=== PATIENT | male | born 1965 | race Caucasian/White ===

== ENCOUNTER 2020-12-22 10:15 | Outpatient (CLI) | payer MEDICARE, SELFPAY ==
[2020-12-22 12:20] LABS: Basophils % 1.1 %; Eosinophils # 0.1 10^3/uL (0.0-0.8); Eosinophils % 3.4 %; Hematocrit 42.9 % (42.0-52.0); Hemoglobin 14.3 g/dL (11.7-16.6); Lymphocytes # 1.5 10^3/uL (0.8-4.8); Lymphocytes % 38.5 %; Mean Corpuscular HGB Conc 33.3 g/dL (30.0-36.0); Mean Corpuscular Hemoglobin 33.4 pg (28.0-34.0); Mean Corpuscular Volume 100.2 fL (80-94); Mean Platelet Volume 11.1 fL (7.4-10.4); Monocytes # 0.5 10^3/uL (0.2-0.9); Monocytes % 12.1 %; Neutrophils # 1.69 10^3/uL (1.8-7.7); Neutrophils % 44.6 %; Nucleated Red Blood Cells % 0 %; Platelet Count 71 10^3/cmm (130-400); Red Blood Count 4.28 10^6/uL (4.1-5.3); Red Cell Distribution Width 14.7 % (12.1-15.1); White Blood Count 3.8 10^3/uL (4.0-10.0)
[2020-12-22 12:30] LABS: LAB Peripheral Smear Sent for Review
[2020-12-22 12:32] LABS: Alanine Aminotransferase 17 U/L (0-41); Albumin Level 3.1 g/dL (3.5-5.2); Alkaline Phosphatase 91 IU/L (40-130); Anion Gap 9.2 (5-19); Aspartate Amino Transferase 51 U/L (0-40); Blood Urea Nitrogen 9 mg/dL (6-20); Calcium 8.3 mg/dL (8.5-10.5); Carbon Dioxide 29 mmol/L (22-29); Chloride 109 mmol/L (98-107); Globulin 2.5 g/dL (1.3-4.6); Glomerular Filtration Rate 88.3 mL/min (90-130); Glucose 122 mg/dL (65-115); Lactate Dehydrogenase 190 U/L (135-225); Osmolality Calculated 296 mOsm/kg (285-295); Potassium 4.2 mmol/L (3.5-5.1); Sodium 143 mmol/L (136-145); Total Bilirubin 2.7 mg/dL (0.15-1.2); Total Protein 5.6 g/dL (6.6-8.7)
[2020-12-22 12:48] LABS: Folate Level 9.2 ng/mL (4.5-32.2); Vitamin B12 1103 pg/mL (232-1245)
--- NOTE | 2020-12-24 11:57 | ONC FU_ITS ---
Dr. Cunningham Patient Follow-Up Note Patient: Alexandr Moulton Unit #: [id number]: 1965 Dicatated By: Aj Cunningham M.D.Date of Visit:Dec 22, 2020 Onc Med Follow-up/Prog Note Chief Complaint: Thrombocytopenia and pulmnary nodules. History of Present Illness: This is a 55 year-old man with varying degrees of pancytopenia including moderately severe thrombocytopenia. On 05/09/2019 he was admitted to the hospital after presenting to the emergency room with severe pain in his right chest. He says that it felt like a pulled muscle, but it was severe enough that he couldn't hardly breathe. His evaluation in the emergency room included a CT pulmonary angiogram which showed no direct evidence of pulmonary emboli. Scattered pulmonary nodules were noted in the right upper lobe, right middle lobe, right lower lobe, and left upper lobe with reported differential including septic emboli and metastatic disease. There was a trace of right pleural effusion and there was a small amount of left pleural fluid surrounded by a thick wall, suggesting empyema. The liver contour was nodular, suggesting cirrhosis. His initial laboratory studies included CBC showing hemoglobin 15.0 g, white blood cell count 6000, and platelet count 76,000. The red cell indices were slightly macrocytic. Chem profile showed slightly elevated SGOT with borderline high bilirubin at 1.0 mg/dL. The other liver enzymes were normal. He had further evaluation with echocardiogram which showed normal left and normal right ventricular systolic function. The estimated left ventricular ejection fraction was 66%. There were no significant valve abnormalities noted. His CT abdomen/pelvis showed irregular liver surface and splenomegaly, consistent with cirrhosis. There were no acute findings. His follow-up CBC showed slightly low hemoglobin at 12.9 g with white blood cell count 3200 and platelet count 74,000. His repeat chem profile showed normal liver enzymes with bilirubin stable at 1.0 mg/dL. Albumin was a little low at 3.0 g/dL. I had seen him initially on 05/14/2019. 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 He was given empiric antibiotic coverage with Levaquin and instructions to return in 1 month, but he failed to return for follow-up. He did have a repeat chest CT done through the emergency room in June 2019. It again showed small pulmonary nodules bilaterally. His medical history is otherwise significant for hypertension and for previous back injury which resulted in permanent disability. He has longstanding history of alcohol abuse, which included up to a case of beer per day and some moonshine. He quit drinking in October 2020. INTERIM HISTORY: He had a follow-up visit with Stephanie Baird at the [facility] on 11/06/2020. His CBC at that time showed normal hemoglobin of 15.6 g with white blood cell count 5300 and platelet count 69,000. The red cell indices were slightly macrocytic. His comprehensive metabolic profile showed elevated total bilirubin at 1.9 mg/dL with mildly elevated SGOT and SGPT levels. B12 and folate levels were normal. His repeat CBC on 12/08/2020 showed hemoglobin 14.0 g, white blood cell count 3000, and platelet count 68,000. His bilirubin is 2.1 mg/dL. The SGOT remained mildly elevated. He is seen for a follow-up visit. He indicates that he stopped drinking 49 days ago. He has since then been feeling much better. His main complaint is that his feet hurt and they feel cold all the time. He also complains that they feel numb and tingly, like [id number]. His energy, though, is great. He is able to do light work. ECOG score is 1. He has good appetite and his weight is stable. He does not have fever or night sweats. He has his regular cough. He does not complain of shortness of breath or chest pain. He has no GI complaints. Bladder function has been okay, though he does note that his urine sometimes looks dark. He has chronic back pain, which is unchanged. He says his right leg is numb from his waist to his knee, but that has been going on for years. He has been having some headaches since he stopped drinking. He has not been dizzy or lightheaded. Medications: Gabapentin 1 (300 mg) Capsule Oral t.i.d. Allergies: Codeine Sulfate Vital Signs: Performed on Dec 22, 2020 11:04 Height - 67.00 in Weight - 188.8 lbs (LOW) BSA - 1.97 sq.m BMI - 29.57 Temperature - 98.0 F (LOW) Pulse - 65 /min Respiration - 17 /min BP - 139/82 mm(hg) O2 Sat - 98 % Pain - 0 Physical Examination: Constitutional - He looks pretty good generally, Eyes - Sclerae nonicteric. Conjunctivae clear, ENMT - No lesions noted in the oral cavity, Hematologic/Lymphatic - No cervical, clavicular, or axillary adenopathy, Respiratory - Lungs sound clear with some decrease in air movement bilaterally, Cardiovascular - Heart rhythm is regular. There is no murmur, gallop, or rub noted, Abdomen - Soft. Liver is not enlarged. Spleen is not palpable. There is no abdominal mass or ascites noted and there is no inguinal adenopathy, Extremities - Slight edema. Pedal pulses are palpable bilaterally, Neurologic - No focal neurologic deficits noted. Lab/Imaging: Test performed on Dec 22, 2020 11:54 Folate, Serum 9.2 ng/mL LDH (Total) 190 U/L Sodium 143 mmol/L Vitamin B12 1103 pg/mL Potassium 4.2 mmol/L Chloride 109 mmol/L CO2 29 mmol/L Anion Gap 9.2 BUN 9 mg/dL Creatinine 0.9 mg/dL Cr Clearance (Est) 114.9800 mL/min eGFR 88.3 mL/min Glucose 122 mg/dL Osmolality - Calculated 296 mOsm/kg Calcium 8.3 mg/dL Protein, Total 5.6 g/dL Albumin 3.1 g/dL Globulin 2.5 g/dL Bilirubin, Total 2.7 mg/dL ALT (SGPT) 17 U/L AST (SGOT) 51 U/L Alkaline Phosphatase 91 IU/L WBC 3.8 10 3/uL RBC 4.28 10 6/uL HGB 14.3 g/dL HCT 42.9 % MCV 100.2 fL MCH 33.4 pg MCHC 33.3 g/dL RDW 14.7 % Platelet Count 71 10 3/cmm MPV 11.1 fL Neutrophils 1.69 10 3/uL Lymphocytes 1.5 10 3/uL Monocytes 0.5 10 3/uL Eosinophils 0.1 10 3/uL Basophils 0.0 10 3/uL Neutrophil % 44.6 % Lymphocyte % 38.5 % Monocyte % 12.1 % Eosinophil % 3.4 % Basophils % 1.1 % NRBC % 0 % Problem List: 1. Patient with varying degrees of pancytopenia, but most consistently a moderately severe thrombocytopenia. This is presumed to be due to hypersplenism in association with cirrhosis of the liver. 2. He has a long history of alcohol abuse, and he has CT evidence of liver cirrhosis and associated splenomegaly. 3. He also has had CT evidence of scattered bilateral pulmonary nodules along with small left pleural effusion/thickening. Etiology is uncertain. The findings would be consistent with inflammatory disease versus malignancy. 4. Hypertension. 5. He has a history of prior back injury and back surgery, for which he has been on disability. Problems Addressed with this Encounter and Plan: 1. Patient with varying degrees of pancytopenia, but most consistently a moderately severe thrombocytopenia. This is presumed to be due to hypersplenism in association with cirrhosis of the liver. I will recheck his lab studies today and I will review his blood smear, but I do not think that any additional evaluation is going to be indicated. He will require ongoing follow-up, and I will tentatively plan to see him again in 3 months. 2. He previously had CT evidence of scattered bilateral pulmonary nodules bilaterally. He has had no follow-up since June 2019, and he does need to have a repeat chest CT. Signed By: Aj Cunningham M.D. <<Signature on File>>
== END 2020-12-22 10:16 | disposition home or self-care (01) ==
PROVIDERS: PCP Nurse Practitioner Family; Visit Provider Internal Medicine Medical Oncology
DX: D61.818 Other pancytopenia (principal); D69.6 Thrombocytopenia, unspecified; D73.1 Hypersplenism; K70.30 Alcoholic cirrhosis of liver without ascites; F10.10 Alcohol abuse, uncomplicated; R91.1 Solitary pulmonary nodule; J90 Pleural effusion, not elsewhere classified; I10 Essential (primary) hypertension; Z79.899 Other long term (current) drug therapy
CPT/HCPCS: 80053; 82607; 82746; 83615; 85025; 99214

== ENCOUNTER 2020-12-27 08:02 | Outpatient (CLI) | payer MEDICARE, SELFPAY ==
--- NOTE | 2020-12-27 08:11 | CT_ITS ---
WS: [id number] CT CHEST WITH INTRAVENOUS CONTRAST HISTORY: PULMONARY nodule TECHNIQUE: Contiguous 5 mm axial imaging performed on the thorax. Coronal and sagittal reformats are submitted. All CT scans at [facility] use at least one of these dose optimization techniq ues: automated exposure control; mA and/or kV adjustment per patient size (includes targeted exams wh ere dose is matched to clinical indication); or iterative reconstruction. CONTRAST: Omnipaque 300; 95 mL IV. DLP: 1064.13 mGy-cm. COMPARISON: 05/09/2019 Lungs and central airway: RIGHT lung is clear. Previously described multiple nodules are no longer pr esent. There is much improved aeration. There is extensive pleural thickening throughout the LEFT tho rax with scattered calcifications in the pleural thickening. There is nodularity along the surface of the pleura. All of these findings are stable since 05/09/2019 with no progression. Probably due to pr ior trauma and may be pleurodesis. Pleura: No layering pleural effusion. LEFT pleural thickening is stable Heart and pericardium: Normal size heart with no pericardial effusion. Mediastinum and andreina: No mediastinum or hilar adenopathy. Vessels: Normal size aortic and pulmonary artery. No coronary artery calcifications. Chest wall and lower neck: No soft tissue masses. Upper abdomen: Prior cholecystectomy. No bile duct dilatation. Surface of the liver is nodular sugges ting cirrhosis. Spleen is enlarged but similar to the prior study. Spleen extends over length greater than 13 cm. Small hiatal hernia. Osseous structures: There are numerous prior rib fractures with nonunion of the posterior lateral LEF T thorax. CT/CT chest w con* [id number] IMPRESSION: 1. Previously described pulmonary nodules throughout the RIGHT lung have compl etely resolved since 05/09/2019. 2. Diffuse stable LEFT pleural thickening with calcification. Most likely due to prior trauma. 3. 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 4. Prior cholecystectomy. 5. Cirrhosis with mild splenomegaly.
== END 2020-12-27 08:03 | disposition home or self-care (01) ==
PROVIDERS: PCP Nurse Practitioner Family; Visit Provider Nurse Practitioner Family
DX: R91.1 Solitary pulmonary nodule (principal); K74.60 Unspecified cirrhosis of liver; R16.1 Splenomegaly, not elsewhere classified; Z90.49 Acquired absence of other specified parts of digestive tract; S22.42XA Multiple fractures of ribs, left side, initial encounter for closed fracture; X58.XXXA Exposure to other specified factors, initial encounter
CPT/HCPCS: 71260; Q9967

== ENCOUNTER 2021-01-03 20:35 | Emergency (ER) | payer MEDICARE, SELFPAY ==
[2021-01-03 20:38] VITALS: BP 136/83; PULSE 78; RESP 22; TEMP 36.7; O2SAT 97; BMI 28.5
--- NOTE | 2021-01-03 21:44 | XRR_ITS ---
PROCEDURE INFORMATION: Exam: XR Chest Exam date and time: 01/03/2021 9:47 PM Age: 55 years old Clinical indication: Dyspnea and other: RT arm pain; Additional info: Cp TECHNIQUE: Imaging protocol: XR of the chest. Views: 1 view. COMPARISON: 1. CT chest w con* [id number] 12/27/2020 8:20 AM 2. CR Chest 2 views* [id number] 12/26/2018 3:11:15 AM FINDINGS: Lungs: Right lung remains clear. No acute infiltrates are identified. Pleural spaces: Unremarkable. No pleural effusion. No pneumothorax. Heart/Mediastinum: Heart is within normal limits of size. Bones/joints: There are multiple old left rib fractures and extensive pleural thickening on the left not significantly changed from previous. XR/XR chest 1V portable [id number] IMPRESSION: 1. Old posttraumatic changes in the left hemithorax. 2. No acute finding.
--- NOTE | 2021-01-03 21:44 | ECG_ITS ---
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 Measurements Intervals [place] Rate: 79 P: 68 SD: 126 QRS: 64 QRSD: 100 T: 45 QT: 398 QTc: 456 Interpretive Statements SINUS RHYTHM INCOMPLETE RIGHT BUNDLE BRANCH BLOCK [90+ ms QRS DURATION, TERMINAL R IN V1/V2, 40+ ms S IN I/aVL/V4/V5/V6] INTERPRETATION BASED ON A DEFAULT AGE OF 40 YEARS Compared to ECG 05/09/2019 02:40:29 Incomplete right bundle-branch block now present Sinus tachycardia no longer present Electronically Signed On 01-04-2021 19:27:08 CDT by Manny Oliveros M.D. [email or web address] now [employer]/store/NU/[id number]/[id number] f
[2021-01-04] VITALS (9 sets, daily range): BP systolic 124–158; BP diastolic 71–99; PULSE 67–77; RESP 16–23; O2SAT 96–98
--- NOTE | 2021-01-04 00:43 | W.ED.CHESTPA ---
HPI - Chest Pain General: Chief Complaint: Chest Pain Stated Complaint: cp/sob/right arm numbness Time Seen by Provider: 01/04/21 00:28 Source: patient Mode of arrival: ambulatory Limitations: no limitations History of Present Illness: HPI narrative: 55-year-old male states he has had a cough over the last 3 days. States he started having a sharp right-sided chest pain yesterday is been off and on. States seems to be worse with his cough and with palpation. He has had some dyspnea as well. Denies any dyspnea on exertion. Denies any diaphoresis. He denies nausea or vomiting. He has had no fevers. No known sick contacts. MD complaint: chest pain Associated symptoms: Reports dyspnea; Deny abdominal pain, fever(s), nausea or vomiting Review of Systems Const: Denies: fever(s), chills, body aches or change in appetite Eyes: Denies: blurry vision or eye discomfort ENMT: Denies: throat pain or dental pain Card: Reports: chest pain Resp: Reports: dyspnea and non-productive cough GI: Denies: abdominal pain, nausea, vomiting or diarrhea : Denies: dysuria Musc: Denies: neck pain or back pain Skin/Breast: Denies: rash Neuro: Denies: headache(s) Psych: Denies: depression Chuckie/Lymph: Denies: easy bruising All/Imm: Denies: urticaria Physical Exam Const: COMMON NORMALS: no acute distress, patient oriented x3 and healthy appearing HENMT: COMMON NORMALS: normocephalic and atraumatic HEAD & SCALP: normocephalic and atraumatic Eye: COMMON NORMALS: Equal, round and reactive pupils present and EOMs intact bilaterally PUPIL: Yes Equal, round and reactive pupils present Neck/C-Spine: COMMON NORMALS: full ROM and supple Chest: COMMONS NORMALS: normal inspection of the chest OTHER: point tender over right chest Resp: COMMON NORMALS: normal respiratory effort, No retractions, No use of accessory muscles and clear to auscultation bilaterally AUSCULTATION: clear to auscultation bilaterally Cardio: COMMON NORMALS: regular rate, regular rhythm and No murmurs present (Cardio) RATE: regular rate RHYTHM: regular rhythm GI: COMMON NORMALS: Normal to inspection, nondistended, normoactive bowel sounds present, Soft to palpation, non-tender and no masses PALPATION: Yes Soft to palpation Extremity: COMMON NORMALS: normal to inspection and full ROM Neuro: COMMON NORMALS: patient oriented x3, moves all extremities and no focal motor deficits Psych: COMMON NORMALS: mental status grossly normal, Normal thought process present and cooperative THOUGHT PROCESS: Normal thought process present Skin: COMMON NORMALS: no rashes or lesions noted and no wounds GENERAL SKIN EXAM: no rashes or lesions noted Course Vital Signs: Vital signs: Vital Signs Temperature 98.1 F 01/03/21 20:38 Pulse Rate 78 01/03/21 20:38 Respiratory Rate 20 H 01/04/21 03:10 Blood Pressure 136/83 01/03/21 20:38 Pulse Oximetry 98 01/04/21 03:10 MDM - Chest Pain MDM Narrative: Medical decision making narrative: Patient presents here with chest pain that is atypical in nature. He is point tender on exam and reproduces his pain is initial repeat troponins are negative. CT chest is negative as well. He does have a history of cirrhosis with no abdominal pain. His pain is resolved here. I feel he is stable for discharge. Is no signs of acute coronary syndrome. He is to follow-up his PCP and return if worsening. Lab Data: Labs: Lab Results 01/04/21 01/04/21 01/04/21 Range/Units 01:02 01:02 01:02 WBC 3.9 L (4.0-10.0) 10^3/ uL RBC 4.21 (4.1-5.3) 10^6/u L Hgb 14.1 (11.7-16.6) g/dL Hct 41.8 L (42.0-52.0) % MCV 99.3 H (80-94) fL MCH 33.5 (28.0-34.0) pg MCHC 33.7 (30.0-36.0) g/dL RDW 14.9 (12.1-15.1) % Plt Count 63 L (130-400) 10^3/c mm MPV 10.6 H (7.4-10.4) fL Neut % (Auto) 35.8 % Lymph % (Auto) 48.8 % [place] % (Auto) 11.3 % Eos % (Auto) 2.8 % Baso % (Auto) 1.0 % Neut # (Auto) 1.40 L (1.8-7.7) 10^3/u L Lymph # (Auto) 1.9 (0.8-4.8) 10^3/u L [place] # (Auto) 0.4 (0.2-0.9) 10^3/u L Eos # (Auto) 0.1 (0.0-0.8) 10^3/u L Baso # (Auto) 0.0 (0.0-0.1) 10^3/u L Nucleated RBC % (a uto) 0 % Nucleated RBCs # 0.0 /100WBC D-Dimer (0-0.59) ug/mIFE U Sodium 140 (136-145) mmol/L Potassium 4.2 (3.5-5.1) mmol/L Chloride 107 (98-107) mmol/L Carbon Dioxide 28 (22-29) mmol/L Anion Gap 9.2 (5-19) BUN 9 (6-20) mg/dL Creatinine 0.9 (0.7-1.2) mg/dL GFR Calculation 88.3 L (90-130) mL/min Glucose 96 (65-115) mg/dL Calculated Osmolal ity 289 (285-295) mOsm/k g Calcium 8.6 (8.5-10.5) mg/dL Total Bilirubin 1.8 H (0.15-1.2) mg/dL AST 43 H (0-40) U/L ALT 13 (0-41) U/L Alkaline Phosphata se 94 (40-130) IU/L Troponin T Baselin e 11 (0-15) ng/L Troponin T 120 Min alexander (0-15) ng/L Delta Troponin T (0-10) ABS# NT-Pro-B Natriuret Pep (0-125) pg/mL Total Protein 6.2 L (6.6-8.7) g/dL Albumin 3.2 L (3.5-5.2) g/dL Globulin 3.0 (1.3-4.6) g/dL Lipase (13-60) U/L 01/04/21 01/04/21 01/04/21 Range/Units 01:02 01:02 03:03 WBC (4.0-10.0) 10^3/ uL RBC (4.1-5.3) 10^6/u L Hgb (11.7-16.6) g/dL Hct (42.0-52.0) % MCV (80-94) fL MCH (28.0-34.0) pg MCHC (30.0-36.0) g/dL RDW (12.1-15.1) % Plt Count (130-400) 10^3/c mm MPV (7.4-10.4) fL Neut % (Auto) % Lymph % (Auto) % [place] % (Auto) % Eos % (Auto) % Baso % (Auto) % Neut # (Auto) (1.8-7.7) 10^3/u L Lymph # (Auto) (0.8-4.8) 10^3/u L [place] # (Auto) (0.2-0.9) 10^3/u L Eos # (Auto) (0.0-0.8) 10^3/u L Baso # (Auto) (0.0-0.1) 10^3/u L Nucleated RBC % (a uto) % Nucleated RBCs # /100WBC D-Dimer 0.34 (0-0.59) ug/mIFE U Sodium (136-145) mmol/L Potassium (3.5-5.1) mmol/L Chloride (98-107) mmol/L Carbon Dioxide (22-29) mmol/L Anion Gap (5-19) BUN (6-20) mg/dL Creatinine (0.7-1.2) mg/dL GFR Calculation (90-130) mL/min Glucose (65-115) mg/dL Calculated Osmolal ity (285-295) mOsm/k g Calcium (8.5-10.5) mg/dL Total Bilirubin (0.15-1.2) mg/dL AST (0-40) U/L ALT (0-41) U/L Alkaline Phosphata se (40-130) IU/L Troponin T Baselin e (0-15) ng/L Troponin T 120 Min alexander (0-15) ng/L Delta Troponin T (0-10) ABS# NT-Pro-B Natriuret Pep 160 H (0-125) pg/mL Total Protein (6.6-8.7) g/dL Albumin (3.5-5.2) g/dL Globulin (1.3-4.6) g/dL Lipase 11 L (13-60) U/L 01/04/21 Range/Units 03:05 WBC (4.0-10.0) 10^3/ uL RBC (4.1-5.3) 10^6/u L Hgb (11.7-16.6) g/dL Hct (42.0-52.0) % MCV (80-94) fL MCH (28.0-34.0) pg MCHC (30.0-36.0) g/dL RDW (12.1-15.1) % Plt Count (130-400) 10^3/c mm MPV (7.4-10.4) fL Neut % (Auto) % Lymph % (Auto) % [place] % (Auto) % Eos % (Auto) % Baso % (Auto) % Neut # (Auto) (1.8-7.7) 10^3/u L Lymph # (Auto) (0.8-4.8) 10^3/u L [place] # (Auto) (0.2-0.9) 10^3/u L Eos # (Auto) (0.0-0.8) 10^3/u L Baso # (Auto) (0.0-0.1) 10^3/u L Nucleated RBC % (a uto) % Nucleated RBCs # /100WBC D-Dimer (0-0.59) ug/mIFE U Sodium (136-145) mmol/L Potassium (3.5-5.1) mmol/L Chloride (98-107) mmol/L Carbon Dioxide (22-29) mmol/L Anion Gap (5-19) BUN (6-20) mg/dL Creatinine (0.7-1.2) mg/dL GFR Calculation (90-130) mL/min Glucose (65-115) mg/dL Calculated Osmolal ity (285-295) mOsm/k g Calcium (8.5-10.5) mg/dL Total Bilirubin (0.15-1.2) mg/dL AST (0-40) U/L ALT (0-41) U/L Alkaline Phosphata se (40-130) IU/L Troponin T Baselin e (0-15) ng/L Troponin T 120 Min alexander 12.25 (0-15) ng/L Delta Troponin T 1.25 (0-10) ABS# NT-Pro-B Natriuret Pep (0-125) pg/mL Total Protein (6.6-8.7) g/dL Albumin (3.5-5.2) g/dL Globulin (1.3-4.6) g/dL Lipase (13-60) U/L Imaging Data^: CXR: Radiologist's impression: [address] [address] XRay Report Signed Patient: Alexandr Moulton Unit #: [id number] : 1965 Age/Sex: 55 / M ADM Date: 01/03/21 Loc: ER Room/Bed: Attending Dr: Ordering Provider/Ordering MD: Orlin Baker MD Date of Service: 01/03/21 Procedure(s): XR chest 1V portable [id number] Accession Number(s): [id number] Report Number: [id number] PROCEDURE INFORMATION: Exam: XR Chest Exam date and time: 01/03/2021 9:47 PM Age: 55 years old Clinical indication: Dyspnea and other: RT arm pain; Additional info: Cp TECHNIQUE: Imaging protocol: XR of the chest. Views: 1 view. COMPARISON: 1. CT chest w con* [id number] 12/27/2020 8:20 AM 2. CR Chest 2 views* [id number] 12/26/2018 3:11:15 AM FINDINGS: Lungs: Right lung remains clear. No acute infiltrates are identified. Pleural spaces: Unremarkable. No pleural effusion. No pneumothorax. Heart/Mediastinum: Heart is within normal limits of size. Bones/joints: There are multiple old left rib fractures and extensive pleural thickening on the left not significantly changed from previous. XR/XR chest 1V portable [id number] IMPRESSION: 1. Old posttraumatic changes in the left hemithorax. 2. No acute finding. EKG Data^: EKG 1: Attestation: I personally reviewed and interpreted this EKG as follows: EKG interpretation date: 01/04/21 EKG interpretation time: 20:40 Interpretation: nsr hr [address] or t wave abnormalities qrs 100 qtc 432 EKG 2: Attestation: I personally reviewed and interpreted this EKG as follows: EKG interpretation date: 01/04/21 EKG interpretation time: 04:09 Interpretation: nsr hr [address] or t wave abnormalities qrs 101 qtc 443 Discharge Plan Discharge Patient Disposition: Home Clinical Impression: Chest pain Qualifiers: Chest pain type: unspecified Qualified Code(s): R07.9 - Chest pain, unspecified Condition: Stable Prescriptions: New hydrocodone-acetaminophen 5-325 mg tablet 1 tab PO Q6H PRN (Reason: pain) Qty: 14 RF: 0 Discharge Orders: Discharge ED (Routine); Ordered 01/04/21 Ordered By: Orlin Baker Referrals: Stephanie Baird FNP [Primary Care Provider] - Discharge Diet: Advance as tolerated Discharge Activity: Resume usual activity Patient Instructions: Chest Pain (ED), Opioid Safety Coding Level of Care Code ED Vp Of Customer Experience Strategy for Chg Fwd Exam Comprehensive
[2021-01-04 01:09] LABS: Eosinophils # 0.1 10^3/uL (0.0-0.8); Eosinophils % 2.8 %; Hematocrit 41.8 % (42.0-52.0); Hemoglobin 14.1 g/dL (11.7-16.6); Lymphocytes # 1.9 10^3/uL (0.8-4.8); Lymphocytes % 48.8 %; Mean Corpuscular HGB Conc 33.7 g/dL (30.0-36.0); Mean Corpuscular Hemoglobin 33.5 pg (28.0-34.0); Mean Corpuscular Volume 99.3 fL (80-94); Mean Platelet Volume 10.6 fL (7.4-10.4); Monocytes # 0.4 10^3/uL (0.2-0.9); Monocytes % 11.3 %; Neutrophils % 35.8 %; Nucleated Red Blood Cells % 0 %; Platelet Count 63 10^3/cmm (130-400); Red Blood Count 4.21 10^6/uL (4.1-5.3); Red Cell Distribution Width 14.9 % (12.1-15.1); White Blood Count 3.9 10^3/uL (4.0-10.0)
[2021-01-04 01:23] LABS: D Dimer 0.34 ug/mIFEU (0-0.59)
[2021-01-04 01:29] LABS: Alanine Aminotransferase 13 U/L (0-41); Albumin Level 3.2 g/dL (3.5-5.2); Alkaline Phosphatase 94 IU/L (40-130); Anion Gap 9.2 (5-19); Aspartate Amino Transferase 43 U/L (0-40); Blood Urea Nitrogen 9 mg/dL (6-20); Calcium 8.6 mg/dL (8.5-10.5); Carbon Dioxide 28 mmol/L (22-29); Chloride 107 mmol/L (98-107); Glomerular Filtration Rate 88.3 mL/min (90-130); Glucose 96 mg/dL (65-115); Osmolality Calculated 289 mOsm/kg (285-295); Potassium 4.2 mmol/L (3.5-5.1); Sodium 140 mmol/L (136-145); Total Bilirubin 1.8 mg/dL (0.15-1.2); Total Protein 6.2 g/dL (6.6-8.7)
[2021-01-04 01:31] LABS: Troponin(5th) Baseline 11 ng/L (0-15)
[2021-01-04 01:39] LABS: NT Pro B Type Natriuretic Pept 160 pg/mL (0-125)
[2021-01-04] MEDS: ondansetron 2 mg/ML SDV 2 mL 4 MG IVP (01:42)
[2021-01-04] MEDS: morphine 4 mg/mL SDV 1 mL IVP (01:42)
--- NOTE | 2021-01-04 02:29 | CTR_ITS ---
PROCEDURE INFORMATION: Exam: CTA Chest With Contrast Exam date and time: 01/04/2021 2:33 AM Age: 55 years old Clinical indication: Chest pressure; Prior surgery; Surgery type: Left lung aspiration. ; Patient HX: Anterior chest pain with dyspnea. ; Additional info: Cp TECHNIQUE: Imaging protocol: Computed tomographic angiography of the chest with contrast. 3D rendering (Not supervised by radiologist): MIP and/or 3D reconstructed images were created by the technologist. Radiation optimization: All CT scans at this facility use at least one of these dose optimization techniques: automated exposure control; mA and/or kV adjustment per patient size (includes targeted exams where dose is matched to clinical indication); or iterative reconstruction. Contrast material: OMNI 350; Contrast volume: 75 ml; Contrast route: INTRAVENOUS (IV); COMPARISON: CTA CHEST-PULMONARY EMB [id number] 05/09/2019, CHEST CT DATED 12/27/2020. RADIATION DOSE METRICS: Total DLP (mGy-cm): 584.34 FINDINGS: Pulmonary arteries: Normal. No pulmonary emboli. Aorta: Unremarkable. No aortic aneurysm. No aortic dissection. Lungs: Unchanged extensive pleural thickening with scattered calcifications in the left hemithorax. Stable areas of comet tail sign in the lateral left upper lobe, likely representing round atelectasis. A calcified granuloma is seen in the posteromedial left lung. No pneumothorax. Pleural spaces: See Lungs findings. Heart: Unremarkable. No cardiomegaly. No pericardial effusion. Lymph nodes: Unremarkable. No enlarged lymph nodes. Liver: The liver demonstrates nodular contour and volume redistribution, consistent with cirrhosis. A replaced left hepatic artery is incidentally noted. Gallbladder and bile ducts: The gallbladder has been surgically removed. Spleen: Enlarged spleen measuring 17.6 cm in AP dimension. Small accessory splenules are again noted in the left upper quadrant. Bones/joints: Old rib fracture deformities noted on the left. Degenerative changes of the spine and bilateral shoulder joints noted. Soft tissues: Unremarkable. CT/CT angio chest PE protcl [id number] IMPRESSION: 1. No pulmonary embolus or other acute pathology in the chest. 2. Stable diffuse left pleural thickening with calcifications and rounded atelectasis. 3. Cirrhotic liver with stigmata of portal hypertension, manifested by splenomegaly. Radiation Dose CTDIVOL = (mGy): DLP = 584.34 (mGy-cm)
[2021-01-04] MEDS: iohexol 350 mg/mL 100 mL Btl IV (02:51)
[2021-01-04] MEDS: HYDROmorphone 1 mg/mL INJ 1 mL IVP (03:10)
[2021-01-04 03:28] LABS: Lipase 11 U/L (13-60)
[2021-01-04 03:28] LABS: Troponin 5 2HR 12.25 ng/L (0-15); Troponin 5 2HR Delta 1.25 ABS# (0-10)
--- NOTE | 2021-01-04 03:44 | ECG_ITS ---
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 Measurements Intervals [place] Rate: 78 P: 51 FL: 135 QRS: 56 QRSD: 101 T: 35 QT: 410 QTc: 468 Interpretive Statements SINUS RHYTHM WITH OCCASIONAL VENTRICULAR PREMATURE COMPLEXES Compared to ECG 01/03/2021 20:40:50 Ventricular premature complex(es) now present Incomplete right bundle-branch block no longer present Electronically Signed On 01-04-2021 19:33:20 CDT by Manny Oliveros M.D. [id number]
== END 2021-01-04 04:40 | disposition home or self-care (01) ==
PROVIDERS: Emergency Provider Emergency Medicine; PCP Nurse Practitioner Family
DX: R07.9 Chest pain, unspecified (principal)
CPT/HCPCS: 36415; 71045; 71275; 80053; 83690; 83880; 84484; 85025; 85378; 93005; 96374; 96375; 99284; J1170; J2270; J2405; Q9967

== ENCOUNTER 2021-01-11 08:01 | Outpatient (CLI) | payer MEDICARE, SELFPAY ==
--- NOTE | 2021-01-11 08:08 | US_ITS ---
WS: [id number] ULTRASOUND ABDOMEN LIMITED CLINICAL INFORMATION: ELEVATED LIVER FUNCTION COMPARISON: None. FINDINGS: Exam limited by bowel gas Liver Size: Normal. Craniocaudal length: 12.9 cm. Echogenicity: Dense Surface nodularity: None. Mass (size and location): None. Gallbladder Cholecystectomy Pancreas Normal as visualized. Right kidney: Normal. Hydronephrosis: None. Size: 10.5 cm x 4.6 cm x 5.2 cm. Abdominal aorta and IVC Visualized portions are normal. Ascites: None. US/US abdomen limited [id number] IMPRESSION: Exam limited by bowel gas. 1. Diffuse fatty infiltration of the liver. 2. Cholecystectomy. 3. No hydronephrosis in right kidney.
== END 2021-01-11 08:02 | disposition home or self-care (01) ==
LOC: US 08:03
PROVIDERS: PCP Nurse Practitioner Family; Visit Provider Nurse Practitioner Family
DX: E80.6 Other disorders of bilirubin metabolism (principal); R94.5 Abnormal results of liver function studies; F10.20 Alcohol dependence, uncomplicated; K76.0 Fatty (change of) liver, not elsewhere classified
CPT/HCPCS: 76705

== ENCOUNTER 2021-01-30 22:11 | Emergency (ER) | payer MEDICARE, SELFPAY ==
[2021-01-30 22:16] VITALS: BP 164/68; PULSE 74; RESP 16; TEMP 36.9; O2SAT 98; BMI 28.5
[2021-01-30 22:24] VITALS: BP 156/94; PULSE 69; RESP 24; O2SAT 96
--- NOTE | 2021-01-30 22:28 | XRR_ITS ---
PROCEDURE INFORMATION: Exam: XR Lumbosacral Spine Exam date and time: 01/30/2021 10:31 PM Age: 55 years old Clinical indication: Low back pain; Additional info: Fall, back pain TECHNIQUE: Imaging protocol: XR of the lumbosacral spine. Views: 2 or 3 views. COMPARISON: CT abdomen pelvis w con* [id number] 05/10/2019 8:40 AM FINDINGS: Bones/joints: Multilevel degenerative disc space disease with disc space narrowing and productive degenerative endplate changes throughout the spine. Soft tissues: Unremarkable. Vasculature: Aortic atherosclerotic calcifications. XR/XR lumbar spine 2-3V* [id number] IMPRESSION: 1. Negative for fracture or dislocation. 2. Multilevel degenerative disc space disease with disc space narrowing and productive degenerative endplate changes throughout the spine. 3. Aortic atherosclerotic calcifications.
--- NOTE | 2021-01-30 22:29 | W.ED.FALL ---
HPI - Fall General: Chief Complaint: Fall Stated Complaint: foot pain Time Seen by Provider: 01/30/21 22:15 History of Present Illness: HPI Narrative: Says he has a history of his leg just spasming which he is being treated currently by Dr. Pollard. Said he has been placed Neurontin which not help helping. Patient states he is walking on steps this evening his legs spasmed and he come down on his buttocks and now he has low back pain. Has a history of prior lumbar back surgery. MD complaint: fall Onset (ago): minute(s) Fall from: standing and down stairs (#) Fall witnessed: yes, by family Place fall occurred: home Loss of consciousness: None Prolonged down time: no Symptoms prior to fall: other (Legs and intermittent spasm) Context: tripped/slipped Location of injury: back Severity: mild Severity scale (1-10): 4 Quality: aching Associated symptoms-after fall: Reports no associated symptoms; Denies abdominal pain, chest pain or headache(s) Review of Systems Const: Denies: fever(s), chills or body aches Eyes: Denies: change in vision or blurry vision ENMT: Denies: throat pain or nasal congestion Card: Denies: chest pain or dyspnea on exertion Resp: Denies: dyspnea, productive cough or non-productive cough GI: Denies: abdominal pain, nausea or vomiting : Denies: difficulty urinating Musc: Reports: back pain; Denies: extremity pain Skin/Breast: Denies: rash Neuro: Denies: headache(s) Psych: Denies: anxiety or depression Chuckie/Lymph: Denies: easy bruising Physical Exam Const: COMMON NORMALS: no acute distress, average body habitus and patient oriented x3 HENMT: COMMON NORMALS: normocephalic HEAD & SCALP: normal to inspection and normocephalic FACE & SINUS: normal facial exam Eye: COMMON NORMALS: conjunctivae normal GENERAL EYE: appearance normal, both eyes and all related structures CONJUNCTIVA: Yes conjunctivae normal Neck/C-Spine: COMMON NORMALS: no JVD Chest: COMMONS NORMALS: normal inspection of the chest Resp: COMMON NORMALS: normal respiratory effort Cardio: COMMON NORMALS: no JVD GI: COMMON NORMALS: Normal to inspection, nondistended, normoactive bowel sounds present Back/Pelvis: LUMBAR SPINE/LOWER BACK: Yes lumbar spinal tenderness Neuro: COMMON NORMALS: patient oriented x3 OTHER: Both legs jerk intermittently at the same time Course Vital Signs: Vital signs: Vital Signs Temperature 98.4 F 01/30/21 22:16 Pulse Rate 74 01/30/21 22:16 Respiratory Rate 16 01/30/21 22:16 Blood Pressure 164/68 01/30/21 22:16 Pulse Oximetry 98 01/30/21 22:16 Discharge Plan Discharge Prescriptions: No Action hydrocodone-acetaminophen 5-325 mg tablet 1 tab PO Q6H PRN (Reason: pain) Qty: 14 RF: 0 Coding Level of Care Code ED Tool Grinding Machine Operator for Morteza Mi
[2021-01-30] MEDS: orphenadrine 30 mg/mL Inj 2 mL 60 MG IVP (22:47)
[2021-01-30] MEDS: CELEcoxib 200 mg Capsule 400 MG PO (23:11)
[2021-01-30 23:26] VITALS: BP 128/57; PULSE 72; RESP 22; TEMP 36.4; O2SAT 96
== END 2021-01-30 23:30 | disposition home or self-care (01) ==
PROVIDERS: Emergency Provider Nurse Practitioner Family; PCP Nurse Practitioner Family
DX: R25.2 Cramp and spasm (principal)
CPT/HCPCS: 72100; 96374; 99283; J2360

== ENCOUNTER 2021-05-21 12:50 | Outpatient (CLI) | payer MEDICARE, SELFPAY ==
--- NOTE | 2021-05-21 13:00 | MR_ITS ---
WS: [id number] MRI LUMBAR SPINE NONCONTRAST TECHNIQUE: Sagittal T1, T2 and STIR imaging. Axial T1 and T2 imaging. CLINICAL INFORMATION: CHRONIC LOW BACK PAIN COMPARISON: None. FINDINGS: Mild lumbar curve. No acute compression. Disc space narrowing worse at L2-3 L3-4 L4-5 and L5-S1 with endplate degenerative changes. Slight anterolisthesis L5 on S1. Endplate edema at L2-L3. Subchondral cystic change L3-4. Prior postoperative changes L5-S1 hemilaminectomy. L1-L2: Normal. L2-L3: Mild disc bulging and osteophytic ridging. Left foraminal protrusion with moderate left forami nal narrowing. Right foramen is patent. Mild facet arthropathy. L3-L4: Mild disc bulging and osteophytic ridging. Small left foraminal protrusion with mild left fora christine narrowing. Right foramen is patent. Mild facet arthropathy. L4-L5: Mild disc osteophyte complex with endplate ridging. Small right foraminal protrusion with mild right foraminal narrowing. Left foramen is patent. Mild facet arthropathy. L5-S1: Prior postoperative changes right hemilaminectomy. Mild disc osteophyte complex with endplate ridging. Moderate's right foraminal narrowing. Mild facet arthropathy. Slight narrowing of the right subarticular recess. Visualized pelvic bony structures: Normal. Paravertebral soft tissues: Normal. MR/MR lumbar spine wo con* [id number] IMPRESSION: 1. Mild lumbar curve. No acute compression. Prior postoperative changes L5-S1. 2. Moderate right L5-S1 foraminal narrowing. 3. Right foraminal protrusion L4-5 with mild right foraminal narrowing. 4. Moderate left L2-3 and mild left L3-4 foraminal narrowing. 5. Disc space narrowing L2-L5 with endplate degenerative changes described abo ve.
== END 2021-05-21 12:51 | disposition home or self-care (01) ==
PROVIDERS: PCP Nurse Practitioner Family; Visit Provider Nurse Practitioner Family
DX: M54.5 Low back pain (principal); G62.9 Polyneuropathy, unspecified
CPT/HCPCS: 72148

== ENCOUNTER 2021-05-28 09:27 | Outpatient (CLI) | payer MEDICARE, SELFPAY ==
--- NOTE | 2021-05-28 09:38 | XR_ITS ---
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 Findings: No compression fractures are seen. There is a minimal 0.4 cm subluxation of L5 on S1. There is degen erative disc narrowing at all levels from L2-L3 through L5-S1. Osteoarthritic spurring from L2 throug h L5 is moderate. There is limitation of motion on flexion and extension but no change in subluxation. XR/XR lumbar spine f/e only [id number] Impression: 1. Osteoarthritis and degenerative disc disease from L2-L3 through L5-S1. 2. Subluxation is 0.4 cm of L5 on S1. 3. Limitation of motion and no change in subluxation on flexion and extension.
== END 2021-05-28 09:28 | disposition home or self-care (01) ==
PROVIDERS: PCP Nurse Practitioner Family; Visit Provider Nurse Practitioner
DX: M96.1 Postlaminectomy syndrome, not elsewhere classified (principal); M47.816 Spondylosis without myelopathy or radiculopathy, lumbar region; M51.36 Other intervertebral disc degeneration, lumbar region; M51.37 Other intervertebral disc degeneration, lumbosacral region
CPT/HCPCS: 72120

== ENCOUNTER 2022-09-03 20:38 | Emergency (ER) | payer MEDICARE, SELFPAY ==
[2022-09-03 20:42] VITALS: BP 163/94; PULSE 89; RESP 16; TEMP 36.7; O2SAT 98
--- NOTE | 2022-09-03 20:48 | W.ED.EXTPRO ---
HPI - Extremity Problem General: Chief complaint: Extremity Problem,Nontraumatic Stated complaint: Right arm and shoulder pain Time Seen by Provider: 09/03/22 20:48 History of Present Illness: Mr. Moulton is a 57-year-old gentleman with history of back surgeries presenting to the emergency department due to arm pain. Onset of symptoms is atraumatic without known specific provoking event approximately 2 months ago and has progressively worsened. Pain now includes entire right arm which feels numb and weak. He also endorses some radiation of the right leg. Intensity symptoms is severe and worse with any palpation or range of motion. No other specific changes in health, exacerbating, or alleviating factors identified. Onset (ago): month(s) Location: right and upper extremity Quality: stabbing, aching and sharp Radiation: distal Relieving factors: nothing Exacerbating factors: range of motion and palpation Associated symptoms: Reports no associated symptoms Review of Systems General: Reports: 10 or more systems reviewed and unremarkable except in HPI and below PFSH ED PFSH: Medical History (Updated 09/10/22 @ 06:49 by Saran Lyons MD) Cirrhosis of liver Surgical History (Updated 09/10/22 @ 06:49 by Saran Lyons MD) No significant past surgical history Physical Exam Const: COMMON NORMALS: alert GENERAL APPEARANCE: cooperative and well developed HENMT: COMMON NORMALS: normocephalic and atraumatic HEAD & SCALP: normocephalic and atraumatic Eye: COMMON NORMALS: conjunctivae normal CONJUNCTIVA: Yes conjunctivae normal SCLERA: sclerae normal Neck/C-Spine: COMMON NORMALS: supple GENERAL: Yes trachea midline OTHER: Significant tenderness to palpation of the right trapezius with some evidence of muscle spasm. Resp: COMMON NORMALS: normal respiratory effort EFFORT & INSPECTION: Yes able to speak in complete sentences Cardio: COMMON NORMALS: regular rate and regular rhythm RATE: regular rate RHYTHM: regular rhythm GI: COMMON NORMALS: Soft to palpation PALPATION: Yes Soft to palpation and No Tenderness to palpation present (GI) PERCUSSION: normal to percussion Extremity: NARRATIVE EXTREMITY EXAM: Tenderness to palpation of the anterior and superior right shoulder. Distal CMS intact with limitation in range of motion secondary to pain. No overlying skin lesions. GENERAL: Yes normal exam except as noted and No edema Neuro: COMMON NORMALS: moves all extremities SENSORIUM/ORIENTATION: Yes alert and No Orientation impaired Psych: COMMON NORMALS: mental status grossly normal and Normal thought process present THOUGHT PROCESS: Normal thought process present Course Vital Signs: Vital signs: Vital Signs Temperature 98.1 F 09/03/22 20:42 Pulse Rate 65 09/04/22 00:54 Respiratory Rate 18 09/04/22 00:54 Blood Pressure 136/85 09/04/22 00:54 Pulse Oximetry 97 09/04/22 00:54 Oxygen Delivery Me thod 09/03/22 20:42 MDM - Extremity (Nontraumatic) Medical Decision Making 57-year-old gentleman presenting with arm pain that has been progressive for the past few months. Exam as above. Given radiation to the chest admit that further evaluation is necessary. EKG shows sinus rhythm with incomplete right bundle-branch block, no STEMI. X-rays negative for acute fracture. CT imaging with degenerative changes without acute fracture identified. Upon reassessment after treatment patient feels improved. Given laboratory findings as well as physical exam findings I do not believe that the patient or his inpatient admission at this time. I will plan to have him follow-up with orthopedics and primary care. The results of ED evaluation were discussed with the patient including prescriptions and/or symptomatic cares (if applicable) including appropriate and responsible use, followup plan, and return precautions. The patient verbalized understanding and felt safe for discharge. Lab Data 09/03/22 21:25 09/03/22 21:25 Radiology Impressions Chest X-Ray 09/03/22 21:06 IMPRESSION: 1. 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 2. No acute findings. Humerus X-Ray 09/03/22 21:07 IMPRESSION: No acute findings. Cervical Spine CT 09/03/22 22:12 IMPRESSION: 1. No fracture or acute finding. 2. Progressive degenerative changes at multiple levels as described. Chest CT 09/03/22 22:12 IMPRESSION: 1. Stable chest findings. 2. Stable chronic left pleural thickening with subjacent regions of rounded atelectasis. No acute pulmonary disease identified. 3. Stable splenomegaly with cirrhotic liver morphology and findings of portal hypertension. Head CT 09/03/22 22:12 IMPRESSION: No acute intracranial abnormality. Laboratory Results WBC 2.3 10^3/uL (4.0-10.0) L 09/03/22 21:25 RBC 4.07 10^6/uL (4.1-5.3) L 09/03/22: Hgb 12.4 g/dL (11.7-16.6) 09/03/22: Hct 38.2 % (42.0-52.0) L 09/03/22: MCV 93.9 fl (80-94) 09/03/22: MCH 30.5 pg (28.0-34.0) 09/03/22: MCHC 32.5 g/dL (30.0-36.0) 09/03/22: RDW 15.6 % (12.1-15.1) H 09/03/22: Plt Count 50 10^3/cmm (130-400) L 09/03/22: MPV 10.5 fL (7.4-10.4) H 09/03/22: Neut % (Auto) 45.8 % 09/03/22: Lymph % (Auto) 42.2 % 09/03/22: [place] % (Auto) 9.8 % 09/03/22: Eos % (Auto) 1.8 % 09/03/22: Baso % (Auto) 0.4 % 09/03/22 Neut # (Auto) 1.03 10^3/uL (1.8-7.7) L 09/03/22: Lymph # (Auto) 1.0 10^3/uL (0.8-4.8) 09/03/22: [place] # (Auto) 0.2 10^3/uL (0.2-0.9) 09/03/22: Eos # (Auto) 0.0 10^3/uL (0.0-0.8) 09/03/22: Baso # (Auto) 0.0 10^3/uL (0.0-0.1) 09/03/22: Nucleated RBC % (auto) 0 % 09/03/22: Nucleated RBCs # 0.0 /100WBC 09/03/22: Sodium 144 mmol/L (136-145) 09/03/22: Potassium 3.7 mmol/L (3.5-5.1) 09/03/22 21:25 Chloride 112 mmol/L (98-107) H 09/03/22 21:25 Carbon Dioxide 23 mmol/L (22-29) 09/03/22 21:25 Anion Gap 12.7 (5-19) 09/03/22 21:25 BUN 7 mg/dL (6-20) 09/03/22 21:25 Creatinine 0.8 mg/dL (0.7-1.2) 09/03/22 21:25 GFR Calculation 100.4 mL/min (90-130) 09/03/22 21:25 Glucose 120 mg/dL (65-115) H 09/03/22 21:25 Calculated Osmolality 297 mOsm/kg (285-295) H 09/03/22 21:25 Calcium 8.3 mg/dL (8.5-10.5) L 09/03/22 21:25 Total Bilirubin 1.7 mg/dL (0.15-1.2) H 09/03/22 21:25 AST 38 U/L (0-40) 09/03/22 21:25 ALT 14 U/L (0-41) 09/03/22 21:25 Alkaline Phosphatase 71 U/L (40-130) 09/03/22 21:25 Troponin T Baseline 9 ng/L (0-15) 09/03/22 21:25 Troponin T 120 Minute 9.51 ng/L (0-15) 09/03/22 23:18 Delta Troponin T 0.51 ABS# (0-10) 09/03/22 23:18 C-Reactive Protein 3.0 mg/L (0.0-4.9) 09/03/22 21:25 NT-Pro-B Natriuret Pep 149 pg/mL (0-125) H 09/03/22 21:25 Total Protein 5.7 g/dL (6.6-8.7) L 09/03/22 21:25 Albumin 3.4 g/dL (3.5-5.2) L 09/03/22 21:25 Globulin 2.3 g/dL (1.3-4.6) 09/03/22 21:25 Discharge Plan Discharge Patient Disposition: Home Clinical Impression: Arm and leg pain, Paresthesia and pain of right extremity, Leukopenia, Thrombocytopenia, Elevated bilirubin, Cirrhosis of liver, Degenerative disc disease Condition: Stable Prescriptions: New oxycodone 5 mg tablet 5 mg PO Q4H PRN (Reason: pain) Qty: 10 0RF cyclobenzaprine 10 mg tablet 10 mg PO TID PRN (Reason: muscle spasm) Qty: 30 0RF No Action hydrocodone-acetaminophen 5-325 mg tablet 1 tab PO Q6H PRN (Reason: pain) Qty: 14 0RF Celebrex 100 mg capsule 100 mg PO BID Qty: 20 0RF Discharge Orders: Discharge ED (Routine); Ordered 09/04/22 Ordered By: Saran Lyons Referrals: Stephanie Baird, RELIEF MASTER [Primary Care Provider] - Discharge Diet: Usual diet Discharge Activity: Increase activity as tolerated Patient Instructions: Cirrhosis of the Liver (ED), Paresthesia (ED), Cervical Radiculopathy (ED), Muscle Spasm (ED), Opioid Safety, Pain Management Activity Restrictions/Additional Instructions: Thank you for visiting the emergency department. You were seen and evaluated for arm pain, neck pain, and sensory changes. The exact cause of your symptoms is unclear though it does not appear to need inpatient management at this time. I will prescribe steroids, muscle relaxers, and oxycodone. Please use these cautiously and follow-up precautions regarding opioid use. You may use ghja-fby-lyhrpnq medications such as acetaminophen and ibuprofen for pain however please do not exceed the daily recommended dosage as listed on the packaging and please keep in mind that many namebrand medications contain the same active ingredients. Please avoid these medications if previously instructed to do so by another physician due to other underlying medical condition. I will message case management for follow-up with orthopedics. Additionally I recommend follow-up with your primary care provider for consideration of referral to pain management. Return to the emergency department for anything that you are concerned about and feel needs emergency department evaluation. 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
--- NOTE | 2022-09-03 21:06 | XRR_ITS ---
PROCEDURE INFORMATION: Exam: XR Chest Exam date and time: 09/03/2022 9:10 PM Age: 57 years old Clinical indication: Pain; Right-sided; Additional info: Cp, R arm pain TECHNIQUE: Imaging protocol: Radiologic exam of the chest. Views: 1 view. COMPARISON: CR (CHEST, ) 01/03/2021 9:44 PM FINDINGS: Lungs: Stable fibrosis in the peripheral left lung and left base. Calcified granuloma in the medial left lung. The right lung is clear. Pleural spaces: Stable left lateral pleural thickening and scarring. No pneumothorax. Heart/Mediastinum: Unremarkable. No cardiomegaly. Bones/joints: Stable posterior left rib fractures. XR/XR chest 1V portable [id number] IMPRESSION: 1. 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 2. No acute findings.
--- NOTE | 2022-09-03 21:07 | XRR_ITS ---
PROCEDURE INFORMATION: Exam: XR Right Humerus Exam date and time: 09/03/2022 9:10 PM Age: 57 years old Clinical indication: Pain; Upper arm; Right; Additional info: Arm pain, no injury, 2 months TECHNIQUE: Imaging protocol: Radiologic exam of the Right humerus. Views: 2 or more views. COMPARISON: CR (CHEST, ) 01/03/2021 9:44 PM FINDINGS: Bones/joints: Normal. Soft tissues: Normal. XR/[place] [id number] IMPRESSION: No acute findings.
--- NOTE | 2022-09-03 21:07 | ECG_ITS ---
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 Measurements Intervals [place] Rate: 68 P: 69 AR: 131 QRS: 79 QRSD: 104 T: 54 QT: 426 QTc: 456 Interpretive Statements SINUS RHYTHM INCOMPLETE RIGHT BUNDLE BRANCH BLOCK [90+ ms QRS DURATION, TERMINAL R IN V1/V2, 40+ ms S IN I/aVL/V4/V5/V6] Compared to ECG 01/04/2021 04:09:46 Incomplete right bundle-branch block now present Ventricular premature complex(es) no longer present Electronically Signed On 09-04-2022 8:15:10 JEWEL HOLE ROUGH OPENER by Manny Oliveros M.D. [id number]
[2022-09-03] MEDS: fentaNYL 50 mcg/mL INJ 2mL IVP (21:32)
[2022-09-03] MEDS: orphenadrine 30 mg/mL Inj 2 mL 60 MG IM (21:32)
[2022-09-03 21:41] LABS: Basophils % 0.4 %; Eosinophils % 1.8 %; Hematocrit 38.2 % (42.0-52.0); Hemoglobin 12.4 g/dL (11.7-16.6); Lymphocytes % 42.2 %; Mean Corpuscular HGB Conc 32.5 g/dL (30.0-36.0); Mean Corpuscular Hemoglobin 30.5 pg (28.0-34.0); Mean Corpuscular Volume 93.9 fl (80-94); Mean Platelet Volume 10.5 fL (7.4-10.4); Monocytes # 0.2 10^3/uL (0.2-0.9); Monocytes % 9.8 %; Neutrophils # 1.03 10^3/uL (1.8-7.7); Neutrophils % 45.8 %; Nucleated Red Blood Cells % 0 %; Platelet Count 50 10^3/cmm (130-400); Red Blood Count 4.07 10^6/uL (4.1-5.3); Red Cell Distribution Width 15.6 % (12.1-15.1); White Blood Count 2.3 10^3/uL (4.0-10.0)
[2022-09-03 22:00] VITALS: BP 136/85; PULSE 67; RESP 18; O2SAT 97
[2022-09-03] MEDS: acetaminophen 1,000 MG/100 ML PIGGYBACK 400 MG IV (22:04)
[2022-09-03] MEDS: diazePAM 2 mg Tablet PO (22:04)
[2022-09-03] MEDS: ketorolac 30 mg/mL INJ 15 MG IVP (22:04)
[2022-09-03 22:11] LABS: Troponin(5th) Baseline 9 ng/L (0-15)
--- NOTE | 2022-09-03 22:12 | CTR_ITS ---
PROCEDURE INFORMATION: Exam: CT Head Without Contrast Exam date and time: 09/03/2022 10:20 PM Age: 57 years old Clinical indication: Weakness, extremity; Right; Patient HX: Worsening general weakness with neck pain that radiates into RT upper extremity. ; Additional info: RT arm pain and weakness, 2 months TECHNIQUE: Imaging protocol: Computed tomography of the head without contrast. Radiation optimization: All CT scans at this facility use at least one of these dose optimization techniques: automated exposure control; mA and/or kV adjustment per patient size (includes targeted exams where dose is matched to clinical indication); or iterative reconstruction. COMPARISON: CT head wo con* [id number] 12/26/2018 4:37 AM RADIATION DOSE METRICS: Total DLP (mGy-cm): 1008.88 FINDINGS: Brain: Mild cortical volume loss. Mild hypodensities in supratentorial periventricular and subcortical white matter, consistent with microangiopathy. No intracranial hemorrhage. Cerebral ventricles: No ventriculomegaly. Paranasal sinuses: Mucosal thickening in the anterior ethmoid air cells. The other sinuses are clear. No air-fluid level. Mastoid air cells: Visualized mastoid air cells are well aerated. Orbital cavities: Prior cataract surgery. Bones/joints: Unremarkable. No acute fracture. Soft tissues: Unremarkable. Vasculature: No hyperdense artery. CT/CT head wo con* [id number] IMPRESSION: No acute intracranial abnormality.
--- NOTE | 2022-09-03 22:12 | CTR_ITS ---
PROCEDURE INFORMATION: Exam: CT Chest With Contrast; Diagnostic Exam date and time: 09/03/2022 10:28 PM Age: 57 years old Clinical indication: Chest pressure; Patient HX: C/O chest pain; Additional info: R arm pain, sensory changes, cp TECHNIQUE: Imaging protocol: Diagnostic computed tomography of the chest with contrast. Radiation optimization: All CT scans at this facility use at least one of these dose optimization techniques: automated exposure control; mA and/or kV adjustment per patient size (includes targeted exams where dose is matched to clinical indication); or iterative reconstruction. Contrast material: OMNI 350; Contrast volume: 100 ml; Contrast route: INTRAVENOUS (IV); COMPARISON: 1. CT chest w con* [id number] 12/27/2020 8:20 AM 2. CR (CHEST, ) 09/03/2022 9:10 PM RADIATION DOSE METRICS: Total DLP (mGy-cm): 458.76 FINDINGS: Thyroid: Unchanged coarse calcifications right thyroid lobe. Trachea: Minimal tracheal debris, likely mucus. Lungs: See Pleural spaces finding. Pleural spaces: Left lung pleural and parenchymal fibrosis with associated calcifications has a stable CT appearance. Chronic deformities of the left-sided ribs are unchanged. Regions of presumed rounded atelectasis in the subpleural left upper lobe have an overall similar appearance. Calcified granuloma superior segment left lower lobe, unchanged. No new pulmonary consolidation or mass. Heart: Unremarkable. No cardiomegaly. No pericardial effusion. Lymph nodes: Unremarkable. No enlarged lymph nodes. Vasculature: Probable varices medial to the spleen. Liver: Cirrhotic morphology of the liver partially imaged. Gallbladder and bile ducts: Cholecystectomy changes are stable. Spleen: Splenomegaly with 18.5 cm spleen, similar to previous. Intraperitoneal space: There is minimal haziness of the mesentery adjacent to the celiac, possibly due to trace ascites, incompletely assessed. Bones/joints: See Pleural spaces finding. Soft tissues: Unremarkable. CT/CT chest w con* [id number] IMPRESSION: 1. Stable chest findings. 2. Stable chronic left pleural thickening with subjacent regions of rounded atelectasis. No acute pulmonary disease identified. 3. Stable splenomegaly with cirrhotic liver morphology and findings of portal hypertension.
--- NOTE | 2022-09-03 22:12 | CTR_ITS ---
PROCEDURE INFORMATION: Exam: CT Cervical Spine Without Contrast Exam date and time: 09/03/2022 10:22 PM Age: 57 years old Clinical indication: Patient HX: Worsening general weakness with neck pain that radiates into RT upper extremity. ; Additional info: R arm and R sided neck pain TECHNIQUE: Imaging protocol: Computed tomography of the cervical spine without contrast. Radiation optimization: All CT scans at this facility use at least one of these dose optimization techniques: automated exposure control; mA and/or kV adjustment per patient size (includes targeted exams where dose is matched to clinical indication); or iterative reconstruction. COMPARISON: CT cervical spin wo con* [id number] 12/26/2018 4:40 AM RADIATION DOSE METRICS: Total DLP (mGy-cm): 162.67 FINDINGS: Bones/joints: The vertebral body stature is intact. No fracture. Trace anterior degenerative subluxation of C4 on C5 and trace retrograde subluxation of C5 on C6. Progressive disc space narrowing and degenerative endplate changes at C5-C6. Progressive degenerative facets on the right at C4-C5, and on the left at C7-T1. Trace posterior disc bulge at C4-C5 without significant central canal stenosis. Mild posterior disc bulge with posterior endplate spurring at C5-C6 with mild central canal stenosis. No significant foraminal stenosis identified. Lungs: Lung apices are normal. Soft tissues: Unremarkable. CT/CT cervical spin wo con* [id number] IMPRESSION: 1. No fracture or acute finding. 2. Progressive degenerative changes at multiple levels as described.
[2022-09-03 22:21] LABS: Alanine Aminotransferase 14 U/L (0-41); Albumin Level 3.4 g/dL (3.5-5.2); Alkaline Phosphatase 71 U/L (40-130); Anion Gap 12.7 (5-19); Aspartate Amino Transferase 38 U/L (0-40); Blood Urea Nitrogen 7 mg/dL (6-20); Calcium 8.3 mg/dL (8.5-10.5); Carbon Dioxide 23 mmol/L (22-29); Chloride 112 mmol/L (98-107); Globulin 2.3 g/dL (1.3-4.6); Glomerular Filtration Rate 100.4 mL/min (90-130); Glucose 120 mg/dL (65-115); NT Pro B Type Natriuretic Pept 149 pg/mL (0-125); Osmolality Calculated 297 mOsm/kg (285-295); Potassium 3.7 mmol/L (3.5-5.1); Sodium 144 mmol/L (136-145); Total Bilirubin 1.7 mg/dL (0.15-1.2); Total Protein 5.7 g/dL (6.6-8.7)
[2022-09-03] MEDS: iohexol 350 mg/mL 500 mL Btl (per mL) IV (22:44)
[2022-09-03 23:16] VITALS: BP 133/79; PULSE 69; RESP 18; O2SAT 97
--- NOTE | 2022-09-03 23:26 | ECG_ITS ---
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 Measurements Intervals [place] Rate: 66 P: 63 HI: 139 QRS: 74 QRSD: 99 T: 52 QT: 418 QTc: 439 Interpretive Statements SINUS RHYTHM INCOMPLETE RIGHT BUNDLE BRANCH BLOCK [90+ ms QRS DURATION, TERMINAL R IN V1/V2, 40+ ms S IN I/aVL/V4/V5/V6] Compared to ECG 09/03/2022 22:08:34 No significant changes Electronically Signed On 09-04-2022 8:12:04 PANEL CUTTER by Manny Oliveros M.D. [id number]
[2022-09-03 23:43] LABS: Troponin 5 2HR 9.51 ng/L (0-15)
[2022-09-03 23:53] LABS: Troponin 5 2HR Delta 0.51 ABS# (0-10)
[2022-09-04] MEDS: cyclobenzaprine 10 mg Tablet PO (00:08)
[2022-09-04] MEDS: HYDROmorphone 1 mg/mL INJ 1 mL 0.5 MG IVP (00:09)
[2022-09-04 00:16] VITALS: BP 138/88; PULSE 66; RESP 18; O2SAT 97
[2022-09-04 00:54] VITALS: BP 136/85; PULSE 65; RESP 18; O2SAT 97
--- NOTE | 2022-09-04 09:22 | DCPLANNER ---
Addendum entered by Yandy Rizzo 09/27/22 13:15: Patient had a follow up appointment scheduled with ortho - patient did attend appointment. Addendum entered by Yandy Rizzo 09/05/22 12:43: Patient has a follow up appointment scheduled for August at 1:[address] Austin at ortho. Clinic will call patient with appointment information. Original Note: resolution manager had message to schedule a follow up appointment for patient with ortho. resolution manager sent patients information to the front office staff at ortho. Patients information will be printed and reviewed. Clinic will call patient with appointment information.
== END 2022-09-04 00:56 | disposition home or self-care (01) ==
PROVIDERS: Emergency Provider Emergency Medicine; PCP Nurse Practitioner Family
DX: R20.2 Paresthesia of skin (principal); M79.601 Pain in right arm; D72.819 Decreased white blood cell count, unspecified; D69.6 Thrombocytopenia, unspecified; R17 Unspecified jaundice; K74.60 Unspecified cirrhosis of liver; M50.30 Other cervical disc degeneration, unspecified cervical region; M79.604 Pain in right leg
CPT/HCPCS: 70450; 71045; 71260; 72125; 73060; 80053; 83880; 84484; 85025; 86140; 93005; 96365; 96372; 96375; 99285; J0131; J1170; J1885; J2360; J3010; Q9967

== ENCOUNTER → 2022-09-12 13:08 | Outpatient (BNVA) | payer MEDICARE, SELFPAY | PROVIDERS: PCP Nurse Practitioner Family; Referring Provider Emergency Medicine; Visit Provider Orthopaedic Surgery | DX: M47.812 Spondylosis without myelopathy or radiculopathy, cervical region (principal) | CPT/HCPCS: 72050; 99204 ==

== ENCOUNTER 2022-09-26 11:03 | Outpatient (CLI) | payer MEDICARE, SELFPAY ==
--- NOTE | 2022-09-26 | MR_ITS ---
WS: [id number] MRI CERVICAL SPINE NONCONTRAST TECHNIQUE: Sagittal T1, T2 and STIR imaging. Axial T2, gradient, and fiesta imaging. CLINICAL INFORMATION: DEGENERATIVE DISCS COMPARISON: CT cervical September 03, 2022 FINDINGS: Straightening of the normal cervical lordosis. Cord signal is normal. Fluid in the RIGHT C4-C5 facet with periarticular edema compatible with synovitis C2-C3: Normal. C3-C4: Disc osteophyte complex with endplate ridging. Mild facet arthropathy. Mild RIGHT greater than LEFT bony foraminal narrowing. Tiny shallow central protrusion with slight contact of the cervical c ord. Mild central canal stenosis. C4-C5: Tiny central disc osteophyte protrusion. Slight indentation on the cervical cord with moderate central canal stenosis. Mild facet arthropathy. RIGHT facet effusion with synovitis and a small amou nt of periarticular edema. Mild RIGHT greater than LEFT bony foraminal narrowing. C5-C6: Disc osteophyte complex with indentation on cervical cord. Moderate central canal stenosis. Mo derate LEFT greater than RIGHT bony foraminal narrowing. Mild facet arthropathy. C6-C7: Disc osteophyte complex with endplate ridging. Spinal canal is patent. Mild LEFT greater than RIGHT bony foraminal narrowing. C7-T1: Normal. Visualized brain stem structures: Normal. Prevertebral soft tissues: Normal. MR/MR cervical spin wo con* [id number] IMPRESSION: 1. Straightening of the normal cervical lordosis. Cord signal is normal. 2. Small disc osteophyte protrusions with mild central canal stenosis C3-C4. M oderate central canal stenosis C4-C5 and C5-C6 with slight indentation on cervi khushi cord. Indentation on the RIGHT ventral cervical cord at C4-C5. 3. Mild to moderate bony foraminal narrowing worse at RIGHT C4-C5, moderate LE FT C5-C6, and mild LEFT C6-C7.
== END 2022-09-26 11:04 | disposition home or self-care (01) ==
LOC: RAD 11:05
PROVIDERS: PCP Nurse Practitioner Family; Visit Provider Anesthesiology Pain Medicine
DX: M54.2 Cervicalgia (principal); M25.78 Osteophyte, vertebrae; M48.02 Spinal stenosis, cervical region
CPT/HCPCS: 72141

== ENCOUNTER → 2022-10-03 13:24 | Outpatient (BNVA) | payer MEDICARE, SELFPAY | PROVIDERS: PCP Nurse Practitioner Family; Visit Provider Orthopaedic Surgery | DX: M47.812 Spondylosis without myelopathy or radiculopathy, cervical region (principal) | CPT/HCPCS: 99214 ==

== ENCOUNTER → 2022-11-18 10:39 | Outpatient (BNVA) | payer MEDICARE, SELFPAY | PROVIDERS: PCP Nurse Practitioner Family; Referring Provider Orthopaedic Surgery; Visit Provider Anesthesiology Pain Medicine | DX: M54.2 Cervicalgia (principal); M79.601 Pain in right arm; M79.602 Pain in left arm | CPT/HCPCS: 99204 ==

== ENCOUNTER → 2022-11-27 13:30 | Outpatient (BNVA) | payer MEDICARE, SELFPAY | PROVIDERS: PCP Nurse Practitioner Family; Visit Provider Anesthesiology Pain Medicine | DX: M47.816 Spondylosis without myelopathy or radiculopathy, lumbar region (principal); M47.812 Spondylosis without myelopathy or radiculopathy, cervical region | CPT/HCPCS: 64490; J1030; J3490 ==

== ENCOUNTER → 2022-12-11 10:56 | Outpatient (BNVA) | payer MEDICARE, SELFPAY | PROVIDERS: PCP Nurse Practitioner Family; Visit Provider Anesthesiology Pain Medicine | DX: M48.02 Spinal stenosis, cervical region (principal); M54.2 Cervicalgia | CPT/HCPCS: 99214 ==

== ENCOUNTER → 2023-02-04 09:55 | Outpatient (BNVA) | payer MEDICARE, SELFPAY | PROVIDERS: PCP Nurse Practitioner Family; Visit Provider Psychiatry & Neurology Neurology | DX: R42 Dizziness and giddiness (principal) | CPT/HCPCS: 36415; 83735 ==

== ENCOUNTER → 2023-02-04 09:55 | Outpatient (BNVA) | payer MEDICARE, SELFPAY | PROVIDERS: PCP Nurse Practitioner Family; Visit Provider Psychiatry & Neurology Neurology | DX: R42 Dizziness and giddiness; I65.23 Occlusion and stenosis of bilateral carotid arteries; F10.11 Alcohol abuse, in remission | CPT/HCPCS: 36415; 83735; 99203 ==

== ENCOUNTER 2023-02-19 08:04 | Outpatient (CLI) | payer MEDICARE, SELFPAY ==
--- NOTE | 2023-02-19 08:15 | USCV_ITS ---
Alexandr Moulton Age: 57 Gender: M : 1965 Exam Date: 02/19/2023 08:24 Ordering Phys: Huang Oliva MD Technologist: CT Exam [place] [facility] [place] Indication: dizziness Risk Factors: Previous Vascular Surgery: Right Brachial BP: / Left Brachial BP: / Right Left Velocity (cm/s) Spectral Plaque Velocity (cm/s) Spectral Plaque Syst/Diast Broadening Syst/Diast Broadening 106.90/26.50 Prox CCA 94.70 / 28.10 107.50/26.90 Mid CCA 85.70 / 28.00 77.00/ 26.00 Distal CCA 87.30 / 24.90 62.10/ 19.00 Prox ICA 56.00 / 18.40 70.90/ 28.00 Mid ICA 75.20 / 24.10 95.90/ 36.40 Distal ICA 65.80 / 19.10 87.80 ECA 83.40 0.89 ICA/CCA 0.79 Antegrade Vertebral Antegrade 59.50/ 17.60 cm/s 52.10/ 17.10 cm/s Tri Subclavian Tri 99.20 158.5 0 CONCLUSIONS Right ICA stenosis <50%. Moderate atheromatous plaque right carotid bulb/ICA. Left ICA stenosis <50%. Moderate atheromatous plaque left carotid bulb/ICA. Normal antegrade Doppler flow noted in the right vertebral artery. Normal antegrade Doppler flow noted in the left vertebral artery. Ray Rhodes MD (Electronically Signed) Final Date: 19 February 2023 10:45 S
--- NOTE | 2023-02-19 08:45 | USCV_ITS ---
Alexandr Moulton Age: 57 Gender: M : 1965 Exam Date: 02/19/2023 08:42 Ordering Phys: Huang Oliva MD Technologist: CT Exam Location: [facility] – [place]_ Indication: DIZZINESS,GIDDINESS BP: 130 / 68 HR: 69 Rhythm: Sinus Technical Quality: Adequate MEASUREMENTS (Male / Female) Normal Values 2D ECHO LV Diastolic Diameter PLAX 4.3 cm 4.2 - 5.9 / 3.9 - 5.3 cm LV Systolic Diameter PLAX 2.9 cm LV Chamber Size 4.7 cm IVS Diastolic Thickness 1.1 cm 0.6 - 1.0 / 0.6 - 0.9 cm IVS Systolic Thickness 1.8 cm LVPW Diastolic Thickness 1.1 cm 0.6 - 1.0 / 0.6 - 0.9 cm LVPW Systolic Thickness 1.3 cm LVOT Diameter 2.1 cm LV Ejection Fraction 2D Teich 60.8 % LV Ejection Fraction MOD 2C 57.8 % LV Ejection Fraction 2C AL 58.6 % LA Diameter 4.4 cm LA Width 3.7 cm LA Height 6.1 cm RA Width 4.4 cm RA Height 5.7 cm Aorta at Sinotubular Diameter 2.3 cm IVC Diameter 1.2 cm M-MODE Aortic Annulus Diameter 2.9 cm LA Ao Ratio MM 1.5 MV E Point Septal Separation 0.7 cm DOPPLER AV Peak Velocity 155.0 cm/s LVOT Peak Velocity 148.0 cm/s AV Area Cont Eq vti 3.1 cm squared AV Area Cont Eq pk 3.3 cm squared MV Peak Velocity 120.0 cm/s MV Area PHT 4.6 cm squared Mitral E to A Ratio 1.3 MV E' Velocity 61.0 cm/s Mitral E to MV E' Ratio 10.9 Mitral E to LV E' Lateral Ratio 10.1 Mitral E to LV E' Septal Ratio 11.9 TR Peak Velocity 117.3 cm/s TR Peak Gradient 5.5 mmHg TV Peak E Velocity 97.0 cm/s Right Atrial Pressure 3.0 mmHg Pulmonary Artery Systolic Pressu 8.5 mmHg PV Peak Velocity 126.0 cm/s FINDINGS Left Ventricle Normal left ventricular size, systolic function and wall thickness, with no regional wall motion abnormalities. Left ventricular ejection fraction is estimated at 65 %. Normal diastolic function. Right Ventricle Normal right ventricular size and systolic function. Right ventricular systolic pressure 8.5 mmHg. Right Atrium Normal right atrial size. Left Atrium Normal left atrial size. Mitral Valve Structurally normal mitral valve. Mild mitral annular calcification. No mitral valve stenosis. No mitral valve regurgitation. Aortic Valve Structurally normal trileaflet aortic valve. No aortic valve stenosis. No aortic valve regurgitation. Tricuspid Valve Structurally normal tricuspid valve. No tricuspid valve stenosis. Trace tricuspid valve regurgitation. Pulmonic Valve Structurally normal pulmonic valve. No pulmonary valve stenosis. Trace pulmonary valve regurgitation. Pericardium No pericardial effusion. Aorta Normal size aortic root and proximal ascending aorta. IVC Normal IVC dimension with >50% respiratory change of the inferior vena cava. CONCLUSIONS 1. Normal left ventricular size, systolic function and wall thickness, with no regional wall motion abnormalities. Left ventricular ejection fraction is estimated at 65 %. Normal diastolic function. 2. Normal right ventricular size and systolic function. 3. No change when compared to study dated 05/09/2019. Blanca Marcus MD (Electronically Signed) Final Date: 24 February 2023 16:51 S
--- NOTE | 2023-02-19 09:30 | MR_ITS ---
WS: [id number] MRI HEAD WITHOUT CONTRAST TECHNIQUE: Sagittal T1, T2 axial, T2 axial FLAIR, axial and coronal T1 images, axial susceptibility w eighted imaging, axial diffusion weighted images, and coronal T2 images were obtained. CLINICAL INFORMATION: R42 - Dizziness and giddiness COMPARISON: CT September 03, 2022 FINDINGS: No evidence of restricted diffusion to suggest acute ischemia. Ventricular system and basal cisterns are patent. Mild supratentorial white matter changes likely due to small vessel changes in patient t his age. Normal posterior fossa. Normal vascular flow voids at the skull base. No extra-axial fluid c ollections. No evidence of mass or mass effect. Mild mucosal thickening in the paranasal sinuses and LEFT sphenoid sinus. Mild mucosal thickening in the mastoid tips bilaterally. Normal posterior nasoph arynx. No hemosiderin on susceptibly weighted images. Normal optic chiasm and pituitary infundibulum. Tempor al lobes and hippocampal formations are normal in appearance. MR/MR head wo con* [id number] IMPRESSION: 1. No evidence of restricted diffusion to suggest acute ischemia. 2. Mild small vessel changes. No significant parenchymal volume loss. 3. Mild mucosal thickening in the paranasal sinuses and LEFT sphenoid sinus. T race mucosal thickening in the mastoid air cells. 4. No hemosiderin on the susceptibly weighted images. 5. No other suspicious findings.
== END 2023-02-19 08:05 | disposition home or self-care (01) ==
PROVIDERS: PCP Nurse Practitioner Family; Visit Provider Psychiatry & Neurology Neurology
DX: R42 Dizziness and giddiness (principal); I65.23 Occlusion and stenosis of bilateral carotid arteries; J34.3 Hypertrophy of nasal turbinates
CPT/HCPCS: 36415; 70551; 83735; 93306; 93880

== ENCOUNTER → 2023-03-18 14:27 | Outpatient (BNVA) | payer MEDICARE, SELFPAY | PROVIDERS: PCP Nurse Practitioner Family; Visit Provider Psychiatry & Neurology Neurology | DX: R27.0 Ataxia, unspecified (principal); I65.23 Occlusion and stenosis of bilateral carotid arteries; F10.11 Alcohol abuse, in remission; M47.892 Other spondylosis, cervical region | CPT/HCPCS: 99212 ==

== ENCOUNTER → 2023-11-20 11:21 | Outpatient (BNVA) | payer MEDICARE, SELFPAY | PROVIDERS: PCP Nurse Practitioner Family; Visit Provider Psychiatry & Neurology Neurology | DX: R27.0 Ataxia, unspecified (principal); I65.23 Occlusion and stenosis of bilateral carotid arteries | CPT/HCPCS: 99212 ==

== ENCOUNTER 2024-08-06 15:03 | Outpatient (CLI) | payer MEDICARE, SELFPAY ==
--- NOTE | 2024-08-06 15:17 | XR_ITS ---
WS: [id number] Exam: [place] [id number] Date/Time of Exam: 08/06/2024 3:30 PM Reason For Exam: PAIN IN RIGHT SHOULDER No acute fracture. Degenerative change of the AC joint and glenohumeral joint. XR/[place] [id number] IMPRESSION: 1. No acute fracture.
--- NOTE | 2024-08-06 15:17 | XR_ITS ---
WS: [id number] Exam: XR shoulder RT min 2V* [id number] Date/Time of Exam: 08/06/2024 3:30 PM Reason For Exam: PAIN IN RIGHT SHULDER No acute fracture or dislocation. Degenerative change of the AC joint and glenohumeral joint. Subcort ical cyst formation in the humeral head and greater tuberosity. Normal soft tissues. XR/XR shoulder RT min 2V* [id number] IMPRESSION: 1. Moderate degenerative change. No fracture.
== END 2024-08-06 15:04 | disposition home or self-care (01) ==
LOC: RAD 15:12
PROVIDERS: PCP Nurse Practitioner Family; Visit Provider Anesthesiology Pain Medicine
DX: M19.011 Primary osteoarthritis, right shoulder (principal); M85.411 Solitary bone cyst, right shoulder
CPT/HCPCS: 73000; 73030

== ENCOUNTER 2024-10-12 14:32 | Inpatient (IN) | payer MEDICARE, SELFPAY ==
[2024-10-12] VITALS (17 sets, daily range): BP systolic 128–174; BP diastolic 72–95; PULSE 106–134; RESP 17–39; TEMP 36.8–37.1; O2SAT 91–99; BMI 27.8; BMI 28.9
--- NOTE | 2024-10-12 15:34 | XRR_ITS ---
PROCEDURE INFORMATION: Exam: XR Chest Exam date and time: 10/12/2024 3:57 PM Age: 59 years old Clinical indication: Cough and dyspnea; Additional info: Dyspnea/cough TECHNIQUE: Imaging protocol: Radiologic exam of the chest. Views: 1 view. COMPARISON: CT chest w con* [id number] 09/03/2022 10:28 PM FINDINGS: Airway: Airways are patent. Lungs: Stable left lung pleural thickening and calcified pleural plaques. Large consolidation in the right upper lobe. Remainder of the lungs are clear. Pleural spaces: There is no evidence of pneumothorax. No right pleural effusion. Heart/Mediastinum: No cardiomegaly. Bones/joints: There are healed left rib fractures. No acute skeletal abnormality or aggressive osseous lesion. Soft tissues: No acute soft tissue findings. XR/XR chest 1V portable [id number] IMPRESSION: 1. Stable left lung pleural thickening and calcified pleural plaques. The presence of a trace effusion is in the differential diagnosis. 2. Large consolidation in the right upper lobe. Most consistent with severe pneumonia.
--- NOTE | 2024-10-12 15:34 | ECG_ITS ---
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 Measurements Intervals [place] Rate: 122 P: 76 ND: 121 QRS: 78 QRSD: 103 T: 62 QT: 315 QTc: 450 Interpretive Statements SINUS TACHYCARDIA Compared to ECG 09/03/2022 23:26:43 Sinus rhythm no longer present Incomplete right bundle-branch block no longer present Electronically Signed On 10-14-2024 17:54:18 MANAGER LOGISTIC by Manny Oliveros M.D. [id number] [id number]
--- NOTE | 2024-10-12 15:42 | W.ED.GENADLT ---
HPI - General Adult General: Chief complaint: General Medical Stated complaint: weakness Time Seen by Provider: 10/12/24 15:13 History of Present Illness: 59-year-old male presents to the emergency room altered with shortness of breath. When I first came to see the patient he was in the room we hooked him up to an O2 sat monitor he is 86% on room air he is tachypneic and tachycardic. Turned him on oxygen at 4 L were able to get his sats into the mid 90s. He he is somewhat altered he will tell me he does not have any chest or abdominal pain he does tell me he has shortness of breath he admits to being irregular heavy drinker but alludes to having quit but cannot tell me exactly when. He denies any chest pain. He does state he has had a bit of a productive cough. Associated symptoms: Reports dyspnea; Deny chest pain Related Data Home Medications ?Medication ?Instructions ?Recorded ?Confirmed gabapentin 600 mg tablet 600 mg PO TID 09/12/22 10/12/24 hydrocodone 10 mg-acetaminophen 1 tab PO Q4H 10/12/24 10/12/24 325 mg tablet rosuvastatin 10 mg tablet 10 mg PO DAILY 10/12/24 10/12/24 Previous Rx's ?Medication ?Instructions ?Recorded thiamine HCl (vitamin B1) 100 mg 100 mg PO DAILY #90 tabs 02/04/23 tablet Allergies Allergy/AdvReac Type Severity Reaction Status Date / Time codeine Allergy Unknown Verified 10/12/24 14:42 Review of Systems Const: Denies: fever(s) or chills Card: Denies: chest pain Resp: Reports: dyspnea GI: Denies: abdominal pain Musc: Denies: neck pain or back pain PFS ED PFSH: Medical History (Updated 10/13/24 @ 07:26 by Callum Grayson DO) Cirrhosis of liver Surgical History No significant past surgical history Social History (Updated 10/12/24 @ 17:44 by Piotr Shin MD) Smoking and tobacco/nicotine status: current every day tobacco/nicotine user e-cigarettes Alcohol intake: current Substance/Drug Use: never Physical Exam Const: GENERAL APPEARANCE: cooperative ORIENTATION/CONSCIOUSNESS: Yes awake, Yes oriented to person, Yes oriented to place and Yes oriented to time HENMT: COMMON NORMALS: normocephalic, atraumatic and hearing grossly normal bilaterally HEAD & SCALP: normocephalic and atraumatic Resp: AUSCULTATION: rhonchi and wheezes Cardio: COMMON NORMALS: regular rhythm and No murmurs present (Cardio) RATE: tachycardic RHYTHM: regular rhythm GI: COMMON NORMALS: Soft to palpation and No hepatosplenomegaly present AUSCULTATION: Yes normoactive bowel sounds PALPATION: Yes Soft to palpation, No Tenderness to palpation present (GI), No Guarding due to palpation present (GI) and Yes No hepatosplenomegaly present Extremity: COMMON NORMALS: normal to inspection, capillary refill normal, no clubbing, cyanosis or edema, no calf tenderness and no pedal edema Neuro: SENSORIUM/ORIENTATION: Yes oriented to person, Yes oriented to place and Yes oriented to time Skin: COMMON NORMALS: no rashes or lesions noted GENERAL SKIN EXAM: no rashes or lesions noted Course Vital Signs: Vital signs: Vital Signs Temperature 98.6 F 10/13/24 04:00 Pulse Rate 102 H 10/13/24 06:00 Respiratory Rate 12 10/13/24 05:00 Blood Pressure 161/81 10/13/24 05:00 Pulse Oximetry 97 10/13/24 05:00 Oxygen Delivery Me thod Nasal Cannula 10/13/24 05:00 Oxygen Flow Rate 3 10/13/24 05:00 Fraction of Inspir ed Oxygen 35 10/12/24 23:33 MDM - General Adult Medical Decision Making Extensive pneumonia particular in the right upper lobe. CTA of the chest does not show any bronchial plugging or obstruction there is no evidence of PE although it is somewhat limited evaluation per the report due to motion artifact. Started on IV antibiotics discussed with hospitalist orders written for admission. Patient is requiring up to 4 L of oxygen at times Differential Diagnosis Pneumonia PE pulmonary mass Medical Records I reviewed the patient's medical records. Lab Data I reviewed the patient's lab results. 10/13/24 03:22 10/13/24 03:22 Radiology Impressions Chest X-Ray 10/12/24 15:34 IMPRESSION: 1. Stable left lung pleural thickening and calcified pleural plaques. The presence of a trace effusion is in the differential diagnosis. 2. Large consolidation in the right upper lobe. Most consistent with severe pneumonia. Chest CTA 10/12/24 16:16 IMPRESSION: 1. No evidence of acute pulmonary emboli, with the caveat that the segmental and subsegmental branches are slightly obscured by motion artifact. 2. Enlarged 1.5 cm subcarinal lymph node. Most probably reactive. 3. Cirrhosis and mildly decompensated portal hypertension. 4. Acute/chronic bronchitis or reactive airways disease. 5. Large consolidation with air bronchograms and small pneumatoceles in the right upper lobe. Consistent with severe right upper lobe pneumonia. 6. Patchy/ground-glass consolidations and multiple tree-in-bud nodules throughout the right middle lobe, right lower lobe, and left lung. Consistent with multifocal pneumonia. 7. Incidental findings as above. Gallbladder Ultrasound 10/12/24 16:40 IMPRESSION: Cirrhosis and mildly decompensated portal hypertension. Head CT 10/12/24 20:01 IMPRESSION: No acute intracranial abnormality. Laboratory Results WBC 18.99 10^3/uL (3.29-11.43) H 10/12/24 15:42 RBC 4.68 10^6/uL (3.85-5.65) 10/12/24 15:42 Hgb 9.90 g/dL (11.27-16.99) L 10/12/24 15:42 Hct 34.9 % (37-53) L 10/12/24 15:42 MCV 74.6 fl (82-101) L 10/12/24 15:42 MCH 21.2 pg (27-33) L 10/12/24 15:42 MCHC 28.4 g/dL (30-55) L 10/12/24 15:42 RDW 20.8 % (12.1-15.1) H 10/12/24 15:42 Plt Count 88 10^3/cmm (157-399) L 10/12/24 15:42 MPV 9.4 fL (7.4-10.4) 10/12/24 15:42 Neut % (Auto) 86.6 % 10/12/24 15:42 Lymph % (Auto) 4.7 % 10/12/24 15:42 Saunders % (Auto) 5.7 % 10/12/24 15:42 Eos % (Auto) 0.0 % 10/12/24 15:42 Baso % (Auto) 0.5 % 10/12/24 15:42 Neut # (Auto) 16.43 10^3/uL (1.8-7.7) H 10/12/24 15:42 Lymph # (Auto) 0.9 10^3/uL (0.8-4.8) 10/12/24 15:42 Saunders # (Auto) 1.1 10^3/uL (0.2-0.9) H 10/12/24 15:42 Eos # (Auto) 0.0 10^3/uL (0.0-0.8) 10/12/24 15:42 Baso # (Auto) 0.1 10^3/uL (0.0-0.1) 10/12/24 15:42 Nucleated RBC % (auto) 0.8 % 10/12/24 15:42 Nucleated RBCs # 0.2 /100WBC 10/12/24 15:42 PT 18.70 SECONDS (12.1-14.9) H 10/12/24 15:42 INR 1.46 (0.8-1.2) H 10/12/24 15:42 APTT 40.1 SECONDS (23.9-36.7) H 10/12/24 15:42 D-Dimer 2.97 ug/mLFEU (0-0.59) H 10/12/24 15:42 Specimen Type Arterial 10/12/24 15:33 Sample Site Radial, right 10/12/24 15:33 ABG pH 7.44 (7.35-7.45) 10/12/24 15:33 ABG pCO2 38.7 mmHg (35-45) 10/12/24 15:33 ABG pO2 54.7 mmHg (80.0-100.0) L 10/12/24 15:33 ABG PO2/FiO2 Ratio 260 10/12/24 15:33 ABG HCO3 26.1 mmol/L (22-26) H 10/12/24 15:33 ABG O2 Saturation 88.6 10/12/24 15:33 ABG Base Excess 1.9 mmol/L (-2.0-2.0) 10/12/24 15:33 Johnathon Test Pos 10/12/24 15:33 A-a O2 Gradient 6.3 mmHg (5-10) 10/12/24 15:33 Hematocrit 29.6 % (42-52) L 10/12/24 15:33 Hgb O2 Saturation 86.2 % (95-100) L 10/12/24 15:33 Carboxyhemoglobin 1.6 %THgb (0.4-20.1) 10/12/24 15:33 Methemoglobin 1.1 % (0.4-1.5) 10/12/24 15:33 Total Hemoglobin 9.7 g/dL (14-18) L 10/12/24 15:33 Sodium 142.0 mmol/L (131-143) 10/12/24 15:33 Potassium 3.4 mmol/L (3.5-5.0) L 10/12/24 15:33 Glucose 94.0 mg/dL (70-115) 10/12/24 15:33 Ionized Calcium 1.2 mmol/L (1.1-1.4) 10/12/24 15:33 O2 Delivery Device Room air 10/12/24 15:33 FiO2 21.0 % 10/12/24 15:33 Mica Builder ID [place] 10/12/24 15:33 Sodium 142 mmol/L (136-145) 10/12/24 15:42 Potassium 3.8 mmol/L (3.5-5.1) 10/12/24 15:42 Chloride 103 mmol/L (98-107) 10/12/24 15:42 Carbon Dioxide 25 mmol/L (22-29) 10/12/24 15:42 Anion Gap 17.8 (5-19) 10/12/24 15:42 BUN 24 mg/dL (6-20) H 10/12/24 15:42 Creatinine 1.2 mg/dL (0.7-1.2) 10/12/24 15:42 GFR Calculation 62.4 mL/min (90-130) L 10/12/24 15:42 Glucose 98 mg/dL (65-115) 10/12/24 15:42 Estimat Average Glucose 108 10/12/24 03:22 Hemoglobin A1c 5.4 % (4.0-6.0) 10/12/24 03:22 Calculated Osmolality 298 mOsm/kg (285-295) H 10/12/24 15:42 Lactic Acid 5.0 mmol/L (0.5-2.2) H* 10/12/24 15:42 Calcium 8.8 mg/dL (8.5-10.5) 10/12/24 15:42 Total Bilirubin 4.1 mg/dL (0.15-1.2) H 10/12/24 15:42 AST 85 U/L (0-40) H 10/12/24 15:42 ALT 18 U/L (0-41) 10/12/24 15:42 Alkaline Phosphatase 171 U/L (40-130) H 10/12/24 15:42 Ammonia 31 umol/L (16-60) 10/12/24 15:42 Troponin T Baseline 41 ng/L (0-15) H 10/12/24 15:42 Total Protein 6.1 g/dL (6.6-8.7) L 10/12/24 15:42 Albumin 2.5 g/dL (3.5-5.2) L 10/12/24 15:42 Globulin 3.6 g/dL (1.3-4.6) 10/12/24 15:42 Folate 4.8 ng/mL (4.5-32.2) 10/12/24 15:42 Ethyl Alcohol < 10 mg/dL (0-10) 10/12/24 15:42 Hepatitis A IgM Ab Non-reactive (Nonreactive) 10/12/24 15:42 Hep Bs Antigen Non-reactive (Nonreactive) 10/12/24 15:42 Hep B Core IgM Ab Non-reactive (Nonreactive) 10/12/24 15:42 Hepatitis C Antibody Reactive (Nonreactive) H 10/12/24 15:42 HIV 1&2 Ab & HIV 1 Ag Non-reactive (Non-Reactiv) 10/12/24 15:42 HIV 1&2 Antibody Non-reactive (Non-Reactiv) 10/12/24 15:42 Influenza A (PCR) Positive (Negative) 10/12/24 14:45 Influenza Type B (PCR) Negative (Negative) 10/12/24 14:45 RSV (PCR) Negative (Negative) 10/12/24 14:45 SARS-CoV-2 (PCR) Negative (Negative) 10/12/24 14:45 All radiology interpretation(s) finalized by discharge Discharge Plan Discharge Patient Disposition: Admitted As Inpatient Admit Provider: Piotr Shin Clinical Impression: Acute hypoxic respiratory failure, Pneumonia, Sepsis, Anemia, Cirrhosis of liver Condition: Stable Coding Level of Care Code ED Medical Education Coordinator for Morteza Mi
[2024-10-12 15:44] LABS: ABG PCO2 38.7 mmHg (35-45); ABG PH Result 7.44 (7.35-7.45); Alveolar-Arterial Oxygen Gradi 6.3 mmHg (5-10); Arterial Blood Gas Hematocrit 29.6 % (42-52); Base Excess ABG 1.9 mmol/L (-2.0-2.0); Blood Gas Allen Test Pos; Blood Gas Operator Identificat WALCI; Blood Gas Sample Site Radial, right; Blood Gas Sample Type Arterial; Carboxyhemoglobin 1.6 %THgb (0.4-20.1); HCO3 ABG 26.1 mmol/L (22-26); HGB O2 Sat 86.2 % (95-100); Ionized Calcium Level - ABG 1.2 mmol/L (1.1-1.4); Methemoglobin 1.1 % (0.4-1.5); Oxygen Device ROOM AIR; Oxygen Saturation ABG 88.6; PO2 ABG 54.7 mmHg (80.0-100.0); PO2 FiO2 Ratio Arterial Blood 260; Potassium Level - ABG 3.4 mmol/L (3.5-5.0); Total Hemoglobin 9.7 g/dL (14-18)
[2024-10-12] MEDS: ondansetron 2 mg/ML SDV 2 mL 4 MG IVP (15:52)
[2024-10-12] MEDS: ipratropium-albuterol 3 mL Neb INHALATION ×3 (16:05→23:30)
[2024-10-12 16:08] LABS: Basophils # 0.1 10^3/uL (0.0-0.1); Basophils % 0.5 %; Hematocrit 34.9 % (37-53); Lymphocytes # 0.9 10^3/uL (0.8-4.8); Lymphocytes % 4.7 %; Mean Corpuscular HGB Conc 28.4 g/dL (30-55); Mean Corpuscular Hemoglobin 21.2 pg (27-33); Mean Corpuscular Volume 74.6 fl (82-101); Mean Platelet Volume 9.4 fL (7.4-10.4); Monocytes # 1.1 10^3/uL (0.2-0.9); Monocytes % 5.7 %; Neutrophils # 16.43 10^3/uL (1.8-7.7); Neutrophils % 86.6 %; Nucleated Red Blood Cells # 0.2 /100WBC; Nucleated Red Blood Cells % 0.8 %; Platelet Count 88 10^3/cmm (157-399); Red Blood Count 4.68 10^6/uL (3.85-5.65); Red Cell Distribution Width 20.8 % (12.1-15.1); White Blood Count 18.99 10^3/uL (3.29-11.43)
--- NOTE | 2024-10-12 16:16 | CTR_ITS ---
PROCEDURE INFORMATION: Exam: CTA Chest With Contrast Exam date and time: 10/12/2024 4:30 PM Age: 59 years old Clinical indication: Dyspnea; Additional info: Hypoxia/tachycardia TECHNIQUE: Imaging protocol: Computed tomographic angiography of the chest with contrast. Exam focused on the arteries. 3D rendering (Not supervised by radiologist): MIP and/or 3D reconstructed images were created by the technologist. Radiation optimization: All CT scans at this facility use at least one of these dose optimization techniques: automated exposure control; mA and/or kV adjustment per patient size (includes targeted exams where dose is matched to clinical indication); or iterative reconstruction. Contrast material: OMNIPAQUE 350; Contrast volume: 73 ml; Contrast route: INTRAVENOUS (IV); COMPARISON: CT angio chest PE protcl [id number] 01/04/2021 2:47 AM RADIATION DOSE METRICS: Total DLP (mGy-cm): 420.21 FINDINGS: Limitations: Motion artifact does moderately limit the sensitivity of this examination. Pulmonary arteries: The pulmonary arteries are normal in course and caliber. No evidence of acute pulmonary emboli, with the caveat that the segmental and subsegmental branches are slightly obscured by motion artifact. Aorta: Aorta is normal in course and caliber. No acute pathology in the aorta. Veins: Perisplenic varices. Thyroid: Punctate calcifications in the right thyroid lobe, stable. Trachea: Airways are patent. Lungs: Stable diffuse left lung pleural thickening and volume loss with scattered calcified pleural plaques. Left lung calcified granuloma is benign. Bilateral bronchial wall thickening. Large consolidation with air bronchograms and small pneumatoceles in the right upper lobe. Patchy/ground-glass consolidations and multiple tree-in-bud nodules throughout the right middle lobe, right lower lobe, and left lung. Pleural spaces: There are no pleural effusions present. There is no evidence of pneumothorax. Heart: No cardiomegaly. Trace and likely physiologic pericardial effusion. No filling defects in the left atrial appendage. Coronary arteries: There is mild atherosclerotic calcification of the coronary arteries. Lymph nodes: Enlarged 1.5 cm subcarinal lymph node. No other adenopathy. Diaphragm: Small hiatal hernia. Liver: Liver has a nodular contour and there is relative hypertrophy of the caudate lobe, consistent with cirrhosis. Spleen: Partially seen severe splenomegaly. Intraperitoneal space: Trace upper abdominal ascites. Bones/joints: There are healed left rib fractures. Mild multilevel degenerative changes of the spine. No acute skeletal abnormality or aggressive osseous lesion. Soft tissues: No acute soft tissue findings. CT/CT angio chest PE protcl [id number] IMPRESSION: 1. No evidence of acute pulmonary emboli, with the caveat that the segmental and subsegmental branches are slightly obscured by motion artifact. 2. Enlarged 1.5 cm subcarinal lymph node. Most probably reactive. 3. Cirrhosis and mildly decompensated portal hypertension. 4. Acute/chronic bronchitis or reactive airways disease. 5. Large consolidation with air bronchograms and small pneumatoceles in the right upper lobe. Consistent with severe right upper lobe pneumonia. 6. Patchy/ground-glass consolidations and multiple tree-in-bud nodules throughout the right middle lobe, right lower lobe, and left lung. Consistent with multifocal pneumonia. 7. Incidental findings as above.
[2024-10-12 16:20] LABS: INR 1.46 (0.8-1.2)
[2024-10-12 16:21] LABS: Partial Thromboplastin Time 40.1 SECONDS (23.9-36.7)
[2024-10-12 16:23] LABS: D Dimer 2.97 ug/mLFEU (0-0.59)
[2024-10-12 16:30] LABS: Troponin(5th) Baseline 41 ng/L (0-15)
[2024-10-12 16:34] LABS: Ammonia 31 umol/L (16-60)
[2024-10-12 16:36] LABS: Alanine Aminotransferase 18 U/L (0-41); Albumin Level 2.5 g/dL (3.5-5.2); Alcohol Level < 10 mg/dL (0-10); Alkaline Phosphatase 171 U/L (40-130); Anion Gap 17.8 (5-19); Aspartate Amino Transferase 85 U/L (0-40); Blood Urea Nitrogen 24 mg/dL (6-20); Calcium 8.8 mg/dL (8.5-10.5); Carbon Dioxide 25 mmol/L (22-29); Chloride 103 mmol/L (98-107); Globulin 3.6 g/dL (1.3-4.6); Glomerular Filtration Rate 62.4 mL/min (90-130); Glucose 98 mg/dL (65-115); Osmolality Calculated 298 mOsm/kg (285-295); Potassium 3.8 mmol/L (3.5-5.1); Sodium 142 mmol/L (136-145); Total Bilirubin 4.1 mg/dL (0.15-1.2); Total Protein 6.1 g/dL (6.6-8.7)
[2024-10-12 16:38] LABS: Slide Review Slide Review Perform
[2024-10-12] MEDS: SODIUM CHLORIDE 0.9% 2422.17 ML IV (16:40)
--- NOTE | 2024-10-12 16:40 | USR_ITS ---
PROCEDURE INFORMATION: Exam: US Abdomen, Limited; Right Upper Quadrant Exam date and time: 10/12/2024 4:49 PM Age: 59 years old Clinical indication: Abnormal findings; Abnormal lab test; Abnormal function test of other organs/systems; Additional info: Elevated t bili TECHNIQUE: Imaging protocol: Real time ultrasound of the abdomen with image documentation. Limited exam focused on the right upper quadrant. COMPARISON: US abdomen limited [id number] 01/11/2021 8:15 AM FINDINGS: Limitations: Limited examination due to artifact from bowel gas. Liver: Liver has a nodular contour and there is relative hypertrophy of the caudate lobe, consistent with cirrhosis. Liver measures 10 cm. Gallbladder: Cholecystectomy. Biliary ducts: CBD is obscured by overlying bowel gas. Pancreas: Pancreas is obscured by bowel gas. Right kidney: Normal. No mass. No hydronephrosis. Right kidney measures 11.4 cm. Portal venous: Main portal vein is obscured by overlying bowel gas. Intraperitoneal space: Low volume upper abdominal ascites. US/US gall bladder [id number] IMPRESSION: Cirrhosis and mildly decompensated portal hypertension.
[2024-10-12] MEDS: iohexol 350 mg/mL 500 mL Btl (per mL) IV (16:41)
[2024-10-12 16:44] LABS: Influenza A POSITIVE (Negative); Influenza B NEGATIVE (Negative); Respiratory Syncytial Virus Ce NEGATIVE (Negative); SARS-CoV-2 PCR NEGATIVE (Negative)
[2024-10-12] MEDS: piperacillin-tazobactam 3.375 GM in sodium chloride 0.9% (plus) 50 ML IV (16:49)
[2024-10-12] MEDS: VANCOMYCIN ADD-Vantage 1,000 MG in 0.9% NaCl ADD-Vantage 250 ML 250 MG IV ×2 (16:50→21:48)
[2024-10-12 17:33] LABS: Bilirubin Urine 1+ (Negative); Blood Urine 2+ (Negative); Glucose Urine UA Negative (Normal); Ketones Urine Negative (Negative); Leukocyte Esterase Urine Negative (Negative); Nitrate Urine Negative (Negative); Protein Urine 2+ (Negative); Urine Appearance Clear (CLEAR); Urine Color Dark Yellow (Yellow)
--- NOTE | 2024-10-12 17:34 | ECG_ITS ---
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
--- NOTE | 2024-10-12 17:34 | P.HP_ITS ---
Providers/Chief Complaint 2 Admitting Physician: Piotr Shin MD Primary Care Provider: Stephanie Baird Chief Complaint: weakness History of Present Illness Alexandr Moulton is a 59 year old male history of alcoholism, history of pancytopenia, history of liver cirrhosis, splenomegaly, history of pulmonary nodules, history of small left pleural effusion/thickening, hypertension, history of cervical spondylosis, history of smoking, history of bilateral carotid artery stenosis, who presents to [facility] due to shortness of breath, cough, altered mental status. Currently patient is alert to person, to place, not to time he can follow commands but has episodes of confusion, altered mentation, tries to take off his oxygen,. Patient reports shortness of breath, trouble catching his breath, does report bloody cough, no falls, no injuries, does report alcoholism, but does not remember the last time he drank alcohol, does report smoking, does report fatigue, malaise does report fevers. He tells me he lives in [place] with his . His is also sick. On arrival to the emergency room, he was 86% on room air, tachypneic tachycardic placed on 4 L and is now on mid 90s. During my examination he is tachycardic, heart rates into the 130s sinus tachycardia tachypneic respiratory 20-30, mild respiratory distress nasal flaring intercostal retractions suprasternal retractions, nasal flaring, actively coughing, actively wheezing. Workup in the emergency room showed evidence of sepsis white blood cell count 18.99 lactic acid, 5.0, evidence of liver failure, bili 4.1, alk phos 171, AST 85, albumin 2.5, INR 1.46, hemoglobin 9.9, MCV 74.6, platelet count 88, influenza A positive, CT of the chest showing right upper lobe consolidation, right middle and lower lobe and left lung patchy groundglass consolidation multiple tree-in-bud nodules concerning for multifocal pneumonia, severe right upper lobe pneumonia. Patient denies a history of fungal infection and is from [facility] originally. 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 Cunningham for his anemia, thrombocytopenia pulmonary nodules but did not like Dr. Cunningham so stopped following up with him, he has never seen a manager military, she tells me that about a week ago, Alexandr had a GI bug, after that resolved in 24 hours, he started developing sinus symptoms, congestion, cough, shortness of breath which progressed, she also started getting sick, yesterday evening Alexandr had significant episodes of shortness of breath, episodes of confusion, which progressively worsened, she reports that he has not consumed any alcohol for the last 4 years, he does vape, no drug use Review of Systems 2 Const: Reports: fever(s), chills, fatigue and malaise Card: Denies: chest pain Resp: Reports: dyspnea, productive cough and non-productive cough GI: Reports: coffee ground emesis; Denies: abdominal pain, nausea or vomiting Medications/Allergies Home Medications ?Medication ?Instructions ?Recorded ?Confirmed ?Last Taken ?Type gabapentin 600 mg tablet 600 mg PO TID 09/12/2210/12 Unknown History thiamine HCl (vitamin B1) 100 mg 100 mg PO DAILY #90 t abs 02/04/23 10/12/24 Unknown Rx tablet hydrocodone 10 mg-acetaminophen 1 tab PO Q4H 10/12/24 10/12/24 Unknown History 325 mg tablet rosuvastatin 10 mg tablet 10 mg PO DAILY 10/12/2409/25 Unknown History Allergies Allergy/AdvReac Type Severity Reaction Status Date / Time codeine Allergy Unknown Verified 10/12/24 14:42 PFSH Acute 2 PFSH: Medical History (Updated 10/12/24 @ 18:02 by Piotr Shin MD) Cirrhosis of liver Surgical History No significant past surgical history Social History (Updated 10/12/24 @ 17:44 by Piotr Shin MD) Smoking and tobacco/nicotine status: current every day tobacco/nicotine user e- cigarettes Alcohol intake: current Substance/Drug Use: never Vitals/I&O/Wt Last Vital Signs Temp 98.3 F 10/12/24 14:37 Pulse 126 H 10/12/24 16:59 Resp 18 10/12/24 16:01 BP 164/95 10/12/24 16:59 Pulse Ox 92 10/12/24 16:59 O2 Del Method Nasal Cannula 10/12/24 16:59 O2 Flow Rate 2 10/12/24 16:59 10/12/24 10/12/24 10/12/24 06:59 14:59 22:59 Intake Total 50 / 50 Balance 50 / 50 Weight last 48 hrs Weight 80.739 kg Physical Exam 2 Const: COMMON NORMALS: no acute distress EXAM LIMITATIONS: altered mental status ORIENTATION/CONSCIOUSNESS: Yes awake, Yes oriented to person and Yes confused; not oriented to place and not oriented to time Eye: COMMON NORMALS: Equal, round and reactive pupils present Neck/C-Spine: COMMON NORMALS: full ROM and no lymphadenopathy Lymph: LYMPHATIC: no lymphadenopathy noted Resp: OTHER: Tachypnea, wheezing and crackles in all lung french, nasal flaring, intercostal retractions, suprasternal retractions, nasal flaring Cardio: COMMON NORMALS: regular rhythm, S1 normal heart sound present and S2 normal heart sound present RATE: regular rate RHYTHM: regular rhythm H EART SOUNDS: S1 normal heart sound present and S2 normal heart sound present GI: COMMON NORMALS: Normal to inspection, nondistended, normoactive bowel sounds present, Soft to palpation and non-tender : COMMON NORMALS: Yes no CVA tenderness Extremity: COMMON NORMALS: no pedal edema Neuro: OTHER: Can follow neurologic testing at times however easily is confused moves bilateral upper lower extremities, able to track, cranial nerves II to XII grossly intact Sepsis: Is patient septic: Yes Focused sepsis exam performed: Yes F ocused sepsis exam: cap refill greater than 2 seconds, no mottling Date exam was performed: 10/12/24 Time exam was performed: 17:55 Data 10/12/24 15:42 10/12/24 15:42 Micro: Microbiology 10/12/24 15:46 Blood Culture - Preliminary Blood SPECIMEN COLLECTED 10/12/24 15:42 Blood Culture - Preliminary Blood SPECIMEN COLLECTED A&P Assessment and plan (1) Acute hypoxic respiratory failure: (2) Pneumonia: (3) Atypical pneumonia: (4) Sepsis: (5) Anemia: (6) Thrombocytopenia: (7) UTI (urinary tract infection): (8) Acute encephalopathy: (9) Lactic acidosis: (10) Elevated INR: (11) Cirrhosis of liver: Plan Acute hypoxic respiratory failure -Multifactorial -Likely from underlying pneumonia -With influenza A -Concerns for COPD exacerbation although no formal diagnosis Plan -Monitor respiratory status closely in ICU -Vancomycin -Zosyn -Tamiflu -Solu-Medrol -DuoNeb -Budesonide -Will consider BiPAP based on clinical progress Sepsis -Sepsis features met given evidence of acute respiratory failure, acute respiratory distress, lactic acid 5.0, white blood cell count 18,000 Acute encephalopathy -Toxic and metabolic -Likely from sepsis, pneumonia, influenza -CT head -Neurochecks -NIH -Aspiration precautions Concerns for atypical infection -CT of the chest shows 2. Enlarged 1.5 cm subcarinal lymph node. Most probably reactive. 5. Large consolidation with air bronchograms and small pneumatoceles in the right upper lobe. Consistent with severe right upper lobe pneumonia. 6. Patchy/ground-glass consolidations and multiple tree-in-bud nodules throughout the right middle lobe, right lower lobe, and left lung. Consistent with multifocal pneumonia. -Is from [facility], used to work in the [employer] field -Has a history of pulmonary nodules, etiology unclear, used to follow-up with Dr. Cunningham -Reported hemoptysis -No reported consumption of raw milk Plan -Do workup for atypical infection -Fungal studies -LDH, beta 1 3 glucan -Aspergillosis -QuantiFERON gold -3 AFB smears -Sputum studies Acute on chronic liver failure -History of liver cirrhosis -Gallbladder ultrasound shows cirrhosis, mildly decompensated portal hypertension - reports no alcoholism in the last 4 years -CT scan shows evidence of liver cirrhosis, portal hypertension, splenomegaly -Albumin 2.5 -Creatinine 1.2 -T. bili 4.1, -AST 85 -Alk phos 171 -Ammonia 31 acute hep -hiv Acute anemia -Low MCV -Evidence of iron deficiency anemia -Check iron, ferritin -Hemoccult stool Acute on chronic thrombocytopenia -Likely sec to liver failure -Monitor Lactic acidosis -Likely from sepsis NSTEMI -Serial EKGs, serial troponins, telemetry monitoring Urinary tract infection, antibiotics as above Elevated INR, likely from liver failure Full code Lovenox for DVT prophylaxis PDMP PDMP Reviewed: Not Reviewed Attestations 2 Medical Necessity Statement*: Patient requires hospitalization, inpatient, greater than 2 midnights, for sepsis, pneumonia, influenza A, acute hypoxic respiratory failure, liver cirrhosis, liver failure, UTI, NSTEMI, lactic acidosis Diagnoses Acute hypoxic respiratory failure J96.01 Pneumonia J18.9 Atypical pneumonia J18.9 Sepsis A41.9 Anemia D64.9 Thrombocytopenia D69.6 UTI (urinary tract infection) N39.0 Acute encephalopathy G93.40 Lactic acidosis E87.20 Elevated INR R79.1 Cirrhosis of liver K74.60
[2024-10-12 17:38] LABS: Add Urine Microscopic? YES; Specific Gravity, Urine 1.057 (1.005-1.030); UA Manual Slide Review YES; UA Slide Review UA Slide Review Perf
[2024-10-12 17:43] LABS: RBC Urine 25-40 /hpf (0-2); Squamous Epithelial Cell Urine 0-4 /hpf (0-5); WBC Urine 0-4 /hpf (0-5)
[2024-10-12 17:45] LABS: Add Urine Culture? Yes; Bacteria Urine TRACE /hpf; Hyaline Casts Urine 0-4 /lpf; Mucus Urine TRACE /hpf; Oval Fat Bodies Urine 2+ /hpf
[2024-10-12 17:58] LABS: Reflex Lactate Order REFLEX LACTIC ORDERD
[2024-10-12 18:09] LABS: C Reactive Protein 165.8 mg/L (0.0-4.9); Lactate Dehydrogenase 400 U/L (135-225)
[2024-10-12 18:11] LABS: Troponin 5 2HR 40.33 ng/L (0-15)
[2024-10-12 18:15] LABS: Procalcitonin 1.33 ng/mL (0-0.5)
[2024-10-12 18:16] LABS: Troponin 5 2HR Delta -0.67 ABS# (0-10)
[2024-10-12 18:51] LABS: HIV 1 & 2 Antibody Non-Reactive (Non-Reactiv); HIV 1 & 2 Antigen Non-Reactive (Non-Reactiv)
[2024-10-12 19:11] LABS: Erythrocyte Sedimentation Rate 13 mm/hr (0-10)
[2024-10-12 19:32] LABS: Lactic Acid level (Lactate) 3.4 mmol/L (0.5-2.2)
--- NOTE | 2024-10-12 20:01 | CTR_ITS ---
PROCEDURE INFORMATION: Exam: CT Head Without Contrast Exam date and time: 10/12/2024 10:05 PM Age: 59 years old Clinical indication: Altered mental status/memory loss; Additional info: AMS TECHNIQUE: Imaging protocol: Computed tomography of the head without contrast. Radiation optimization: All CT scans at this facility use at least one of these dose optimization techniques: automated exposure control; mA and/or kV adjustment per patient size (includes targeted exams where dose is matched to clinical indication); or iterative reconstruction. COMPARISON: MR head wo con* [id number] 02/19/2023 9:53 AM RADIATION DOSE METRICS: Total DLP (mGy-cm): 1033.18 FINDINGS: Brain: Normal. No hemorrhage. Unremarkable white matter. No mass effect. Cerebral ventricles: No ventriculomegaly. Paranasal sinuses: Paranasal sinus opacifications. Mastoid air cells: Visualized mastoid air cells are well aerated. Bones: Unremarkable. No acute fracture. Soft tissues: Unremarkable. CT/CT head wo con* [id number] IMPRESSION: No acute intracranial abnormality.
[2024-10-12] MEDS: enoxaparin 40 mg/0.4 mL Syringe SUBCUT (20:12)
[2024-10-12] MEDS: methylPREDNISolone sod succ 125 mg/2 mL INJ IVP (20:12)
[2024-10-12] MEDS: sucralfate 1 gm/10 mL Oral Liq UDC PO (20:12)
[2024-10-12] MEDS: oseltamivir phosphate 75 mg Capsule PO (20:13)
[2024-10-12] MEDS: pantoprazole 40 mg SDV IVP (20:13)
[2024-10-12] MEDS: thiamine 100 mg/mL 2mL SDV IM (20:13)
[2024-10-12] MEDS: budesonide 0.5 mg/2 mL Neb 0.25 MG INHALATION (20:20)
--- NOTE | 2024-10-12 20:26 | PHA.VACGOAL ---
Vancomycin Goal - Goal Vancomycin Goal:: 15-20 mg/L Vancomycin Indication:: Pneumonia - Therapy Current therapy:: Pip/Tazo Day of therpy:: Day []of [] . Actual body weight (kg): 178 lb - Data Labs: WBC 18.99 10^3/uL (3.29-11.43) H 10/12/24 15:42 RBC 4.68 10^6/uL (3.85-5.65) 10/12/24 15:42 Hgb 9.90 g/dL (11.27-16.99) L 10/12/24 15:42 Hct 34.9 % (37-53) L 10/12/24 15:42 MCV 74.6 fl (82-101) L 10/12/24 15:42 MCH 21.2 pg (27-33) L 10/12/24 15:42 MCHC 28.4 g/dL (30-55) L 10/12/24 15:42 RDW 20.8 % (12.1-15.1) H 10/12/24 15:42 Sodium 142 mmol/L (136-145) 10/12/24 15:42 Potassium 3.8 mmol/L (3.5-5.1) 10/12/24 15:42 Chloride 103 mmol/L (98-107) 10/12/24 15:42 Carbon Dioxide 25 mmol/L (22-29) 10/12/24 15:42 Anion Gap 17.8 (5-19) 10/12/24 15:42 BUN 24 mg/dL (6-20) H 10/12/24 15:42 Creatinine 1.2 mg/dL (0.7-1.2) 10/12/24 15:42 GFR Calculation 62.4 mL/min (90-130) L 10/12/24 15:42 Treatment plan:: new consult Regimen:: 1000 MG IN ER; GIVE 1000MG AGAIN NOW 1000 MG Q12H
[2024-10-12] MEDS: morphine 4 mg/mL SDV 1 mL 2 MG IVP (20:38)
[2024-10-12 21:09] LABS: Hepatitis A Antibody IgM Non-Reactive (Nonreactive); Hepatitis B Core IgM Non-Reactive (Nonreactive); Hepatitis B Surface Antigen Non-Reactive (Nonreactive); Hepatitis C Virus Antibody Reactive (Nonreactive)
--- NOTE | 2024-10-12 22:39 | PC.NURSE ---
patient reports peripheral neuropathy to feet/lower legs
[2024-10-13] VITALS (40 sets, daily range): BP systolic 137–161; BP diastolic 69–85; PULSE 68–119; RESP 12–30; TEMP 36.6–37.1; O2SAT 94–100
[2024-10-13] MEDS: piperacillin-tazobactam 3.375 GM in sodium chloride 0.9% (plus) 50 ML IV ×3 (00:05→16:34)
[2024-10-13 00:38] LABS: Ferritin 166 ng/mL (30-400); Iron 17 ug/dL (59-158); Lipase 6 U/L (13-60); NT Pro B Type Natriuretic Pept 3621 pg/mL (0-125); Percent Saturation 7.9 % (20-50); Thyroid Stimulating Hormone 0.12 uIU/mL (0.27-4.20); Total Bilirubin 3.5 mg/dL (0.15-1.2); Total Iron Binding Capacity 213 mcg/dl; Unsaturated Iron Binding 196 ug/dL (112-347)
[2024-10-13 00:53] LABS: Vitamin B12 > 2000 pg/mL (232-1245)
[2024-10-13 00:58] LABS: Troponin 5 6HR 41.71 ng/L (0-15); Troponin 5 6HR Delta 0.71 ng/L (0-12)
[2024-10-13 01:27] LABS: Folate Level 4.8 ng/mL (4.5-32.2)
[2024-10-13 04:18] LABS: Basophils % 0.2 %; Hematocrit 29.2 % (37-53); Lymphocytes % 11.9 %; Mean Corpuscular HGB Conc 27.7 g/dL (30-55); Mean Corpuscular Hemoglobin 21.1 pg (27-33); Monocytes # 0.4 10^3/uL (0.2-0.9); Monocytes % 4.6 %; Neutrophils # 6.97 10^3/uL (1.8-7.7); Neutrophils % 80.6 %; Nucleated Red Blood Cells # 0.1 /100WBC; Nucleated Red Blood Cells % 1.2 %; Platelet Count 58 10^3/cmm (157-399); Red Blood Count 3.84 10^6/uL (3.85-5.65); Red Cell Distribution Width 20.6 % (12.1-15.1); White Blood Count 8.65 10^3/uL (3.29-11.43)
[2024-10-13 04:33] LABS: INR 1.52 (0.8-1.2)
[2024-10-13 04:37] LABS: Lactate (Lactic Acid level) 2.2 mmol/L (0.5-2.2)
[2024-10-13] MEDS: ipratropium-albuterol 3 mL Neb INHALATION ×6 (04:39→23:41)
[2024-10-13 04:41] LABS: Alanine Aminotransferase 16 U/L (0-41); Alkaline Phosphatase 113 U/L (40-130); Anion Gap 15.7 (5-19); Aspartate Amino Transferase 78 U/L (0-40); Blood Urea Nitrogen 24 mg/dL (6-20); C Reactive Protein 163.6 mg/L (0.0-4.9); Calcium 7.6 mg/dL (8.5-10.5); Carbon Dioxide 23 mmol/L (22-29); Chloride 107 mmol/L (98-107); Creatinine Clr Calc Pharmacy 84.3294; Glucose 104 mg/dL (65-115); Magnesium 2.6 mg/dL (1.7-2.3); Osmolality Calculated 298 mOsm/kg (285-295); Phosphorus 2.7 mg/dL (2.5-4.5); Potassium 3.7 mmol/L (3.5-5.1); Sodium 142 mmol/L (136-145); Total Bilirubin 3.9 mg/dL (0.15-1.2)
[2024-10-13] MEDS: VANCOMYCIN ADD-Vantage 1,000 MG in 0.9% NaCl ADD-Vantage 250 ML 250 MG IV ×2 (04:49→16:37)
[2024-10-13 04:51] LABS: NT Pro B Type Natriuretic Pept 5449 pg/mL (0-125); Procalcitonin 1.41 ng/mL (0-0.5)
[2024-10-13 04:55] LABS: Slide Review Slide Review Perform
[2024-10-13 07:16] LABS: Estmated Average Glucose 108; Hemoglobin A1C 5.4 % (4.0-6.0)
[2024-10-13] MEDS: budesonide 0.5 mg/2 mL Neb 0.25 MG INHALATION ×2 (07:44→19:59)
--- NOTE | 2024-10-13 08:14 | USCV_ITS ---
Alexandr Moulton Age: 59 Gender: M : 1965 Exam Date: 10/13/2024 09:23 Ordering Phys: Piotr Shin MD Technologist: Alonso Zapata [place] [facility] [place]: chf BP: 123 / 74 HR: 90 Rhythm: Sinus Technical Quality: Adequate MEASUREMENTS (Male / Female) Normal Values 2D ECHO LVOT Diameter 1.9 cm LV Ejection Fraction MOD 4C 59.1 % LV Ejection Fraction MOD 2C 75.8 % LV Ejection Fraction 2C AL 77.1 % LA Diameter 4.1 cm RA Systolic Volume 4C AL 34.1 ml RA Systolic Volume 4C MOD 33.7 ml Aorta at Sinotubular Diameter 3.1 cm M-MODE LA Ao Ratio MM 1.3 AV Cusp Separation MM 2.3 cm DOPPLER AV Peak Velocity 149.0 cm/s LVOT Peak Velocity 107.0 cm/s AV Area Cont Eq vti 2.3 cm squared AV Area Cont Eq pk 2.1 cm squared MV Peak Velocity 122.0 cm/s MV Area PHT 5.1 cm squared Mitral E to A Ratio 1.0 TR Peak Velocity 143.0 cm/s TR Peak Gradient 8.2 mmHg TV Peak E Velocity 91.0 cm/s PV Peak Velocity 107.0 cm/s FINDINGS Left Ventricle Normal left ventricular size, systolic function and wall thickness, with no regional wall motion abnormalities. Left ventricular ejection fraction is estimated at 60 %.Grade I/IV diastolic dysfunction (abnormal relaxation filling pattern), normal to mildly elevated filling pressures. Right Ventricle The right ventricle is normal in size and function. Right Atrium The right atrium is normal in size. Left Atrium The left atrium is normal in size. Mitral Valve Mildly thickened mitral valve. Moderate mitral annular calcification. No mitral valve stenosis. Mild mitral valve regurgitation. Aortic Valve Structurally normal aortic valve without significant sclerosis or stenosis. There is no aortic regurgitation. Tricuspid Valve Trace tricuspid valve regurgitation. Trace tricuspid valve regurgitation. Pulmonic Valve Structurally normal pulmonic valve without significant stenosis. There is no pulmonic regurgitation. Pericardium Normal pericardium without effusion. Aorta Normal ascending aorta dimension. IVC The inferior vena cava appears normal. CONCLUSIONS Normal left ventricular size, systolic function and wall thickness, with no regional wall motion abnormalities. Left ventricular ejection fraction is estimated at 60 %.Grade I/IV diastolic dysfunction (abnormal relaxation filling pattern), normal to mildly elevated filling pressures. Mildly thickened mitral valve. Moderate mitral annular calcification. No mitral valve stenosis. Mild mitral valve regurgitation. There is no pericardial effusion. Right atrial pressure is around 5 mm of mercury. Ernie Ritter MD (Electronically Signed) Final Date: 14 October 2024 14:08 S
[2024-10-13] MEDS: sucralfate 1 gm/10 mL Oral Liq UDC PO ×2 (09:26→19:45)
[2024-10-13] MEDS: oseltamivir phosphate 75 mg Capsule PO ×2 (09:26→18:11)
[2024-10-13] MEDS: thiamine 100 mg Tablet PO (09:26)
[2024-10-13] MEDS: acetaminophen 325 mg Tablet 650 MG PO (09:27)
[2024-10-13] MEDS: folic acid 1 mg Tablet PO (09:27)
[2024-10-13] MEDS: multivitamin therapeutic Tablet 1 TAB PO (09:27)
[2024-10-13] MEDS: atorvastatin 40 mg Tablet PO (09:27)
[2024-10-13] MEDS: pantoprazole 40 mg SDV IVP ×2 (09:31→19:45)
[2024-10-13] MEDS: methylPREDNISolone sod succ 40 mg/mL INJ IVP ×2 (09:31→16:34)
[2024-10-13 10:35] LABS: Bacillus cereus group Not Detected (NOT DETECT); Bacillus subtillis group Not Detected (NOT DETECT); Corynebacterium Not Detected (NOT DETECT); Cutibacterium acnes (P.acnes) Not Detected (NOT DETECT); Enterococcus Not Detected (NOT DETECT); Enterococcus faecalis Not Detected (NOT DETECT); Enterococcus faecium Not Detected (NOT DETECT); Lactobacillus species Not Detected (NOT DETECT); Listeria Not Detected (NOT DETECT); Listeria monocytogenes Not Detected (NOT DETECT); Micrococcus Not Detected (NOT DETECT); Pan Candida Not Detected (NOT DETECT); Pan Gram-Negative Not Detected (NOT DETECT); Staphylococcus epidermidis Not Detected (NOT DETECT); Staphylococcus lugdunensis Not Detected (NOT DETECT); Staphylococcus species Not Detected (NOT DETECT); Streptococcus agalactiae Not Detected (NOT DETECT); Streptococcus anginosus group Not Detected (NOT DETECT); Streptococcus pyogenes Not Detected (NOT DETECT); Streptococcus species Detected (NOT DETECT)
[2024-10-13 10:43] LABS: Streptococcus pneumoniae Detected (NOT DETECT)
--- NOTE | 2024-10-13 17:28 | P.PN_ITS ---
Subjective 2 Subjective: Patient was seen this morning, currently on BiPAP, can follow commands, does report shortness of breath, afebrile overnight, hypertensive, discussed with patient his respiratory failure, his pneumonia, our plans on doing a workup for atypical infections given his history of liver failure, his CT scan findings Vitals/I&O/Wt Last Vital Signs Temp 97.8 F 10/13/24 16:00 Pulse 94 10/13/24 15:11 Resp 21 H 10/13/24 15:01 BP 161/81 10/13/24 05:00 Pulse Ox 99 10/13/24 15:02 O2 Del Method BiPAP 10/13/24 15:01 O2 Flow Rate 3 10/13/24 05:00 FiO2 28 10/13/24 15:02 10/13/24 10/13/24 10/13/24 06:59 14:59 22:59 Intake Total 550 / 3272.17 50 / 50 Output Total 325 / 325 Balance 550 / 3272.17 -275 / -275 Weight last 48 hrs Weight 84.414 kg Weight 83.733 kg Weight 80.739 kg Physical Exam 2 Const: COMMON NORMALS: no acute distress ORIENTATION/CONSCIOUSNESS: Yes awake, Yes oriented to person and Yes oriented to place; not oriented to time Resp: COMMON NORMALS: normal respiratory effort, No retractions and No use of accessory muscles AUSCULTATION: crackles and wheezes OTHER: Tachypnea Cardio: COMMON NORMALS: regular rhythm, S1 normal heart sound present and S2 normal heart sound present RATE: tachycardic RHYTHM: regular rhythm H EART SOUNDS: S1 normal heart sound present and S2 normal heart sound present GI: COMMON NORMALS: Normal to inspection, nondistended, normoactive bowel sounds present and non-tender Extremity: COMMON NORMALS: no pedal edema Neuro: SENSORIUM/ORIENTATION: Yes oriented to person, Yes oriented to place and No oriented to time Psych: COMMON NORMALS: mental status grossly normal Urinary Catheter Management: Boyd: Cath Placed During This Visit: yes Urinary Catheter Date of Insertion: 10/13/24 Urinary Catheter Time of Insertion: 11:40 Data 10/13/24 03:22 10/13/24 03:22 Micro: Microbiology 10/12/24 15:46 Blood Culture - Preliminary Blood NEGATIVE TO DATE 10/12/24 06:05 Gram Stain - Final Sputum - Expectorated Sputum 10/12/24 15:42 Blood Culture - Preliminary Blood Streptococcus pneumoniae 10/12/24 17:26 Urine Culture - Preliminary Urine,Clean Catch A&P Assessment and plan (1) Acute hypoxic respiratory failure: (2) Pneumonia: (3) Atypical pneumonia: (4) Sepsis: (5) Anemia: (6) Thrombocytopenia: (7) UTI (urinary tract infection): (8) Acute encephalopathy: (9) Lactic acidosis: (10) Elevated INR: (11) Cirrhosis of liver: Plan Acute hypoxic respiratory failure -Multifactorial -Likely from underlying pneumonia -With influenza A -Concerns for COPD exacerbation although no formal diagnosis Plan -Monitor respiratory status closely in ICU -Continue BiPAP -Vancomycin -Zosyn -Tamiflu -Solu-Medrol -DuoNeb -Budesonide Strep pneumonia bacteremia -Repeat blood cultures -Continue IV Zosyn Sepsis -Sepsis features met given evidence of acute respiratory failure, acute respiratory distress, lactic acid 5.0, white blood cell count 18,000 Acute encephalopathy, resolving -Toxic and metabolic -Likely from sepsis, pneumonia, influenza -CT head no acute findings -Neurochecks -NIH -Aspiration precautions Concerns for atypical infection -CT of the chest shows 2. Enlarged 1.5 cm subcarinal lymph node. Most probably reactive. 5. Large consolidation with air bronchograms and small pneumatoceles in the right upper lobe. Consistent with severe right upper lobe pneumonia. 6. Patchy/ground-glass consolidations and multiple tree-in-bud nodules throughout the right middle lobe, right lower lobe, and left lung. Consistent with multifocal pneumonia. 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 Cunningham -Reported hemoptysis -No reported consumption of raw milk Plan -Do workup for atypical infection -Fungal studies -LDH, beta 1 3 glucan -Aspergillosis -QuantiFERON gold -3 AFB smears -Sputum studies Acute on chronic liver failure -History of liver cirrhosis -Gallbladder ultrasound shows cirrhosis, mildly decompensated portal hypertension - reports no alcoholism in the last 4 years -CT scan shows evidence of liver cirrhosis, portal hypertension, splenomegaly -Albumin 2.5 -Creatinine 1.2 -T. bili 4.1, -AST 85 -Alk phos 171 -Ammonia 31 acute hep, hepatitis C panel positive, awaiting on PCR -hiv Acute anemia -Low MCV -Evidence of iron deficiency anemia -Check iron, ferritin -Hemoccult stool Acute on chronic thrombocytopenia -Likely sec to liver failure -Monitor Lactic acidosis -Likely from sepsis NSTEMI -Serial EKGs, serial troponins, telemetry monitoring Urinary tract infection, antibiotics as above Elevated INR, likely from liver failure Full code Lovenox for DVT prophylaxis PDMP PDMP Reviewed: Not Reviewed Attestations 2 Medical Necessity Statement*: Patient requires hospitalization for acute respiratory failure secondary to pneumonia and streptococcal bacteremia, acute on chronic liver failure, acute anemia, acute thrombocytopenia Diagnoses Acute hypoxic respiratory failure J96.01 Pneumonia J18.9 Atypical pneumonia J18.9 Sepsis A41.9 Anemia D64.9 Thrombocytopenia D69.6 UTI (urinary tract infection) N39.0 Acute encephalopathy G93.40 Lactic acidosis E87.20 Elevated INR R79.1 Cirrhosis of liver K74.60
[2024-10-13] MEDS: enoxaparin 40 mg/0.4 mL Syringe SUBCUT (19:45)
--- NOTE | 2024-10-13 19:51 | PC.NURSE ---
Shift summary: Pt prefers to rest in bed thought the day. Offers to assist him out of bed in am and at lunch refused. He did agree to s it in chair for diner. He is able to bear weight. he tends to hunch over and shuffle feet. When reminds to stand straight he takes much surer steps. he did not tolerated sitting up long, he wanted to go back to bed as soon as he finished his last bite of dinner. he was encouraged to continue to sit up in chair. He used the BiPap at 28% [id number] about 1000, then had 3lpm/NC. e went back on BiPap during quiet time. Off again for dinner. He was started on clear liquid diet. He gulped his liquids, sputtered and coughed. He was encouraged to slow down and breath between bites or sips. He used urinal once in am. Narayanan ordered, pt agreed, narayanan inserted. He had 260 ml of dark yellow urine output in narayanan. No Bm noted this shift. He did report pain all over, acetaminophen admin once this shift. His called for update, update provided.
[2024-10-14] VITALS (42 sets, daily range): BP systolic 137–153; BP diastolic 71–83; PULSE 60–110; RESP 16–39; TEMP 36.8–37.1; O2SAT 92–100
[2024-10-14] MEDS: methylPREDNISolone sod succ 40 mg/mL INJ IVP ×2 (00:16→09:08)
[2024-10-14] MEDS: piperacillin-tazobactam 3.375 GM in sodium chloride 0.9% (plus) 50 ML IV ×4 (00:16→23:45)
[2024-10-14 02:17] LABS: Basophils % 0.1 %; Hematocrit 28.5 % (37-53); Lymphocytes # 1.3 10^3/uL (0.8-4.8); Lymphocytes % 14.8 %; Mean Corpuscular HGB Conc 29.5 g/dL (30-55); Mean Corpuscular Hemoglobin 20.9 pg (27-33); Mean Corpuscular Volume 71.1 fl (82-101); Mean Platelet Volume 9.3 fL (7.4-10.4); Monocytes # 0.5 10^3/uL (0.2-0.9); Monocytes % 5.7 %; Neutrophils # 6.37 10^3/uL (1.8-7.7); Neutrophils % 75.7 %; Nucleated Red Blood Cells # 0.1 /100WBC; Nucleated Red Blood Cells % 0.8 %; Platelet Count 77 10^3/cmm (157-399); Red Blood Count 4.01 10^6/uL (3.85-5.65); White Blood Count 8.42 10^3/uL (3.29-11.43)
[2024-10-14 02:39] LABS: Lactate (Lactic Acid level) 1.9 mmol/L (0.5-2.2)
[2024-10-14 02:40] LABS: Alanine Aminotransferase 21 U/L (0-41); Alkaline Phosphatase 119 U/L (40-130); Anion Gap 13.3 (5-19); Carbon Dioxide 25 mmol/L (22-29); Chloride 105 mmol/L (98-107); Globulin 3.1 g/dL (1.3-4.6); Sodium 140 mmol/L (136-145)
[2024-10-14 02:47] LABS: INR 1.49 (0.8-1.2)
[2024-10-14 02:49] LABS: NT Pro B Type Natriuretic Pept 4420 pg/mL (0-125); Procalcitonin 0.92 ng/mL (0-0.5)
[2024-10-14 02:59] LABS: Blood Urea Nitrogen 35 mg/dL (6-20); Calcium 7.7 mg/dL (8.5-10.5); Creatinine Clr Calc Pharmacy 76.9485
[2024-10-14 03:00] LABS: Aspartate Amino Transferase 105 U/L (0-40); Glucose 151 mg/dL (65-115); Osmolality Calculated 301 mOsm/kg (285-295); Phosphorus 1.7 mg/dL (2.5-4.5); Potassium 3.3 mmol/L (3.5-5.1); Total Bilirubin 3.7 mg/dL (0.15-1.2)
[2024-10-14 03:01] LABS: Albumin Level 2.3 g/dL (3.5-5.2); C Reactive Protein 137.6 mg/L (0.0-4.9); Total Protein 5.4 g/dL (6.6-8.7)
[2024-10-14] MEDS: ipratropium-albuterol 3 mL Neb INHALATION ×6 (03:03→23:06)
[2024-10-14] MEDS: VANCOMYCIN ADD-Vantage 1,000 MG in 0.9% NaCl ADD-Vantage 250 ML 250 MG IV ×2 (05:05→18:31)
[2024-10-14] MEDS: acetaminophen 325 mg Tablet 650 MG PO ×3 (06:40→22:11)
--- NOTE | 2024-10-14 07:25 | PC.NURSE ---
Pt up to bedside chair this am.. He is agreeable to sitting up for all meals per pt.
[2024-10-14] MEDS: budesonide 0.5 mg/2 mL Neb 0.25 MG INHALATION ×2 (08:30→20:25)
[2024-10-14] MEDS: sucralfate 1 gm/10 mL Oral Liq UDC PO ×2 (09:05→20:02)
[2024-10-14] MEDS: pantoprazole 40 mg SDV IVP ×2 (09:06→20:02)
[2024-10-14] MEDS: multivitamin therapeutic Tablet 1 TAB PO (09:07)
[2024-10-14] MEDS: thiamine 100 mg Tablet PO (09:07)
[2024-10-14] MEDS: oseltamivir phosphate 75 mg Capsule PO ×2 (09:07→18:30)
[2024-10-14] MEDS: folic acid 1 mg Tablet PO (09:08)
[2024-10-14] MEDS: atorvastatin 40 mg Tablet PO (09:08)
[2024-10-14] MEDS: ondansetron 2 mg/ML SDV 2 mL 4 MG IVP (09:11)
--- NOTE | 2024-10-14 12:00 | PC.NURSE ---
Pt sent back to bed around 1030. He is now declining to getting out of bed for lunch.
[2024-10-14 12:20] LABS: HEP C RNA Viral Load Quant 4380000 IU/mL (NOT DETECTED); HEP C RNA Viral Load Quant 6.64 Log IU/mL (NOT DETECTED)
--- NOTE | 2024-10-14 15:21 | PC.NURSE ---
Pt provided discharge instructions on follow up appt, care notes on medications and disease processes, BP log and HTN education sheet. Pt declined to review care notes with nurse, stated he would read at home. Pt able to demonstrate how to use sliding scale with success. Pt wanted to go to front o hospital to wait for his ride. Pt taken to front entrance via W/C.
[2024-10-14] MEDS: gabapentin 300 mg Capsule 600 MG PO ×2 (15:49→20:02)
--- NOTE | 2024-10-14 16:20 | PC.NURSE ---
Occupational therapy here. Pt up to chair.
--- NOTE | 2024-10-14 16:32 | PM.PN ---
Subjective Subjective: Patient was examined this morning, nursing staff at bedside does complain of nausea, vomiting he is alert to person, to place, not to time he can follow commands complains of shortness of breath, no chest pain I did detailed discussion with him about his streptococcal pneumonia bacteremia with influenza with respiratory failure, his deconditioning, workup for atypical infections, will have speech therapy see him Vitals/I&O/Wt Last Vital Signs Temp 98.7 F 10/14/24 08:00 Pulse 87 10/14/24 15:47 Resp 18 10/14/24 15:47 BP 149/77 10/14/24 10:00 Pulse Ox 98 10/14/24 15:47 O2 Del Method Nasal Cannula 10/14/24 15:47 O2 Flow Rate 3 10/14/24 15:47 FiO2 28 10/14/24 15:46 10/14/24 10/14/24 10/14/24 06:59 14:59 22:59 Intake Total 300 / 650 50 / 50 Output Total 650 / 975 Balance -350 / -325 50 / 50 Weight last 48 hrs Weight 84.414 kg Weight 83.733 kg Physical Exam Const: COMMON NORMALS: no acute distress and patient oriented x3 Resp: COMMON NORMALS: normal respiratory effort, No retractions and No use of accessory muscles AUSCULTATION: crackles and wheezes Cardio: COMMON NORMALS: regular rate, regular rhythm, S1 normal heart sound present and S2 normal heart sound present RATE: regular rate RHYTHM: regular rhythm HEART SOUNDS: S1 normal heart sound present and S2 normal heart sound present GI: COMMON NORMALS: Normal to inspection, nondistended, normoactive bowel sounds present and non-tender Extremity: COMMON NORMALS: no pedal edema Neuro: COMMON NORMALS: patient oriented x3 Psych: COMMON NORMALS: mental status grossly normal Urinary Catheter Management: Boyd: Cath Placed During This Visit: yes Reason for Continuing Indwelling Catheter: Accurate Measurement of Urinary Output in Critically Ill Patients Urinary Catheter Date of Insertion: 10/13/24 Urinary Catheter Time of Insertion: 11:40 Data 10/14/24 01:58 10/14/24 01:58 Micro: Microbiology 10/12/24 06:05 Gram Stain - Final Sputum - Expectorated Sputum Sputum Culture - Preliminary 10/12/24 17:26 Urine Culture - Final Urine,Clean Catch 10/14/24 01:58 Blood Culture - Preliminary Blood SPECIMEN COLLECTED 10/14/24 01:58 Blood Culture - Preliminary Blood SPECIMEN COLLECTED 10/12/24 15:46 Blood Culture - Preliminary Blood NEGATIVE TO DATE 10/12/24 15:42 Blood Culture - Preliminary Blood Streptococcus pneumoniae A&P Assessment and plan (1) Acute hypoxic respiratory failure: (2) Pneumonia: (3) Atypical pneumonia: (4) Sepsis: (5) Anemia: (6) Thrombocytopenia: (7) UTI (urinary tract infection): (8) Acute encephalopathy: (9) Lactic acidosis: (10) Elevated INR: (11) Cirrhosis of liver: Plan Acute hypoxic respiratory failure -Multifactorial -Likely from underlying pneumonia -With influenza A -Concerns for COPD exacerbation although no formal diagnosis Plan -Monitor respiratory status closely in ICU -Continue BiPAP -Vancomycin -Zosyn -Tamiflu -Solu-Medrol -DuoNeb -Budesonide -Concern for aspiration, given right upper lobe pneumonia, speech therapy to see dysphagia level 4 diet, modified barium swallow Strep pneumonia bacteremia -Repeat blood cultures pending -Continue IV Zosyn Sepsis, resolving -Sepsis features met given evidence of acute respiratory failure, acute respiratory distress, lactic acid 5.0, white blood cell count 18,000 Acute encephalopathy, resolving -Toxic and metabolic -Likely from sepsis, pneumonia, influenza -CT head no acute findings -Neurochecks -NIH -Aspiration precautions Concerns for atypical infection -CT of the chest shows 2. Enlarged 1.5 cm subcarinal lymph node. Most probably reactive. 5. Large consolidation with air bronchograms and small pneumatoceles in the right upper lobe. Consistent with severe right upper lobe pneumonia. 6. Patchy/ground-glass consolidations and multiple tree-in-bud nodules throughout the right middle lobe, right lower lobe, and left lung. Consistent with multifocal pneumonia. -Is from [facility], used to work in the [employer] field -Has a history of pulmonary nodules, etiology unclear, used to follow-up with Dr. Cunningham -Reported hemoptysis -No reported consumption of raw milk Plan -Do workup for atypical infection -Fungal studies -LDH, beta 1 3 glucan -Aspergillosis -QuantiFERON gold -3 AFB smears -Sputum studies Acute on chronic liver failure -History of liver cirrhosis -Gallbladder ultrasound shows cirrhosis, mildly decompensated portal hypertension - reports no alcoholism in the last 4 years -CT scan shows evidence of liver cirrhosis, portal hypertension, splenomegaly -Albumin 2.5 -Creatinine 1.2 -T. bili 4.1, -AST 85 -Alk phos 171 -Ammonia 31 acute hep, hepatitis C panel positive, awaiting on PCR -hiv Acute anemia -Low MCV -Evidence of iron deficiency anemia -Iron 17, ferritin 166 -Hemoccult stool Acute on chronic thrombocytopenia -Likely sec to liver failure -Monitor Lactic acidosis -Likely from sepsis NSTEMI -Serial EKGs, serial troponins, telemetry monitoring Urinary tract infection, antibiotics as above Elevated INR, likely from liver failure Acute deconditioning, PT OT Full code Lovenox for DVT prophylaxis PDMP PDMP Reviewed: Not Reviewed Attestations Medical Necessity Statement*: Patient requires hospitalization, streptococcal pneumonia bacteremia, with pneumonia, influenza A, acute on chronic liver failure, acute anemia, acute thrombocytopenia Diagnoses Acute hypoxic respiratory failure J96.01 Pneumonia J18.9 Atypical pneumonia J18.9 Sepsis A41.9 Anemia D64.9 Thrombocytopenia D69.6 UTI (urinary tract infection) N39.0 Acute encephalopathy G93.40 Lactic acidosis E87.20 Elevated INR R79.1 Cirrhosis of liver K74.60
[2024-10-14 17:58] LABS: Vancomycin Trough 13.6 ug/mL (10-15)
--- NOTE | 2024-10-14 18:00 | PC.NURSE ---
Report called to CSU and given to Aliza Nascimento. Pt to transfer after eating his meal. Vanc admin delayed due to accidental discharge that delayed vanc trough.
--- NOTE | 2024-10-14 18:45 | PC.NURSE ---
Pt transferred to Room 101 [facility]. All belongings with pt. Transferred via W/C, then assisted into bed. vanc and Zosyn infusing. Pt's wallet retrieved from [employer].
--- NOTE | 2024-10-14 19:00 | PC.NURSE ---
Pt's wallet: Retrieved from ICU pyxis. Pt decided to keep wallet at bedside. Nurse and pt counted out his money and verified the $67, and all his cards are present. Pt signed receipt of belongings.
[2024-10-14] MEDS: morphine 4 mg/mL SDV 1 mL 2 MG IVP (23:45)
[2024-10-15] VITALS (16 sets, daily range): BP systolic 135–167; BP diastolic 73–83; PULSE 64–93; RESP 17–31; TEMP 36.8–37.3; O2SAT 93–98
[2024-10-15 03:14] LABS: Hematocrit 25.2 % (37-53); Lymphocytes % 18.2 %; Mean Corpuscular HGB Conc 29.8 g/dL (30-55); Mean Corpuscular Hemoglobin 21.4 pg (27-33); Monocytes # 0.4 10^3/uL (0.2-0.9); Monocytes % 6.9 %; Neutrophils # 3.86 10^3/uL (1.8-7.7); Neutrophils % 71.7 %; Nucleated Red Blood Cells % 0.7 %; Platelet Count 43 10^3/cmm (157-399); Red Cell Distribution Width 20.2 % (12.1-15.1); White Blood Count 5.38 10^3/uL (3.29-11.43)
[2024-10-15 03:50] LABS: C Reactive Protein 60.7 mg/L (0.0-4.9)
[2024-10-15 03:55] LABS: NT Pro B Type Natriuretic Pept 3090 pg/mL (0-125); Procalcitonin 0.62 ng/mL (0-0.5)
[2024-10-15 04:06] LABS: Anion Gap 13.8 (5-19); Blood Urea Nitrogen 35 mg/dL (6-20); Calcium 7.6 mg/dL (8.5-10.5); Carbon Dioxide 23 mmol/L (22-29); Chloride 104 mmol/L (98-107); Creatinine Clr Calc Pharmacy 84.6434; Glucose 147 mg/dL (65-115); Osmolality Calculated 295 mOsm/kg (285-295); Potassium 3.8 mmol/L (3.5-5.1); Sodium 137 mmol/L (136-145)
[2024-10-15] MEDS: VANCOMYCIN ADD-Vantage 1,000 MG in 0.9% NaCl ADD-Vantage 250 ML 250 MG IV (04:24)
[2024-10-15] MEDS: ipratropium-albuterol 3 mL Neb INHALATION ×6 (04:55→23:38)
[2024-10-15] MEDS: budesonide 0.5 mg/2 mL Neb 0.25 MG INHALATION ×2 (08:18→19:49)
[2024-10-15] MEDS: sucralfate 1 gm/10 mL Oral Liq UDC PO ×2 (08:31→20:18)
[2024-10-15] MEDS: piperacillin-tazobactam 3.375 GM in sodium chloride 0.9% (plus) 50 ML IV (08:32)
[2024-10-15] MEDS: gabapentin 300 mg Capsule 600 MG PO ×3 (08:32→20:31)
[2024-10-15] MEDS: atorvastatin 40 mg Tablet PO (08:32)
[2024-10-15] MEDS: predniSONE 20 mg Tablet 40 MG PO (08:33)
[2024-10-15] MEDS: thiamine 100 mg Tablet PO (08:33)
[2024-10-15] MEDS: multivitamin therapeutic Tablet 1 TAB PO (08:33)
[2024-10-15] MEDS: pantoprazole 40 mg SDV IVP ×2 (08:33→20:20)
[2024-10-15] MEDS: folic acid 1 mg Tablet PO (08:33)
[2024-10-15] MEDS: oseltamivir phosphate 75 mg Capsule PO ×2 (08:33→17:15)
--- NOTE | 2024-10-15 10:09 | PC.NURSE ---
off unit for modified barium swallow test ushered via bed and then transfer to [facility].
[2024-10-15] MEDS: morphine 4 mg/mL SDV 1 mL 2 MG IVP ×3 (12:16→20:46)
--- NOTE | 2024-10-15 15:26 | P.PN_ITS ---
Subjective 2 Subjective: Patient was seen this morning, complaining of cough, shortness of breath, weakness, he is alert awake and follow commands, no nausea, no vomiting denies dysphagia, no odynophagia Vitals/I&O/Wt Last Vital Signs Temp 99.2 F 10/15/24 08:00 Pulse 86 10/15/24 11:59 Resp 18 10/15/24 12:16 BP 167/79 10/15/24 08:00 Pulse Ox 96 10/15/24 12:16 O2 Del Method Nasal Cannula 10/15/24 11:59 O2 Flow Rate 2 10/15/24 11:59 FiO2 21 10/15/24 04:55 10/15/24 10/15/24 10/15/24 06:59 14:59 22:59 Intake Total 700 / 1570 270.208 / 270.208 Output Total 600 / 1450 Balance 100 / 120 270.208 / 270.208 Weight last 48 hrs Weight 85.593 kg Physical Exam 2 Const: COMMON NORMALS: no acute distress and patient oriented x3 Resp: COMMON NORMALS: normal respiratory effort, No retractions and No use of accessory muscles AUSCULTATION: crackles and wheezes Cardio: COMMON NORMALS: regular rate, regular rhythm, S1 normal heart sound present and S2 normal heart sound present RATE: regular rate RHYTHM: r egular rhythm HEART SOUNDS: S1 normal heart sound present and S2 normal heart sound present GI: COMMON NORMALS: Normal to inspection, nondistended, normoactive bowel sounds present and non-tender Extremity: COMMON NORMALS: no pedal edema Neuro: COMMON NORMALS: patient oriented x3 Psych: COMMON NORMALS: mental status grossly normal Urinary Catheter Management: Boyd: Cath Placed During This Visit: yes Reason for Continuing Indwelling Catheter: Accurate Measurement of Urinary Output in Critically Ill Patients Urinary Catheter Date of Insertion: 10/13/24 Urinary Catheter Time of Insertion: 11:40 Data 10/15/24 03:05 10/15/24 03:05 Micro: Microbiology 10/12/24 06:05 Mycobacterial Smear - Preliminary Sputum - Expectorated Sputum 10/12/24 15:42 Blood Culture - Final Blood Streptococcus pneumoniae 10/12/24 15:46 Blood Culture - Final Blood Streptococcus pneumoniae 10/12/24 06:05 Gram Stain - Final Sputum - Expectorated Sputum Sputum Culture - Preliminary Yeast species 10/14/24 01:58 Blood Culture - Preliminary Blood NEGATIVE TO DATE 10/14/24 01:58 Blood Culture - Preliminary Blood NEGATIVE TO DATE A&P Assessment and plan (1) Acute hypoxic respiratory failure: (2) Pneumonia: (3) Atypical pneumonia: (4) Sepsis: (5) Anemia: (6) Thrombocytopenia: (7) UTI (urinary tract infection): (8) Acute encephalopathy: (9) Lactic acidosis: (10) Elevated INR: (11) Cirrhosis of liver: Plan Acute hypoxic respiratory failure -Multifactorial -Likely from underlying pneumonia -With influenza A -Concerns for COPD exacerbation although no formal diagnosis Plan -Monitor respiratory status closely in ICU -Continue BiPAP -Vancomycin discontinued -Zosyn de-escalated to Rocephin -Tamiflu day 3 of 5 -Solu-Medrol, de-escalated to prednisone -DuoNeb -Budesonide -Concern for aspiration, given right upper lobe pneumonia, speech therapy to see dysphagia level 4 diet, modified barium swallow today Strep pneumonia bacteremia -Repeat blood cultures pending -Transition to Rocephin Sepsis, resolving -Sepsis features met given evidence of acute respiratory failure, acute respiratory distress, lactic acid 5.0, white blood cell count 18,000 Acute encephalopathy, resolving -Toxic and metabolic -Likely from sepsis, pneumonia, influenza -CT head no acute findings -Neurochecks -NIH -Aspiration precautions Concerns for atypical infection -CT of the chest shows 2. Enlarged 1.5 cm subcarinal lymph node. Most probably reactive. 5. Large consolidation with air bronchograms and small pneumatoceles in the right upper lobe. Consistent with severe right upper lobe pneumonia. 6. Patchy/ground-glass consolidations and multiple tree-in-bud nodules throughout the right middle lobe, right lower lobe, and left lung. Consistent with multifocal pneumonia. -Is from [facility], used to work in the [employer] field -Has a history of pulmonary nodules, etiology unclear, used to follow-up with Dr. Cunningham -Reported hemoptysis -No reported consumption of raw milk Plan -Do workup for atypical infection -Fungal studies -LDH, beta 1 3 glucan -Aspergillosis -QuantiFERON gold -3 AFB smears -Sputum studies Acute on chronic liver failure -History of liver cirrhosis -Gallbladder ultrasound shows cirrhosis, mildly decompensated portal hypertension - reports no alcoholism in the last 4 years -CT scan shows evidence of liver cirrhosis, portal hypertension, splenomegaly -Albumin 2.5 -Creatinine 1.2 -T. bili 4.1, -AST 85 -Alk phos 171 -Ammonia 31 acute hep, hepatitis C panel positive, awaiting on PCR -hiv Acute anemia -Low MCV -Evidence of iron deficiency anemia -Iron 17, ferritin 166 -Hemoccult stool ? Hemoglobin down to 7.5 transfuse 1 unit PRBC Acute on chronic thrombocytopenia -Likely sec to liver failure -Monitor Lactic acidosis -Likely from sepsis NSTEMI -Serial EKGs, serial troponins, telemetry monitoring Urinary tract infection, antibiotics as above Elevated INR, likely from liver failure Acute deconditioning, PT OT Full code Lovenox for DVT prophylaxis Patient requires hospitalization for streptococcal bacteremia. IV antibiotics, pneumonia, modified barium swallow, transfuse 1 unit PRBC PDMP PDMP Reviewed: Not Reviewed Attestations 2 Medical Necessity Statement*: Patient requires hospitalization, for acute hypoxic respiratory failure secondary to streptococcal pneumonia with streptococcal pneumonia bacteremia, acute anemia requiring transfusion PRBC Diagnoses Acute hypoxic respiratory failure J96.01 Pneumonia J18.9 Atypical pneumonia J18.9 Sepsis A41.9 Anemia D64.9 Thrombocytopenia D69.6 UTI (urinary tract infection) N39.0 Acute encephalopathy G93.40 Lactic acidosis E87.20 Elevated INR R79.1 Cirrhosis of liver K74.60
[2024-10-15] MEDS: LORazepam 2 mg Tablet PO (15:40)
[2024-10-15] MEDS: HYDROcodone-acetaminophen 10-325 mg Tablet 1 TAB PO (15:40)
[2024-10-15 16:17] LABS: Basophils % 0.2 %; Hematocrit 25.8 % (37-53); Lymphocytes # 0.9 10^3/uL (0.8-4.8); Lymphocytes % 15.8 %; Mean Corpuscular HGB Conc 29.5 g/dL (30-55); Mean Corpuscular Hemoglobin 21.1 pg (27-33); Mean Corpuscular Volume 71.7 fl (82-101); Mean Platelet Volume 8.8 fL (7.4-10.4); Monocytes # 0.4 10^3/uL (0.2-0.9); Neutrophils # 4.22 10^3/uL (1.8-7.7); Neutrophils % 72.5 %; Nucleated Red Blood Cells # 0.1 /100WBC; Nucleated Red Blood Cells % 0.9 %; Platelet Count 41 10^3/cmm (157-399); Red Cell Distribution Width 19.9 % (12.1-15.1); White Blood Count 5.82 10^3/uL (3.29-11.43)
--- NOTE | 2024-10-15 16:33 | FL_ITS ---
WS: [id number] Exam: FL barium swallow modifd [id number] Date/Time of Exam: 10/15/2024 10:16 AM Reason For Exam: Oral dysphagia Fluoroscopy time: 1min [id number] minutes # of spot films: 0 Modified barium swallow test is performed in conjunction with the speech therapy service. The patient had difficulty chewing and swallowing solid barium mixture foodstuffs. The patient tolerated liquid and pudding consistency barium mixture foodstuffs without difficulty. The patient swallowed a barium tablet without complication. No penetration or aspiration was observed. FL/FL barium swallow modifd [id number] IMPRESSION: 1. The patient could not tolerate solid barium mixture foodstuffs. The patient tolerated liquid and pudding consistency barium foodstuffs without difficulty. 2. No aspiration or penetration was identified. A separate report and recommendations will follow from the speech therapy servi ce.
[2024-10-15 18:55] LABS: Aspergillus AG,EIA,Serum NOT DETECTED; Aspergillus Galactomannan Inde <0.50
[2024-10-15] MEDS: cefTRIAXone 1,000 mg SDV 1000 MG IVP (20:20)
[2024-10-16] VITALS (18 sets, daily range): BP systolic 127–160; BP diastolic 68–82; PULSE 69–122; RESP 15–19; TEMP 36.6–37; O2SAT 90–100
[2024-10-16] MEDS: sodium chloride 0.9% (100 ml) 100 ML (04:26)
[2024-10-16 07:25] LABS: Basophils % 0.1 %; Hematocrit 31.2 % (37-53); Lymphocytes # 1.7 10^3/uL (0.8-4.8); Lymphocytes % 23.1 %; Mean Corpuscular HGB Conc 30.1 g/dL (30-55); Mean Corpuscular Hemoglobin 22.3 pg (27-33); Mean Corpuscular Volume 73.9 fl (82-101); Monocytes # 0.7 10^3/uL (0.2-0.9); Monocytes % 9.1 %; Neutrophils # 4.55 10^3/uL (1.8-7.7); Neutrophils % 63.8 %; Nucleated Red Blood Cells # 0.1 /100WBC; Nucleated Red Blood Cells % 0.8 %; Platelet Count 48 10^3/cmm (157-399); Red Blood Count 4.22 10^6/uL (3.85-5.65); Red Cell Distribution Width 21.2 % (12.1-15.1); White Blood Count 7.14 10^3/uL (3.29-11.43)
[2024-10-16] MEDS: ipratropium-albuterol 3 mL Neb INHALATION ×3 (07:41→15:42)
[2024-10-16] MEDS: budesonide 0.5 mg/2 mL Neb 0.25 MG INHALATION (07:41)
[2024-10-16 07:56] LABS: Anion Gap 8.3 (5-19); Blood Urea Nitrogen 27 mg/dL (6-20); C Reactive Protein 33.5 mg/L (0.0-4.9); Calcium 7.5 mg/dL (8.5-10.5); Carbon Dioxide 25 mmol/L (22-29); Chloride 107 mmol/L (98-107); Creatinine Clr Calc Pharmacy 95.4423; Glucose 99 mg/dL (65-115); Osmolality Calculated 287 mOsm/kg (285-295); Potassium 4.3 mmol/L (3.5-5.1); Sodium 136 mmol/L (136-145)
[2024-10-16 09:02] LABS: NT Pro B Type Natriuretic Pept 1706 pg/mL (0-125); Procalcitonin 0.44 ng/mL (0-0.5)
[2024-10-16] MEDS: sucralfate 1 gm/10 mL Oral Liq UDC PO ×2 (09:14→21:23)
[2024-10-16] MEDS: pantoprazole 40 mg SDV IVP ×2 (09:14→21:23)
[2024-10-16] MEDS: atorvastatin 40 mg Tablet PO (09:15)
[2024-10-16] MEDS: gabapentin 300 mg Capsule 600 MG PO ×3 (09:15→21:23)
[2024-10-16] MEDS: oseltamivir phosphate 75 mg Capsule PO ×2 (09:15→17:49)
[2024-10-16] MEDS: folic acid 1 mg Tablet PO (09:15)
[2024-10-16] MEDS: predniSONE 20 mg Tablet 40 MG PO (09:15)
[2024-10-16] MEDS: multivitamin therapeutic Tablet 1 TAB PO (09:16)
[2024-10-16] MEDS: thiamine 100 mg Tablet PO (09:16)
--- NOTE | 2024-10-16 16:45 | P.PN_ITS ---
Subjective 2 Subjective: Patient was seen this morning, he is alert to person, to place, not to time, he follows all commands reports feeling fatigue and weak, no nausea, vomiting, Vitals/I&O/Wt Last Vital Signs Temp 98.6 F 10/16/24 12:00 Pulse 81 10/16/24 15:43 Resp 18 10/16/24 15:43 BP 128/68 10/16/24 12:00 Pulse Ox 92 10/16/24 15:43 O2 Del Method Room Air 10/16/24 15:43 O2 Flow Rate 3 10/16/24 07:42 FiO2 21 10/15/24 04:55 10/16/24 10/16/24 10/16/24 06:59 14:59 22:59 Intake Total 350 / 620.208 240 / 240 Output Total 1700 / 1700 Balance -1350 / -1079.792 240 / 240 Weight last 48 hrs Weight 87.135 kg Weight 85.593 kg Physical Exam 2 Const: COMMON NORMALS: no acute distress and patient oriented x3 Resp: COMMON NORMALS: normal respiratory effort, No retractions, No use of accessory muscles and clear to auscultation bilaterally AUSCULTATION: clear to auscultation bilaterally Cardio: COMMON NORMALS: regular rate, regular rhythm, S1 normal heart sound present and S2 normal heart sound present RATE: regular rate RHYTHM: r egular rhythm HEART SOUNDS: S1 normal heart sound present and S2 normal heart sound present GI: COMMON NORMALS: Normal to inspection, nondistended, normoactive bowel sounds present and non-tender Extremity: COMMON NORMALS: no pedal edema Neuro: COMMON NORMALS: patient oriented x3 Psych: COMMON NORMALS: mental status grossly normal Urinary Catheter Management: Boyd: Cath Placed During This Visit: yes Reason for Continuing Indwelling Catheter: Acute Urinary Retention or Obstruction Urinary Catheter Date of Insertion: 10/13/24 Urinary Catheter Time of Insertion: 11:40 Data 10/16/24 06:52 10/16/24 06:52 Micro: Microbiology 10/12/24 06:05 Mycobacterial Smear - Preliminary Sputum - Expectorated Sputum 10/12/24 15:42 Blood Culture - Final Blood Streptococcus pneumoniae 10/12/24 15:46 Blood Culture - Final Blood Streptococcus pneumoniae A&P Assessment and plan (1) Acute hypoxic respiratory failure: (2) Pneumonia: (3) Atypical pneumonia: (4) Sepsis: (5) Anemia: (6) Thrombocytopenia: (7) UTI (urinary tract infection): (8) Acute encephalopathy: (9) Lactic acidosis: (10) Elevated INR: (11) Cirrhosis of liver: Plan Acute hypoxic respiratory failure -Multifactorial -Likely from underlying pneumonia -With influenza A -Concerns for COPD exacerbation although no formal diagnosis Plan -Monitor respiratory status closely in ICU -Continue BiPAP -Vancomycin discontinued -Zosyn de-escalated to Rocephin -Tamiflu day 3 of 5 -Solu-Medrol, de-escalated to prednisone -DuoNeb -Budesonide -Concern for aspiration, given right upper lobe pneumonia, speech therapy to see dysphagia level 4 diet, modified barium swallow no significant aspiration, advance diet as tolerated Strep pneumonia bacteremia -Repeat blood cultures pending -Transition to Rocephin Sepsis, resolving -Sepsis features met given evidence of acute respiratory failure, acute respiratory distress, lactic acid 5.0, white blood cell count 18,000 Acute encephalopathy, resolving -Toxic and metabolic -Likely from sepsis, pneumonia, influenza -CT head no acute findings -Neurochecks -NIH -Aspiration precautions Concerns for atypical infection -CT of the chest shows 2. Enlarged 1.5 cm subcarinal lymph node. Most probably reactive. 5. Large consolidation with air bronchograms and small pneumatoceles in the right upper lobe. Consistent with severe right upper lobe pneumonia. 6. Patchy/ground-glass consolidations and multiple tree-in-bud nodules throughout the right middle lobe, right lower lobe, and left lung. Consistent with multifocal pneumonia. 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 Cunningham -Reported hemoptysis -No reported consumption of raw milk Plan -Do workup for atypical infection -Fungal studies -LDH, beta 1 3 glucan -Aspergillosis -QuantiFERON gold -3 AFB smears -Sputum studies Acute on chronic liver failure -History of liver cirrhosis -Gallbladder ultrasound shows cirrhosis, mildly decompensated portal hypertension - reports no alcoholism in the last 4 years -CT scan shows evidence of liver cirrhosis, portal hypertension, splenomegaly -Albumin 2.5 -Creatinine 1.2 -T. bili 4.1, -AST 85 -Alk phos 171 -Ammonia 31 acute hep, hepatitis C panel positive, awaiting on PCR -hiv Acute anemia, hemoglobin up to 9.4 -Low MCV -Evidence of iron deficiency anemia -Iron 17, ferritin 166 -Hemoccult stool ? Hemoglobin down to 7.5 transfuse 1 unit PRBC - Acute on chronic thrombocytopenia -Likely sec to liver failure -Monitor Lactic acidosis -Likely from sepsis NSTEMI -Serial EKGs, serial troponins, telemetry monitoring Urinary tract infection, antibiotics as above Elevated INR, likely from liver failure Acute deconditioning, PT OT Full code Lovenox for DVT prophylaxis currently on hold, SCDs for DVT prophylaxis Patient requires hospitalization for streptococcal bacteremia. IV antibiotics, PDMP PDMP Reviewed: Not Reviewed Attestations 2 Medical Necessity Statement*: Patient requires hospitalization for acute hypoxic respiratory failure secondary streptococcal pneumonia, bacteremia Diagnoses Acute hypoxic respiratory failure J96.01 Pneumonia J18.9 Atypical pneumonia J18.9 Sepsis A41.9 Anemia D64.9 Thrombocytopenia D69.6 UTI (urinary tract infection) N39.0 Acute encephalopathy G93.40 Lactic acidosis E87.20 Elevated INR R79.1 Cirrhosis of liver K74.60
[2024-10-16] MEDS: cefTRIAXone 1,000 mg SDV 1000 MG IVP (21:22)
[2024-10-16] MEDS: zolpidem 5 mg Tablet PO (21:23)
[2024-10-16] MEDS: HYDROcodone-acetaminophen 10-325 mg Tablet 1 TAB PO (21:50)
[2024-10-16] MEDS: morphine 4 mg/mL SDV 1 mL 2 MG IVP (22:50)
[2024-10-17] VITALS (17 sets, daily range): BP systolic 126–157; BP diastolic 68–83; PULSE 64–96; RESP 12–21; TEMP 36.4–37.1; O2SAT 92–98
[2024-10-17] MEDS: ipratropium-albuterol 3 mL Neb INHALATION ×4 (00:29→19:58)
[2024-10-17 04:20] LABS: Fungitell 1-3-B Glucan Assay <31 pg/ml; Interpretation Negative (Negative)
[2024-10-17 04:27] LABS: Basophils % 0.1 %; Hematocrit 32.2 % (37-53); Lymphocytes # 1.4 10^3/uL (0.8-4.8); Lymphocytes % 17.5 %; Mean Corpuscular HGB Conc 29.8 g/dL (30-55); Mean Corpuscular Hemoglobin 22.6 pg (27-33); Mean Corpuscular Volume 75.9 fl (82-101); Monocytes # 0.8 10^3/uL (0.2-0.9); Monocytes % 9.6 %; Neutrophils # 5.49 10^3/uL (1.8-7.7); Nucleated Red Blood Cells % 0.5 %; Platelet Count 43 10^3/cmm (157-399); Red Blood Count 4.24 10^6/uL (3.85-5.65); Red Cell Distribution Width 21.4 % (12.1-15.1); White Blood Count 7.84 10^3/uL (3.29-11.43)
[2024-10-17 04:31] LABS: Mean Platelet Volume 8.9 fL (7.4-10.4)
[2024-10-17 04:48] LABS: C Reactive Protein 21.9 mg/L (0.0-4.9)
[2024-10-17 04:55] LABS: NT Pro B Type Natriuretic Pept 968 pg/mL (0-125); Procalcitonin 0.36 ng/mL (0-0.5)
[2024-10-17 05:08] LABS: Anion Gap 8.9 (5-19); Blood Urea Nitrogen 19 mg/dL (6-20); Calcium 7.6 mg/dL (8.5-10.5); Carbon Dioxide 25 mmol/L (22-29); Chloride 109 mmol/L (98-107); Creatinine Clr Calc Pharmacy 107.3726; Glomerular Filtration Rate 99.6 mL/min (90-130); Glucose 138 mg/dL (65-115); Osmolality Calculated 290 mOsm/kg (285-295); Potassium 4.9 mmol/L (3.5-5.1); Sodium 138 mmol/L (136-145)
[2024-10-17] MEDS: budesonide 0.5 mg/2 mL Neb 0.25 MG INHALATION ×2 (09:25→19:58)
[2024-10-17] MEDS: gabapentin 300 mg Capsule 600 MG PO ×3 (10:01→19:59)
[2024-10-17] MEDS: oseltamivir phosphate 75 mg Capsule PO ×2 (10:02→18:06)
[2024-10-17] MEDS: multivitamin therapeutic Tablet 1 TAB PO (10:02)
[2024-10-17] MEDS: predniSONE 20 mg Tablet 40 MG PO (10:02)
[2024-10-17] MEDS: sucralfate 1 gm/10 mL Oral Liq UDC PO ×2 (10:03→19:59)
[2024-10-17] MEDS: folic acid 1 mg Tablet PO (10:03)
[2024-10-17] MEDS: thiamine 100 mg Tablet PO (10:03)
[2024-10-17] MEDS: atorvastatin 40 mg Tablet PO (10:04)
[2024-10-17] MEDS: HYDROcodone-acetaminophen 10-325 mg Tablet 1 TAB PO ×2 (10:08→19:57)
[2024-10-17 15:59] LABS: Vitamin B1(Thiamin) Plas/Ser 912 nmol/L (8-30)
--- NOTE | 2024-10-17 17:33 | P.PN_ITS ---
Subjective 2 Subjective: Patient was seen this morning, continues to complain of generalized weakness, fatigue, malaise, no nausea, no vomiting, no fevers, no chills Vitals/I&O/Wt Last Vital Signs Temp 98.4 F 10/17/24 12:00 Pulse 93 10/17/24 16:50 Resp 18 10/17/24 16:40 BP 126/68 10/17/24 12:00 Pulse Ox 93 10/17/24 16:40 O2 Del Method Room Air 10/17/24 16:40 O2 Flow Rate 3 10/17/24 13:50 FiO2 21 10/15/24 04:55 10/17/24 10/17/24 10/17/24 06:59 14:59 22:59 Output Total 400 / 1250 Balance -400 / -1010 Weight last 48 hrs Weight 88.133 kg Weight 87.135 kg Physical Exam 2 Const: COMMON NORMALS: no acute distress and patient oriented x3 Resp: COMMON NORMALS: normal respiratory effort, No retractions, No use of accessory muscles and clear to auscultation bilaterally AUSCULTATION: clear to auscultation bilaterally Cardio: COMMON NORMALS: regular rate, regular rhythm, S1 normal heart sound present and S2 normal heart sound present RATE: regular rate RHYTHM: r egular rhythm HEART SOUNDS: S1 normal heart sound present and S2 normal heart sound present GI: COMMON NORMALS: Normal to inspection, nondistended, normoactive bowel sounds present and non-tender Extremity: COMMON NORMALS: no pedal edema Neuro: COMMON NORMALS: patient oriented x3 Psych: COMMON NORMALS: mental status grossly normal Urinary Catheter Management: Boyd: Cath Placed During This Visit: yes Reason for Continuing Indwelling Catheter: Acute Urinary Retention or Obstruction Urinary Catheter Date of Insertion: 10/13/24 Urinary Catheter Time of Insertion: 11:40 Data 10/17/24 04:00 10/17/24 04:00 A&P Assessment and plan (1) Acute hypoxic respiratory failure: (2) Pneumonia: (3) Atypical pneumonia: (4) Sepsis: (5) Anemia: (6) Thrombocytopenia: (7) UTI (urinary tract infection): (8) Acute encephalopathy: (9) Lactic acidosis: (10) Elevated INR: (11) Cirrhosis of liver: Plan Acute hypoxic respiratory failure -Multifactorial -Likely from underlying pneumonia -With influenza A -Concerns for COPD exacerbation although no formal diagnosis Plan -Monitor respiratory status closely in ICU -Continue BiPAP -Vancomycin discontinued -Zosyn de-escalated to Rocephin -Tamiflu day 3 of 5 -Solu-Medrol, de-escalated to prednisone -DuoNeb -Budesonide -Concern for aspiration, given right upper lobe pneumonia, speech therapy to see dysphagia level 4 diet, modified barium swallow no significant aspiration, advance diet as tolerated Strep pneumonia bacteremia -Repeat blood cultures pending -Transition to Rocephin Sepsis, resolving -Sepsis features met given evidence of acute respiratory failure, acute respiratory distress, lactic acid 5.0, white blood cell count 18,000 Acute encephalopathy, resolving -Toxic and metabolic -Likely from sepsis, pneumonia, influenza -CT head no acute findings -Neurochecks -NIH -Aspiration precautions Concerns for atypical infection -CT of the chest shows 2. Enlarged 1.5 cm subcarinal lymph node. Most probably reactive. 5. Large consolidation with air bronchograms and small pneumatoceles in the right upper lobe. Consistent with severe right upper lobe pneumonia. 6. Patchy/ground-glass consolidations and multiple tree-in-bud nodules throughout the right middle lobe, right lower lobe, and left lung. Consistent with multifocal pneumonia. 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 Cunningham -Reported hemoptysis -No reported consumption of raw milk Plan -Do workup for atypical infection, beta 1 3 glucan negative -LDH 400 -Fungal studies -Aspergillosis -QuantiFERON gold pending -1 AFB smear so far negative -So far unlikely to be fungal infection, or pulmonary tuberculosis -Sputum studies Acute on chronic liver failure -History of liver cirrhosis -Gallbladder ultrasound shows cirrhosis, mildly decompensated portal hypertension - reports no alcoholism in the last 4 years -CT scan shows evidence of liver cirrhosis, portal hypertension, splenomegaly -Albumin 2.5 -Creatinine 1.2 -T. bili 4.1, -AST 85 -Alk phos 171 -Ammonia 31 acute hep, hepatitis C panel positive, PCR positive will have to follow-up with infectious disease Acute anemia, hemoglobin up to 9.4 -Low MCV -Evidence of iron deficiency anemia -Iron 17, ferritin 166 -Hemoccult stool ? Hemoglobin down to 7.5 transfuse 1 unit PRBC - Acute on chronic thrombocytopenia -Likely sec to liver failure -Monitor Lactic acidosis -Likely from sepsis NSTEMI -Serial EKGs, serial troponins, telemetry monitoring Urinary tract infection, antibiotics as above Elevated INR, likely from liver failure Acute deconditioning, PT OT Full code Lovenox for DVT prophylaxis currently on hold, SCDs for DVT prophylaxis Patient requires hospitalization for streptococcal bacteremia. IV antibiotics, PDMP PDMP Reviewed: Not Reviewed Attestations 2 Medical Necessity Statement*: Patient requires streptococcal bacteremia requiring IV antibiotics Diagnoses Acute hypoxic respiratory failure J96.01 Pneumonia J18.9 Atypical pneumonia J18.9 Sepsis A41.9 Anemia D64.9 Thrombocytopenia D69.6 UTI (urinary tract infection) N39.0 Acute encephalopathy G93.40 Lactic acidosis E87.20 Elevated INR R79.1 Cirrhosis of liver K74.60
[2024-10-17] MEDS: pantoprazole DR 40 mg Tablet PO (18:06)
[2024-10-17] MEDS: cefTRIAXone 1,000 mg SDV 1000 MG IVP (19:48)
[2024-10-18] VITALS (8 sets, daily range): BP systolic 135–138; BP diastolic 67–74; PULSE 58–87; RESP 16–20; TEMP 36.6–37.1; O2SAT 88–97
[2024-10-18 04:30] LABS: Basophils % 0.2 %; Hematocrit 31.2 % (37-53); Lymphocytes % 15.7 %; Mean Corpuscular HGB Conc 29.5 g/dL (30-55); Mean Corpuscular Hemoglobin 22.4 pg (27-33); Mean Corpuscular Volume 75.9 fl (82-101); Monocytes # 0.4 10^3/uL (0.2-0.9); Monocytes % 6.6 %; Neutrophils # 4.72 10^3/uL (1.8-7.7); Neutrophils % 76.2 %; Nucleated Red Blood Cells % 0.3 %; Platelet Count 54 10^3/cmm (157-399); Red Blood Count 4.11 10^6/uL (3.85-5.65); Red Cell Distribution Width 22.2 % (12.1-15.1); White Blood Count 6.19 10^3/uL (3.29-11.43)
[2024-10-18 04:42] LABS: Anion Gap 7.1 (5-19); Blood Urea Nitrogen 18 mg/dL (6-20); Calcium 7.4 mg/dL (8.5-10.5); Carbon Dioxide 26 mmol/L (22-29); Chloride 109 mmol/L (98-107); Glomerular Filtration Rate 116.2 mL/min (90-130); Glucose 125 mg/dL (65-115); Osmolality Calculated 287 mOsm/kg (285-295); Potassium 5.1 mmol/L (3.5-5.1); Sodium 137 mmol/L (136-145)
[2024-10-18 04:51] LABS: Mean Platelet Volume 9.5 fL (7.4-10.4)
[2024-10-18] MEDS: folic acid 1 mg Tablet PO (08:45)
[2024-10-18] MEDS: multivitamin therapeutic Tablet 1 TAB PO (08:45)
[2024-10-18] MEDS: pantoprazole DR 40 mg Tablet PO (08:45)
[2024-10-18] MEDS: gabapentin 300 mg Capsule 600 MG PO (08:45)
[2024-10-18] MEDS: atorvastatin 40 mg Tablet PO (08:45)
[2024-10-18] MEDS: thiamine 100 mg Tablet PO (08:46)
[2024-10-18] MEDS: predniSONE 20 mg Tablet 40 MG PO (08:47)
[2024-10-18] MEDS: sucralfate 1 gm/10 mL Oral Liq UDC PO (08:47)
[2024-10-18] MEDS: HYDROcodone-acetaminophen 10-325 mg Tablet 1 TAB PO (08:51)
[2024-10-18] MEDS: budesonide 0.5 mg/2 mL Neb 0.25 MG INHALATION (09:03)
[2024-10-18] MEDS: ipratropium-albuterol 3 mL Neb INHALATION ×2 (09:03→11:45)
[2024-10-18 10:14] LABS: NT Pro B Type Natriuretic Pept 526 pg/mL (0-125)
--- NOTE | 2024-10-18 12:04 | P.DS_ITS ---
Discharge Providers Date of Admission: 10/12/24 17:05 Date of Discharge: October 18, 2024 Attending Provider at Admission: Piotr Shin MD Attending Provider at Discharge: Piotr Shin MD Primary Care Provider: Stephanie Baird Diagnoses at Discharge Discharge Diagnosis (1) Acute hypoxic respiratory failure: Status: Acute (2) Pneumonia: Status: Acute (3) Atypical pneumonia: Status: Acute (4) Sepsis: Status: Acute (5) Anemia: Status: Acute (6) Thrombocytopenia: Status: Inactive (7) UTI (urinary tract infection): Status: Acute (8) Acute encephalopathy: Status: Acute (9) Lactic acidosis: Status: Acute (10) Elevated INR: Status: Acute (11) Cirrhosis of liver: Status: Acute Reason for Visit Reason for Visit: weakness Hospital Course Hospital Course Alexandr Moulton is a 59 year old male history of alcoholism, history of pancytopenia, history of liver cirrhosis, splenomegaly, history of pulmonary nodules, history of small left pleural effusion/thickening, hypertension, history of cervical spondylosis, history of smoking, history of bilateral carotid artery stenosis, who presents to [facility] due to shortness of breath, cough, altered mental status. Currently patient is alert to person, to place, not to time he can follow commands but has episodes of confusion, altered mentation, tries to take off his oxygen,. Patient reports shortness of breath, trouble catching his breath, does report bloody cough, no falls, no injuries, does report alcoholism, but does not remember the last time he drank alcohol, does report smoking, does report fatigue, malaise does report fevers. He tells me he lives in [place] with his . His is also sick. On arrival to the emergency room, he was 86% on room air, tachypneic tachycardic placed on 4 L and is now on mid 90s. During my examination he is tachycardic, heart rates into the 130s sinus tachycardia tachypneic respiratory 20-30, mild respiratory distress nasal flaring intercostal retractions suprasternal retractions, nasal flaring, actively coughing, actively wheezing. Workup in the emergency room showed evidence of sepsis white blood cell count 18.99 lactic acid, 5.0, evidence of liver failure, bili 4.1, alk phos 171, AST 85, albumin 2.5, INR 1.46, hemoglobin 9.9, MCV 74.6, platelet count 88, influenza A positive, CT of the chest showing right upper lobe consolidation, right middle and lower lobe and left lung patchy groundglass consolidation multiple tree-in-bud nodules concerning for multifocal pneumonia, severe right upper lobe pneumonia. Patient denies a history of fungal infection and is from [facility] originally. 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 Cunningham for his anemia, thrombocytopenia pulmonary nodules but did not like Dr. Cunningham so stopped following up with him, he has never seen a bench worker, she tells me that about a week ago, Alexandr had a GI bug, after that resolved in 24 hours, he started developing sinus symptoms, congestion, cough, shortness of breath which progressed, she also started getting sick, yesterday evening Alexandr had significant episodes of shortness of breath, episodes of confusion, which progressively worsened, she reports that he has not consumed any alcohol for the last 4 years, he does vape, no drug use Patient was admitted to [facility] for acute hypoxic respiratory failure multifactorial from right upper lobe pneumonia, influenza A, COPD exacerbation/vape induced lung injury, streptococcal pneumonia bacteremia, sepsis, acute encephalopathy. Patient required ICU level care for acute respiratory failure, received broad-spectrum antibiotic therapy, steroid therapy, Tamiflu, overall clinically improved moved to medical floors, overall has clinically improved, remained afebrile, repeat blood cultures have been negative -For streptococcal pneumonia bacteremia, he will be discharged on 7 more days of p.o. Levaquin, completed roughly 7 days of IV antibiotics, repeat blood cultures so far are negative -For his vape induced lung injury, COPD exacerbation discharged on a steroid burst, on discharge I had a extensive discussion with him and his about quitting vaping, he voiced understanding, all questions answered. Will be discharged on albuterol, Advair with close follow-up with pulmonary as outpatient -Acute encephalopathy resolved -Influenza, completed Tamiflu -For his right upper lobe pneumonia had a modified barium swallow, speech therap y evaluation, overall clinically proved will be discharged on dysphagia level 5 diet minced and moist, thin liquids During his hospitalization, CT of the chest did show a 1.5 cm subcarinal lymph node, patchy/groundglass consolidations, multiple tree-in-bud blood nodules throughout the right middle lobe, right lower lobe and left lung. Patient had a workup for atypical infections, beta 1 3 glucan was negative, LDH was 400 so far his 1 AFB are is negative, low likelihood for pulmonary tuberculosis. Nonetheless patient was advised to monitor for fevers, chills, hemoptysis if so please come back to the hospital. For now avoid public places, follow-up with pulmonary for repeat CT scan in 6 weeks. Patient was found to have evidence of acute on chronic liver failure, with history of liver cirrhosis, patient and are adamant that he has not consumed alcohol in the last 4 years and they seem very reliable, he has anemia, thrombocytopenia, hypoalbuminemia. On discharge I had a extensive discussion with patient and his about ensuring that he follows up with GI in [place], at some point he will have see transplant team at [facility] Patient was found to have hepatitis C, PCR positive, I had an extensive discussion with patient and about this, he has to follow-up with infectious disease for treatment, discussed morbidity and mortality associate with hepatitis C and his liver cirrhosis During his hospitalization he had acute anemia, with evidence of iron deficiency, required 1 unit PRBC, no blood or black stools reported. Overall hemoglobin has been stable, will discharge on Protonix, Carafate with follow-up with GI in [place] for consideration EGD and colonoscopy On discharge I did detailed discussion with patient and his about all above findings this hospitalization, he and his voiced understanding, all question answered, agreed to proceed Physical Exam Const: COMMON NORMALS: no acute distress and patient oriented x3 Resp: COMMON NORMALS: normal respiratory effort, No retractions, No use of accessory muscles and clear to auscultation bilaterally AUSCULTATION: clear to auscultation bilaterally Cardio: COMMON NORMALS: regular rate, regular rhythm, S1 normal heart sound present and S2 normal heart sound present RATE: regular rate RHYTHM: reg ular rhythm HEART SOUNDS: S1 normal heart sound present and S2 normal heart sound present GI: COMMON NORMALS: Normal to inspection, nondistended, normoactive bowel sounds present and non-tender Extremity: COMMON NORMALS: no pedal edema Neuro: COMMON NORMALS: patient oriented x3 Psych: COMMON NORMALS: mental status grossly normal Urinary Catheter Management: Boyd: Cath Placed During This Visit: yes, but has since been removed by the nurse Reason for Continuing Indwelling Catheter: Not indwelling catheter Urinary Catheter Date of Insertion: 10/13/24 Urinary Catheter Time of Insertion: 11:40 Date Urinary Catheter Removed: 10/17/24 Time Urinary Catheter Discontinued: 15:15 Discharge Data Studies Completed and Pending Completed Studies During Hospitalization Category Date Time Status CT angio chest PE protcl [id number] Stat Cat Scan 10/12/24 16:[address] head wo con* [id number] Routine Cat Scan 10/12/24 20:01 Completed FL barium swallow modifd [id number] Routine Exams 10/15/24 16:33 Completed XR chest 1V portable [id number] Stat Exams 10/12/24 15:34 Completed CV. echo complete* [id number] Routine Ultrasound 10/13/24 08:14 Completed US gall bladder [id number] Stat Ultrasound 10/12/24 16:40 Completed Pending at discharge Category Date Time Status AFB [Mycobacteria, Culture w/Fluor] Stat Lab 10/12/24 06:05 Results Aspergillus DNA Qualitativ PCR Routine Lab 10/14/24 09:30 Ordered BLASTOMYCES AG [MVista Blastomyces AG Quant] Routine Lab 10/12/24 23:33 Received Basic Metabolic Panel AM LABS Lab 10/19/24 04:00 Ordered Basic Metabolic Panel AM LABS Lab 10/20/24 04:00 Ordered Blood Culture Stat Lab 10/14/24 01:58 Results Coccidioides AB Immunodiffusio Routine Lab 10/12/24 20:01 Received Complete Blood Count w/Auto AM LABS Lab 10/19/24 04:00 Ordered Complete Blood Count w/Auto AM LABS Lab 10/20/24 04:00 Ordered Fungal Culture not HR/SK/BL Routine Lab 10/13/24 08:31 Ordered Histoplasma Quantitative AG Routine Lab 10/12/24 23:33 Received PJP Qual Sputum [Pneumocystis jiroveci Qual PCR] Lab 10/12/24 17:10 Ordered Routine Lumvwtoetjs-FZ-Ehdu Plus Routine Lab 10/12/24 17:10 Received Radiology Impressions Chest X-Ray 10/12/24 15:34 IMPRESSION: 1. Stable left lung pleural thickening and calcified pleural plaques. The presence of a trace effusion is in the differential diagnosis. 2. Large consolidation in the right upper lobe. Most consistent with severe pneumonia. Chest CTA 10/12/24 16:16 IMPRESSION: 1. No evidence of acute pulmonary emboli, with the caveat that the segmental and subsegmental branches are slightly obscured by motion artifact. 2. Enlarged 1.5 cm subcarinal lymph node. Most probably reactive. 3. Cirrhosis and mildly decompensated portal hypertension. 4. Acute/chronic bronchitis or reactive airways disease. 5. Large consolidation with air bronchograms and small pneumatoceles in the right upper lobe. Consistent with severe right upper lobe pneumonia. 6. Patchy/ground-glass consolidations and multiple tree-in-bud nodules throughout the right middle lobe, right lower lobe, and left lung. Consistent with multifocal pneumonia. 7. Incidental findings as above. Gallbladder Ultrasound 10/12/24 16:40 IMPRESSION: Cirrhosis and mildly decompensated portal hypertension. Head CT 10/12/24 20:01 IMPRESSION: No acute intracranial abnormality. Modified Barium Swallow 10/15/24 16:33 IMPRESSION: 1. The patient could not tolerate solid barium mixture foodstuffs. The patient tolerated liquid and pudding consistency barium foodstuffs without difficulty. 2. No aspiration or penetration was identified. A separate report and recommendations will follow from the speech therapy service. Laboratory Results WBC 6.19 10^3/uL (3.29-11.43) 10/18/24 03:11 RBC 4.11 10^6/uL (3.85-5.65) 10/18/24 03:11 Hgb 9.20 g/dL (11.27-16.99) L 10/18/24 03:11 Hct 31.2 % (37-53) L 10/18/24 03:11 MCV 75.9 fl (82-101) L 10/18/24 03:11 MCH 22.4 pg (27-33) L 10/18/24 03:11 MCHC 29.5 g/dL (30-55) L 10/18/24 03:11 RDW 22.2 % (12.1-15.1) H 10/18/24 03:11 Plt Count 54 10^3/cmm (157-399) L 10/18/24 03:11 MPV 9.5 fL (7.4-10.4) 10/18/24 03:11 Neut % (Auto) 76.2 % 10/18/24 03:11 Lymph % (Auto) 15.7 % 10/18/24 03:11 [place] % (Auto) 6.6 % 10/18/24 03:11 Eos % (Auto) 0.0 % 10/18/24 03:11 Baso % (Auto) 0.2 % 10/18/24 03:11 Neut # (Auto) 4.72 10^3/uL (1.8-7.7) 10/18/24 03:11 Lymph # (Auto) 1.0 10^3/uL (0.8-4.8) 10/18/24 03:11 [place] # (Auto) 0.4 10^3/uL (0.2-0.9) 10/18/24 03:11 Eos # (Auto) 0.0 10^3/uL (0.0-0.8) 10/18/24 03:11 Baso # (Auto) 0.0 10^3/uL (0.0-0.1) 10/18/24 03:11 Nucleated RBC % (auto) 0.3 % 10/18/24 03:11 Nucleated RBCs # 0.0 /100WBC 10/18/24 03:11 ESR 13 mm/hr (0-10) H 10/12/24 18:48 PT 19.00 SECONDS (12.1-14.9) H 10/14/24 01:58 INR 1.49 (0.8-1.2) H 10/14/24 01:58 APTT 40.1 SECONDS (23.9-36.7) H 10/12/24 15:42 D-Dimer 2.97 ug/mLFEU (0-0.59) H 10/12/24 15:42 Specimen Type Arterial 10/12/24 15:33 Sample Site Radial, right 10/12/24 15:33 ABG pH 7.44 (7.35-7.45) 10/12/24 15:33 ABG pCO2 38.7 mmHg (35-45) 10/12/24 15:33 ABG pO2 54.7 mmHg (80.0-100.0) L 10/12/24 15:33 ABG PO2/FiO2 Ratio 260 10/12/24 15:33 ABG HCO3 26.1 mmol/L (22-26) H 10/12/24 15:33 ABG O2 Saturation 88.6 10/12/24 15:33 ABG Base Excess 1.9 mmol/L (-2.0-2.0) 10/12/24 15:33 Johnathon Test Pos 10/12/24 15:33 A-a O2 Gradient 6.3 mmHg (5-10) 10/12/24 15:33 Hematocrit 29.6 % (42-52) L 10/12/24 15:33 Hgb O2 Saturation 86.2 % (95-100) L 10/12/24 15:33 Carboxyhemoglobin 1.6 %THgb (0.4-20.1) 10/12/24 15:33 Methemoglobin 1.1 % (0.4-1.5) 10/12/24 15:33 Total Hemoglobin 9.7 g/dL (14-18) L 10/12/24 15:33 Sodium 142.0 mmol/L (131-143) 10/12/24 15:33 Potassium 3.4 mmol/L (3.5-5.0) L 10/12/24 15:33 Glucose 94.0 mg/dL (70-115) 10/12/24 15:33 Ionized Calcium 1.2 mmol/L (1.1-1.4) 10/12/24 15:33 O2 Delivery Device Room air 10/12/24 15:33 FiO2 21.0 % 10/12/24 15:33 Bench Tool Maker ID [place] 10/12/24 15:33 Sodium 137 mmol/L (136-145) 10/18/24 03:11 Potassium 5.1 mmol/L (3.5-5.1) 10/18/24 03:11 Chloride 109 mmol/L (98-107) H 10/18/24 03:11 Carbon Dioxide 26 mmol/L (22-29) 10/18/24 03:11 Anion Gap 7.1 (5-19) 10/18/24 03:11 BUN 18 mg/dL (6-20) 10/18/24 03:11 Creatinine 0.7 mg/dL (0.7-1.2) 10/18/24 03:11 GFR Calculation 116.2 mL/min (90-130) 10/18/24 03:11 Glucose 125 mg/dL (65-115) H 10/18/24 03:11 Estimat Average Glucose 108 10/12/24 03:22 Hemoglobin A1c 5.4 % (4.0-6.0) 10/12/24 03:22 Calculated Osmolality 287 mOsm/kg (285-295) 10/18/24 03:11 Lactic Acid 5.0 mmol/L (0.5-2.2) H* 10/12/24 15:42 Lactic Acid (Sepsis) 3.4 mmol/L (0.5-2.2) H 10/12/24 18:48 Lactate 1.9 mmol/L (0.5-2.2) 10/14/24 01:58 Calcium 7.4 mg/dL (8.5-10.5) L 10/18/24 03:11 Phosphorus 1.7 mg/dL (2.5-4.5) L 10/14/24 01:58 Magnesium 3.0 mg/dL (1.7-2.3) H 10/14/24 01:58 Iron 17 ug/dL (59-158) L 10/12/24 17:43 TIBC 213 mcg/dl 10/12/24 17:43 % Saturation 7.9 % (20-50) L 10/12/24 17:43 Unsat Iron Binding 196 ug/dL (112-347) 10/12/24 17:43 Ferritin 166 ng/mL (30-400) 10/12/24 17:43 Total Bilirubin 3.7 mg/dL (0.15-1.2) H 10/14/24 01:58 Direct Bilirubin 3.00 mg/dL (0.00-0.30) H 10/12/24 17:43 Indirect Bilirubin 0.50 10/12/24 17:43 AST 105 U/L (0-40) H 10/14/24 01:58 ALT 21 U/L (0-41) 10/14/24 01:58 Alkaline Phosphatase 119 U/L (40-130) 10/14/24 01:58 Ammonia 31 umol/L (16-60) 10/12/24 15:42 Lactate Dehydrogenase 400 U/L (135-225) H 10/12/24 17:43 Troponin T Baseline 41 ng/L (0-15) H 10/12/24 15:42 Troponin T 120 Minute 40.33 ng/L (0-15) H 10/12/24 17:43 Delta Troponin T -0.67 ABS# (0-10) L 10/12/24 17:43 Troponin T Hi Sens 6Hr 41.71 ng/L (0-15) H 10/12/24 23:33 Troponin T Hi Sens 6Hr Delta 0.71 ng/L (0-12) 10/12/24 23:33 C-Reactive Protein 21.9 mg/L (0.0-4.9) H 10/17/24 04:00 NT-Pro-B Natriuret Pep 526 pg/mL (0-125) H 10/18/24 03:11 Total Protein 5.4 g/dL (6.6-8.7) L 10/14/24 01:58 Albumin 2.3 g/dL (3.5-5.2) L 10/14/24 01:58 Globulin 3.1 g/dL (1.3-4.6) 10/14/24 01:58 Lipase 6 U/L (13-60) L 10/12/24 17:43 Vitamin B1 912 nmol/L (8-30) H 10/12/24 23:33 Vitamin B12 > 2000 pg/mL (232-1245) H 10/12/24 17:43 Folate 4.8 ng/mL (4.5-32.2) 10/12/24 15:42 Procalcitonin 0.36 ng/mL (0-0.5) 10/17/24 04:00 TSH 0.12 uIU/mL (0.27-4.20) L 10/12/24 17:43 Urine Color Dark yellow (Yellow) A 10/12/24 17:26 Urine Appearance Clear (CLEAR) 10/12/24 17: Urine pH 6.0 (5-7) 10/12/24 17: Ur Specific Edwards 1.057 (1.005-1.030) H 10/12/24 17:26 Urine Protein 2+ (Negative) A 10/12/24 17: Urine Glucose (UA) Negative (Normal) 10/12/24 17:26 Urine Ketones Negative (Negative) 10/12/24 17:26 Urine Blood 2+ (Negative) A 10/12/24 17:26 Urine Nitrate Negative (Negative) 10/12/24 17: Urine Bilirubin 1+ (Negative) H 10/12/24 17:26 Urine Urobilinogen 4.0 mg/dL (Negative) H 10/12/24 17:26 Ur Leukocyte Esterase Negative (Negative) 10/12/24 17:26 Urine RBC 25-40 /hpf (0-2) H 10/12/24 17:26 Urine WBC 0-4 /hpf (0-5) H 10/12/24 17:26 Ur Squamous Epith Cells 0-4 /hpf (0-5) H 10/12/24 17:26 Amorphous Sediment Not Reportable 10/12/24 17:26 Urine Bacteria Trace /hpf (NONE) 10/12/24 17:26 Hyaline Casts 0-4 /lpf H 10/12/24 17:26 Fine Granular Casts 5-10 /lpf H 10/12/24 17:26 Urine Mucus Trace /hpf 10/12/24 17:26 Ur Oval Fat Bodies 2+ /hpf 10/12/24 17:26 Vancomycin Trough 13.6 ug/mL (10-15) 10/14/24 16:10 Ethyl Alcohol < 10 mg/dL (0-10) 10/12/24 15:42 Hepatitis A IgM Ab Non-reactive (Nonreactive) 10/12/24 15:42 Hep Bs Antigen Non-reactive (Nonreactive) 10/12/24 15:42 Hep B Core IgM Ab Non-reactive (Nonreactive) 10/12/24 15:42 Hepatitis C Antibody Reactive (Nonreactive) H 10/12/24 15:42 HCV RNA (PCR) IUs/ml 6.64 Log IU/mL (NOT DETECTED) H 10/13/24 03:22 HCV RNA (PCR) IU log10 [id number] IU/mL (NOT DETECTED) H 10/13/24 03:22 HIV 1&2 Ab & HIV 1 Ag Non-reactive (Non-Reactiv) 10/12/24 15:42 HIV 1&2 Antibody Non-reactive (Non-Reactiv) 10/12/24 15:42 Influenza A (PCR) Positive (Negative) 10/12/24 14:45 Influenza Type B (PCR) Negative (Negative) 10/12/24 14:45 Aspergillus Source Cancelled 10/13/24 03:22 Aspergillus sp (PCR) Cancelled 10/13/24 03:22 A. fumigatus (PCR) Cancelled 10/13/24 03:22 A. galactomannan Ag EIA Not detected 10/13/24 03:22 A. galactomannan Ag Idx <0.50 10/13/24 03:22 A. terreus (PCR) Cancelled 10/13/24 03:22 RSV (PCR) Negative (Negative) 10/12/24 14:45 SARS-CoV-2 (PCR) Negative (Negative) 10/12/24 14:45 Beta-(1,3)-D-Glucan <31 pg/ml 10/12/24 23:33 B-(1,3)-D-Glucan Intrp Negative (Negative) 10/12/24 23:33 Blood Type B Positive 10/15/24 19:17 Rho(D) Type Rh positive 10/15/24 19:17 Antibody Screen Negative 10/15/24 19:17 Crossmatch See Detail 10/15/24 19:17 Vitals Last Vital Signs Temp 98.0 F 10/18/24 11:57 Pulse 84 10/18/24 11:57 Resp 16 10/18/24 11:57 BP 137/67 10/18/24 11:57 Pulse Ox 97 10/18/24 11:57 O2 Del Method Nasal Cannula 10/18/24 11:57 O2 Flow Rate 3 10/18/24 08:00 FiO2 21 10/15/24 04:55 Discharge Plan Discharge Patient Disposition: Home Condition: Stable Prescriptions: New sucralfate 100 mg/mL Suspension 1 g PO Q12H 30 Days Qty: 600 0RF prednisone 20 mg Tablet 40 mg PO DAILY 3 Days Qty: 6 0RF pantoprazole 40 mg Tablet,Delayed Release (Dr/Ec) 40 mg PO BID 30 Days Qty: 60 0RF multivitamin with folic acid [Thera] 400 mcg Tablet 1 tab PO DAILY 30 Days Qty: 30 0RF levofloxacin 750 mg tablet 750 mg PO DAILY 7 Days Qty: 7 0RF albuterol sulfate [Ventolin HFA] 90 mcg/actuation HFA aerosol inhaler 1 inh inhalation Q6H PRN (Reason: shortness of breath or wheezing) Qty: 8.5 0RF fluticasone propion-salmeterol [Advair Diskus] 100-50 mcg/dose blister with device 1 inh inhalation BID 30 Days Qty: 60 0RF Continued gabapentin 600 mg tablet 600 mg PO TID rosuvastatin 10 mg tablet 10 mg PO DAILY Rx Instructions: TAKE 1 TABLET(10 MG) BY MOUTH DAILY IN THE EVENING thiamine HCl (vitamin B1) 100 mg tablet 100 mg PO DAILY 30 Days Qty: 30 3RF Rx Instructions: take one tablet daily Changed hydrocodone-acetaminophen 10-325 mg tablet 1 tab PO Q4H PRN (Reason: pain) Qty: 1 0RF Discharge Orders: Discharge Order (Routine); Ordered 10/18/24 Ordered By: Piotr Shin Referrals: Saran Crawford MD [Referring] - 1 week (liver cirrhosis, hep c) Stephanie Baird PAINT SPECIALIST [Primary Care Provider] - 1-3 days Cherie Lagos MD [Hospitalist] - 11/16/24 10:30 am Donnell Padron MD, MBBS, MPH [Referring] - 1 month (copd, vape induced lung injury) Discharge Diet: Cardiac Discharge Activity: Resume usual activity Patient Instructions: Opioid Safety Activity Restrictions/Additional Instructions: - Please stop vaping -Please abstain from alcohol consumption, patient has been sober for the last 4 years -Please take antibiotics as prescribed -Please take albuterol and Advair as prescribed -Take steroids as prescribed -Please avoid public areas -If any fevers, chills, bloody cough please go to the emergency room -See primary care in 1 week recheck CBC and CMP -For your diet try dysphagia level 5 diet minced and moist, thin liquids -Please follow-up with the lung doctor, repeat CAT scan in 6 weeks -Monitor for anemia, please avoid blood thinners, avoid ibuprofen, have your primary care provider recheck your hemoglobin in 1 week -Follow-up with GI in [place] for consideration of EGD and colonoscopy in 1 month -Follow-up with GI in [place] for liver cirrhosis -Follow-up with infectious disease for hepatitis C for treatment -Follow-up with lung doctor in 1 month Discharge Attestations Time Spent in Discharge Care*: greater than 30 min Time Spent in Smoking Cessation: more than 10 minutes Quality Metrics Clinical Quality Measures [ No reported AMI, CVA or VTE this stay] Coding Level of Care Code 69659 Total time (in minutes) for Discharge: 45 Diagnoses Acute hypoxic respiratory failure J96.01 Pneumonia J18.9 Atypical pneumonia J18.9 Sepsis A41.9 Anemia D64.9 Thrombocytopenia D69.6 UTI (urinary tract infection) N39.0 Acute encephalopathy G93.40 Lactic acidosis E87.20 Elevated INR R79.1 Cirrhosis of liver K74.60
--- NOTE | 2024-10-18 12:32 | PC.SOCIAL ---
IMM Update pg 2 of IMM Updated and reviewed w/ patient. Copy provided and copy dated, initialed and placed in chart.
--- NOTE | 2024-10-18 15:20 | PC.NURSE ---
Patient was late being discharged due to waiting on Oxygen to arrive.
--- NOTE | 2024-10-18 15:21 | PC.NURSE ---
Discussed discharge with patient and spouse. Discussed all follow up appointments and follow up lab orders, CBC, CMP and HGB. Discussed appointments in [place] and when to notify the offices. Discussed medications with both parties. Both agreed and verbalized understanding.
[2024-10-19 13:09] LABS: Quantiferon Mitogen 3.18 IU/mL; Quantiferon Nil 0.01 IU/mL; Quantiferon TB Gold NEGATIVE (NEGATIVE)
[2024-10-19 22:00] LABS: Coccidioides IgG Antibody NEGATIVE; Coccidioides IgM Antibody NEGATIVE
[2024-10-20 08:19] LABS: Blastomyces Antigen Interpret NEGATIVE; Blastomyces Antigen Result NONE DETECTED; Histoplasma Antigen (Quant) NONE DETECTED; Histoplasma Antigen Interpreta NEGATIVE; Histoplasma Antigen Specimen SERUM
== END 2024-10-18 15:05 | disposition home or self-care (01) | DRG 871 ==
LOC: ER 15:44 → CSU 17:06 → ICU 18:13 → CSU 10-14 18:34 → MEDSURG 10-15 10:46
PROVIDERS: Admitting Provider Family Medicine; Emergency Provider Family Medicine; PCP Nurse Practitioner Family; Visit Provider Family Medicine
DX: A41.9 Sepsis, unspecified organism (principal); G92.8 Other toxic encephalopathy; J96.01 Acute respiratory failure with hypoxia; J15.4 Pneumonia due to other streptococci; K72.00 Acute and subacute hepatic failure without coma; I21.4 Non-ST elevation (NSTEMI) myocardial infarction; N39.0 Urinary tract infection, site not specified; E87.20 Acidosis, unspecified; J44.0 Chronic obstructive pulmonary disease with (acute) lower respiratory infection; J44.1 Chronic obstructive pulmonary disease with (acute) exacerbation; K76.6 Portal hypertension; D50.9 Iron deficiency anemia, unspecified; D69.6 Thrombocytopenia, unspecified; R79.1 Abnormal coagulation profile; K74.60 Unspecified cirrhosis of liver; R16.1 Splenomegaly, not elsewhere classified; I10 Essential (primary) hypertension; R91.1 Solitary pulmonary nodule; U07.0 Vaping-related disorder; J68.9 Unspecified respiratory condition due to chemicals, gases, fumes and vapors; J10.1 Influenza due to other identified influenza virus with other respiratory manifestations; E88.09 Other disorders of plasma-protein metabolism, not elsewhere classified; B19.20 Unspecified viral hepatitis C without hepatic coma; K72.10 Chronic hepatic failure without coma
CPT/HCPCS: 36415; 36430; 36600; 51702; 70450; 71045; 71275; 74230; 76705; 80048; 80051; 80053; 80074; 80202; 80307; 81001; 82140; 82247; 82248; 82330; 82607; 82728; 82746; 82805; 83036; 83540; 83550; 83605; 83615; 83690; 83735; 83880; 84100; 84145; 84425; 84443; 84484; 85025; 85378; 85610; 85651; 85730; 86140; 86480; 86606; 86635; 86850; 86900; 86920; 87015; 87040; 87070; 87086; 87106; 87116; 87150; 87186; 87205; 87206; 87305; 87385; 87449; 87522; 87637; 87798; 87801; 87806; 92523; 92610; 92611; 93005; 93306; 94640; 94660; 94664; 94760; 96365; 96367; 96372; 96375; 96376; 97110; 97162; 97167; 97530; 97535; 99285; J0696; J1650; J2270; J2405; J2470; J2543; J2919; J3370; J3411; J7030; J7050; J7512; J7626; P9040

== ENCOUNTER → 2024-11-15 10:23 | Outpatient (BNVA) | payer MEDICARE, SELFPAY | PROVIDERS: PCP Nurse Practitioner Family; Visit Provider Student in an Organized Health Care Education/Training Program | DX: K74.60 Unspecified cirrhosis of liver (principal); B19.20 Unspecified viral hepatitis C without hepatic coma | CPT/HCPCS: 99215 ==

== ENCOUNTER 2025-02-03 12:20 | Outpatient (CLI) | payer MEDICARE, SELFPAY | END 2025-02-03 12:21 | disposition home or self-care (01) | LOC: SLEEP 12:23 | PROVIDERS: PCP Nurse Practitioner Family; Visit Provider Family Medicine | DX: G47.34 Idiopathic sleep related nonobstructive alveolar hypoventilation (principal) | CPT/HCPCS: 94762 ==

== ENCOUNTER 2025-02-10 09:53 | Outpatient (CLI) | payer MEDICARE, SELFPAY ==
[2025-02-10 10:17] VITALS: PULSE 58; RESP 18; O2SAT 96
[2025-02-10] MEDS: albuterol 2.5 mg/3 mL Neb INHALATION (10:17)
== END 2025-02-10 09:54 | disposition home or self-care (01) ==
PROVIDERS: PCP Nurse Practitioner Family; Visit Provider Family Medicine
DX: R06.09 Other forms of dyspnea (principal); G47.34 Idiopathic sleep related nonobstructive alveolar hypoventilation; J98.8 Other specified respiratory disorders; R94.2 Abnormal results of pulmonary function studies
CPT/HCPCS: 94060; 94726; 94729; J7613

== ENCOUNTER 2025-02-21 13:54 | Outpatient (CLI) | payer MEDICARE, SELFPAY ==
--- NOTE | 2025-02-21 14:02 | XR_ITS ---
WS: [id number] XR shoulder LT min 2V* [id number] REASON FOR EXAM: PAIN IN L SHOULDER FINDINGS: No fracture or focal bone lesion. Moderate narrowing of the acromioclavicular joint space with moderate subchondral sclerosis and mild osteophytosis. There is a notch like area in the superior aspect of the acromial process centrally slightly distal to the joint space with sclerosis and cystic change. Mild narrowing of the glenohumeral joint with moderate subchondral sclerosis and osteophytosis of the glenoid. Significant sclerosis and cystic change underlying the greater biceps tuberosity. Opacification of the left lung apex with pleural thickening and pleural calcification, chronic. Demonstrated on multiple previous examinations including CT scan of the chest 10/12/2024. 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 Mild to moderate osteoarthritis of the glenohumeral joint. Significant rotator cuff tendon arthropathy.
--- NOTE | 2025-02-21 14:02 | XR_ITS ---
WS: [email or web address] XR elbow LT min 3V* [id number] REASON FOR EXAM: PAIN IN LEFT ELBOW FINDINGS: No fracture or focal bone lesion. Mild subchondral sclerosis and osteophytosis at the coronoid and olecranon. With mild narrowing of the joint space. Minimal osteophytosis of the radial head. Sclerosis and cystic change with mild deformity of the lateral epicondyle. This is likely due to overuse of the common flexor tendon. XR/XR elbow LT min 3V* [id number] IMPRESSION: Mild osteoarthritis. Lateral epicondyle abnormality as above.
== END 2025-02-21 13:55 | disposition home or self-care (01) ==
LOC: RAD 13:56
PROVIDERS: PCP Family Medicine; Visit Provider Family Medicine
DX: M19.012 Primary osteoarthritis, left shoulder (principal)
CPT/HCPCS: 73030; 73080

== ENCOUNTER 2025-07-27 14:16 | Outpatient (CLI) | payer MEDICARE, SELFPAY ==
--- NOTE | 2025-07-27 14:23 | XR_ITS ---
WS: [email or web address] Exam: XR chest 2V* [id number] Date/Time of Exam: 07/27/2025 2:30 PM Reason For Exam: COUGH Comparison 10/12/2024. The lungs are fully expanded. No acute infiltrates are noted. Extensive pulmonary parenchymal scarring and fibrosis in the LEFT lung with extensive left-sided pleural thickening and calcified pleural plaque formation. The appearance is stable compared to previous multiple studies. The RIGHT lung is clear. Normal cardiomediastinal silhouette. Bony structures are intact. XR/XR chest 2V* [id number] IMPRESSION: 1. Extensive chronic left-sided pleural and pulmonary parenchymal changes which are stable in appearance. 2. No acute cardiopulmonary process identified.
== END 2025-07-27 14:17 | disposition home or self-care (01) ==
LOC: RAD 14:17
PROVIDERS: PCP Family Medicine; Visit Provider Family Medicine
DX: R05.8 Other specified cough (principal)
CPT/HCPCS: 71046